=== PATIENT | female | born 1965 | race Two or more races ===

== ENCOUNTER 2024-06-14 10:32 | Outpatient (AMB) | payer OTHER, SELFPAY ==
--- NOTE | 2024-06-14 10:45 | GSCOFFNT_ITS ---
Vital Signs - [facility] 06/14/24 10:46 Height 1.63 m Height Method Stated Weight 70.449 kg Weight Measurement Method Standing Scale BMI 26.6 BP 123/76 Blood Pressure Source Automatic Cuff Blood Pressure Location Right Upper Arm Position Sitting Respiration 18 Pulse 90 Pulse Source Monitor Temp 97.8 F Temp Source Temporal Artery Scan Pulse Oximetry (%) 99 Oxygen Delivery Method Room Air Med/Allergies Allergies & Medications Allergies Sulfa (Sulfonamide Antibiotics) Allergy (Verified 06/14/24 10:48) HIVES Medication Reconciliation Unobtainable 06/14/24 [History Confirmed 06/14/24] [place] Intake Visit Data Collection New Patient or Established: Established Patient (seen at [facility] within 3 years) Reason for Visit:: ILEOSTOMY REVERSAL Pain Present Currently: Yes Pain Location: Abdomen Pain scale:: 5 Pain Scale Used: Branett-Pastor/Numerical Accessibility Lift Technician Required: No PCP or OBGYN visit in last 3 months: Yes Hx Now: No Do You Feel Safe at Home: Yes Authorities Contacted: N/A Smoking Status Smoking Status: Never smoker Immunization / Flu Flu Vaccine in the Last 12 Months: No Flu Vaccine Exclusion Criteria: No Exclusion Criteria Past Medical History Surgical History SURGICAL: Positive Abdominal Surgery OTHER SURGICAL HX: Other surgical history: SIGMOIDOSCOPY Social History SMOKING STATUS: Smoking status: Never smoker Travel Risk Travel Hx Recent Travel: No HPI HPI Narrative 59F referred for reversal of loop ileostomy. 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 Pt had followed with Dr Mcelroy and underwent sigmoidoscopy 04/13/2024 showing a normal anal canal and rectum, and an intact colorectal anastomosis. She was planned for ileostomy reversal May 2024 but because of a change in accepted insurances she is no longer able to follow up with Dr Mcelroy. Pt has developed TIAN requiring hospitalization more than once due to dehyration from her ileostomy; she states she has not taken imodium and had not been aware of methods for managing ileostomy output. 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, chronic anemia, hypotension PSHx: Remote hysterectomy for anemia, gastric bypass in 2005, robotic converted to open LAR with cystectomy/cystorrhaphy and diverting loop ileostomy at 10/2023 Meds: Midodrine, sodium citrate, protonix Allergies: Sulfa Social hx: pt quit smoking cigarettes and EtOH after surgery last year Family hx: brother undergoing workup for prostate CA, mother had ?uterine CA ROS Review of Systems Systems Reviewed: All systems reviewed, normal except as documented Objective/Exam General General Appearance: alert, cooperative and well groomed Resp Respiratory exam: Absent respiratory distress Abdominal Abdominal exam: Present soft, incision (midline incision healed) and other (ileostomy pink with liquid stool in appliance); Absent distention or tenderness Results Pathology of LAR noted, no evidence of malignancy Pt underwent full colonoscopy in 2023 before surgical intervention as well as sigmoidectomy 04/2024 showing an intact anastomosis Assessment & Plan Diagnosis / Problem List (1) Ileostomy present: Status: Acute Assessment & Plan: 59F with history of a 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 Pt underwent preoperative workup for ileostomy reversal showing her anastomosis is patent and intact, and has suffered dehydration related to ileostomy output so she is understandably eager to schedule reversal surgery. I explained benefits/risks including need for laparotomy, bleeding, infection, hernia and difficulty managing BMs postoperatively including incontinence which should improve with time. Pt expressed understanding and would like to proceed Plan: Ileostomy reversal Wed 06/27 Office Procedures GNS Level of Care Nursing/Assessment Patient Status: Established Patient Nursing Assessment/Reassesment: Medication Reconciliation, Update PMH in EMR and Vital Signs Coordination of Care: Complex Care and Chronic Disease 1-5, Education Complex Pt/Fam, Consent,records obtained, informed consent, Results/Orders obtained and Staff clarify orders Established Patient Charge Established Patient Point Assignment: 95 Established Patient Point Charge: EP Level 3 (80-115) Patient Portal Questionaires Social History Tobacco History Smoking Status: Never smoker Domestic Abuse History Do You Feel Safe at Home: Yes Review of Systems Report any current symptoms Only answer those that you have currently: Past Medical History Past Medical History Have you ever been diagnosed with any of the following:
[2024-06-14 10:46] VITALS: BP 123/76; PULSE 90; RESP 18; TEMP 36.6; O2SAT 99; BMI 26.6
== END 2024-06-14 11:20 | disposition home or self-care (01) ==
LOC: HODSRG 10:32
PROVIDERS: PCP Family Medicine; Referring Provider Family Medicine; Supervising Provider Surgery; Visit Provider Surgery
DX: Z01.818 Encounter for other preprocedural examination (principal); Z43.2 Encounter for attention to ileostomy
CPT/HCPCS: 99213; G0463

== ENCOUNTER 2024-06-27 05:40 | Inpatient (IN) | payer OTHER, SELFPAY ==
[2024-06-26 10:05] VITALS: BMI 27.1
[2024-06-26 11:12] LABS: Basophils # (Auto) 0.1 Thou/mm3 (0.0-0.2); Basophils % (Auto) 1 % (0-2.5); Eosinophils # (Auto) 0.3 Thou/mm3 (0.0-0.5); Eosinophils % (Auto) 3 % (0-10); Hematocrit 29.7 % (36.0-46.0); Hemoglobin 9.3 g/dL (12.0-16.0); Immature Granulocytes % (Auto) 1 % (0-0); Immature Granulocytes Auto 0.07 Thou/mm3 (0.00-0.00); Lymphocytes # (Auto) 1.6 Thou/mm3 (1.0-4.8); Lymphocytes % (Auto) 17 % (10-50); Mean Corpuscular HGB Conc 31.3 g/dl (31.0-37.0); Mean Corpuscular Volume 90 fL (80-100); Monocytes # (Auto) 0.9 Thou/mm3 (0.0-0.8); Monocytes % (Auto) 10 % (0-12); Neutrophils # (Auto) 6.6 Thou/mm3 (1.8-7.7); Neutrophils % (Auto) 70 % (37-80); Nucleated Red Blood Cell % 0 /100 WBC (0); Platelet Count 347 Thou/mm3 (140-440); RDW Standard Deviation 54.6 fL (36.4-46.3); Red Blood Count 3.32 Miln/mm3 (4.00-5.20); White Blood Count 9.5 Thou/mm3 (3.6-11.0)
[2024-06-26 11:23] LABS: Alanine Aminotransferase 30 U/L (10-49); Albumin, Serum 4.1 gm/dL (3.5-5.0); Albumin/Globulin Ratio 1.5 (1.2-2.2); Anion Gap 12 (7-16); Aspartate Amino Transferase 33 U/L (0-34); BUN/Creatinine Ratio 18 Ratio (12-20); Bilirubin,Total 0.2 mg/dL (0.3-1.2); Blood Urea Nitrogen 30 mg/dL (9-23); Calcium 9.5 mg/dL (8.3-10.6); Calcium (Corrected) 9.5 mg/dL (8.5-10.1); Chloride 113 mMol/L (98-107); Creatinine (Component) 1.7 mg/dL (0.6-1.3); Estimated Creatinine Clearance 34.2 mL/min (>60); Globulin 2.7 gm/dL (2.3-3.5); Glucose 95 mg/dL (74-106); Osmolality,Calculated 280 (275-295); Potassium 3.9 mMol/L (3.4-5.1); Sodium 137 mMol/L (136-145); Total Protein 6.8 gm/dL (5.7-8.2); eGFR 35 See Note
[2024-06-26 11:32] LABS: Partial Thromboplastin Time 32.7 Seconds (22.0-36.0); Prothrombin Time 10.7 Seconds (9.0-12.2)
[2024-06-26 11:34] LABS: Alkaline Phosphatase 222 U/L (46-116)
[2024-06-26 11:35] LABS: Carbon Dioxide 11.7 mMol/L (20.0-31.0)
--- NOTE | 2024-06-26 12:26 | SUR.PREOP ---
Co2 11.7, Hgb 9.3, labs reviewed with Dr Crouch. ok to proceed.
--- NOTE | 2024-06-26 13:17 | SUR.PREOP ---
BMP to be drawn on arrival, Dr Jarquin orders.
[2024-06-27] VITALS (13 sets, daily range): BP systolic 90–131; BP diastolic 57–80; PULSE 53–106; RESP 12–20; TEMP 36.3–36.6; O2SAT 92–100; BMI 27.1
[2024-06-27] MEDS: SODIUM CHLORIDE 0.9% 500 ML 500 ML 20 ML IV (06:33)
[2024-06-27 06:45] LABS: Anion Gap 12 (7-16); BUN/Creatinine Ratio 15 Ratio (12-20); Blood Urea Nitrogen 29 mg/dL (9-23); Calcium 9.8 mg/dL (8.3-10.6); Chloride 114 mMol/L (98-107); Creatinine (Component) 1.9 mg/dL (0.6-1.3); Estimated Creatinine Clearance 30.5 mL/min (>60); Glucose 90 mg/dL (74-106); Osmolality,Calculated 281 (275-295); Potassium 5.1 mMol/L (3.4-5.1); Sodium 138 mMol/L (136-145); eGFR 30 See Note
[2024-06-27 06:46] LABS: Carbon Dioxide 12.5 mMol/L (20.0-31.0)
--- NOTE | 2024-06-27 07:15 | CHAP ---
Patient was very nervous and emotional. She had a previous bad experience from a procedure. I listened and gave reassurance and comfort. Both her and I held her hands and I prayed with her. She calmed down some and the doctor came in and was giving more reassurance as I left.
--- NOTE | 2024-06-27 09:02 | PD.SUROPNT ---
Date of Procedure 06/27/24 Pre Op Diagnosis Ileostomy status Post Op Diagnosis Same Procedure Reversal of ileostomy Findings Cbnf-sy-tter ileoileal anastomosis created Procedure Description After discussion of risks and benefits, patient was brought to the operating room, SCDs were placed and general anesthesia was induced. Her existing loop ileostomy was closed using a running 2-0 silk suture and she was prepped and draped in usual sterile fashion. A Healy catheter was placed and she received preoperative antibiotics. After timeout an elliptical peristomal incision was made with a #15 blade. The tissues were dissected using a combination of electrocautery and blunt dissection until both the afferent and efferent limbs of the ileostomy were freed from the fascia and were sufficiently mobile. The ileostomy was transected on the afferent and efferent limbs using a 60 mm [place] stapler with a gold load and the associated mesentery of the ileostomy was transected with an Enseal device. An ilio ileal anastomosis was made between the afferent and efferent limbs using 2 sequential fires of the 60 mm stapler again with gold loads. The new lumen was examined and was noted to be patent with no signs of bleeding. The common enterotomy was closed with 2 fires of the 60 mm stapler using a green load and the staple line was oversewn with a 3-0 Vicryl suture in a running and locking fashion. 2 Lembert sutures were performed with a 3-0 Vicryl suture at the crotch of the anastomosis. The ileum was then returned to the abdomen. The fascia was closed with figure of 8 sutures using 0 Ethibond and the wound was irrigated. Hemostasis was achieved with electrocautery. The wound was closed with a 2-0 Vicryl pursestring suture and covered with Adaptic, gauze and Tegaderm. Patient was extubated without complication and brought to PACU in stable condition Pathology / specimen Other (Ileostomy) Estimated Blood Loss 50 Surgeon Emeli Crouch MD Surgical Staff Operation Date: 06/27/24 07:30 Case Staff Anesthesiologist: Haile Jarquin RNmine promotor: Trisha Valencia
--- NOTE | 2024-06-27 09:11 | SUR.PHASEI ---
Addendum entered by Ana Maria Roth RN 06/27/24 09:46: Dr. Jarquin requested blood glucose, will obtain and input into EMR Original Note: 0911 Patient arrived to recovery resting in bed, drowsy and talking with staff, on oxygen 4L via nasal cannula, breathing unlabored, patients heart rate elevated, anesthesia provider aware-no new order, will monitor patient, patient endorses pain-anesthesia provider medicated patient, will monitor patients pain, the remainder of patients vital signs are stable, dressing intact to abdomen; sutures, gauze, tegaderm, no bleeding noted, lung sounds clear upon auscultation, bilateral radial pulses present when palpated, report received from Fermin ZAPATA/Ivan ZAPATA and Dr. Jarquin.
--- NOTE | 2024-06-27 10:05 | SUR.PHASEI ---
1005 Patient eating ice chips; tolerating well denies nausea
--- NOTE | 2024-06-27 10:11 | SUR.PHASEI ---
1011 Patient at bedside talking with patient
--- NOTE | 2024-06-27 10:55 | SUR.PHASEI ---
1039 Report given to Claudia Parks RN, patient meets discharge criteria from recovery, awake and talking with staff, on oxygen 2L via nasal cannula, breathing unlabored, vital signs stable, per patient her pain is improved and denies pain, states, I'm just sore , dressing intact; no bleeding noted, eating ice chips; tolerating well, denies nausea. 1048 Patient transported to room 377 without incident. 1055 Patient called to notify of patient room number as well as all questioned answer, stated he would be going to her room now.
--- NOTE | 2024-06-27 11:28 | ESCONSULT_ITS ---
<Statement entered by Valentina Mccormick MD - 06/30/24 07:50> I reviewed above note and agree with findings and plans. I have also personally examined the patient with medicine team and went over assessment and plan with medical team including photography intern and resident physician. <Statement entered by Bozena Piña MD - 06/27/24 15:40> I discussed with and supervised my co-resident involved in the care of this patient. I agree with the assessment and plan as documented above. Consulted by general surgery on a 59 year old female with PMH of infiltrative polypoid cysitits s/p resected with partial cystectomy an diverting loop ileostomy who underwent ileostomy reversal and anastamsosis today. Labs prior to the surgery showed NAGMA which suspect related to GI losses related to the ileostomy. She was also noted to have an TIAN. Upon evaluation, patient is post- op and complaining of pain. Surgical site is bandaged with clean gauze. We will follow up with her chemistry panel post-surgery and again tonight, and will give IV fluids to hydrate the patient and to treat the TIAN. Will monitor I&O. Pain management per general surgery. 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 Patient was admitted to the hospital by general surgery for reversal ileostomy. Patient underwent reversal ileostomy today with no complications. In assessment patient stated that she had been told in the past that her kidneys were at 100% likely due to her ileostomy bag which was having a lot of output. As per patient she was placed on medication to try and help with her acidosis and she was also placed on a medication to increase her blood pressure as well. Upon chart review patient was found to be on midodrine in the past as well as sodium citrate. Patient reports that she has not had any problems with urination or any changes in coloring in her urine, but that she does mention that she frequently emptied her ileostomy bag multiple times throughout the day even though it was not full. She also mentioned that she could have possibly had better oral intake. She stated she follow-up with nephrology in [place], but would like to see another nephrology specialist. Otherwise patient's labs and vitals have been stable. PMH: As above FMH: Mother cancer, but patient unable to specify which 1, father of an [facility] Surgical Hx: Gastric bypass, cystectomy with diverting loop ileostomy, C- sections, hysterectomy Allergies: Sulfa Social Hx: Patient used to smoke 4 cigarettes every other day but quit around 1 year ago, denies any alcohol or illicit drugs Medications: Midodrine 5 mg, sodium citrate, and pantoprazole cc:: cc: Emeli Crouch MD Review of Systems Review of Systems Narrative Review of Systems: Constitutional: Denies sweats, Denies weight loss/gain, Denies fever, Denies chills. HEENT: Denies hearing loss, Denies ear pain, Denies postnasal drip, Denies double vision, Denies blurry vision. Respiratory: Denies shortness of breath, Denies cough, Denies wheezing. Cardiovascular: Denies chest pain, Denies palpitations, Denies sudden loss of consciousness. GI: Denies blood in stool, Denies constipation, Admits abdominal pain, Denies difficulty swallowing, Denies nausea or vomit. : Denies urinary incontinence, Denies pain while urinating, Denies increased urinary frequency. MSK: Denies joint pain, Denies joint swelling, Denies numbness. Skin: Denies rash, Denies itching, Denies easy bruising. Neuro: Denies headaches, Denies dizziness, Denies seizures. 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 status post resection with partial cystectomy and diverting loop ileostomy, chronic anemia, gout, and hypotension FMH: Mother cancer, but patient unable to specify which 1, father of an [facility] Surgical Hx: Gastric bypass, cystectomy with diverting loop ileostomy, C- sections, hysterectomy Allergies: Sulfa Social Hx: Patient used to smoke 4 cigarettes every other day but quit around 1 year ago, denies any alcohol or illicit drugs Medications: Midodrine 5 mg, sodium citrate, and pantoprazole Exam Vital Signs Temp Pulse Resp BP Pulse Ox O2 Flow Rate 97.6 F 89 13 114/68 99 2 06/27/24 10:41 06/27/24 10:41 06/27/24 10:41 06/27/24 10:41 06/27/24 10:41 06/27/24 10:41 Narrative Exam General: A/O x3, mild distress due to pain, well-nourished, well-developed Eyes: PERRL, EOMI. Anicteric, vision grossly intact. Ears: No ear pain, no ear discharge, Hearing grossly intact. Nose: No nasal discharge. Mouth/Throat: Moist mucous membranes, no redness, no lesions. Neck: Neck supple, non-tender, no cervical lymphadenopathy. Lungs: Clear ALEXIA to auscultation and percussion, No accessory muscle use. Cardio: Normal S1/S2, regular rhythm, no murmurs, no JVD Abdomen: Soft, tender near incision site, no palpable masses, peristalsis present, no guarding or rebound. Extremities: Symmetrical, no significant deformities, no peripheral edema , non-tender, peripheral pulses presents. Skin: No rashes, no lesions, warm to touch. Neuro: No focal neurological deficits. motor and sensory intact Psych: Cooperative, appropriate mood and effect. Results Labs 06/26/24 10:35 06/27/24 06:09 Labs: BMP 06/26/24 06/27/24 10:35 06:09 Sodium 137 138 Potassium 3.9 5.1 D Chloride 113 H 114 H Carbon Dioxide 11.7 L* 12.5 L* BUN 30 H 29 H Creatinine 1.7 H 1.9 H Glucose 95 90 Calcium 9.5 9.8 Liver Function 06/26/24 Range/Units 10:35 Total Bilirubin 0.2 L (0.3-1.2) mg/dL AST 33 (0-34) U/L ALT 30 (10-49) U/L Alkaline Phosphatase 222 H (46-116) U/L Albumin 4.1 (3.5-5.0) gm/dL Quality Measures Quality Measures VTE prophylaxis Medications Home Medications and Allergies Home Medications ?Medication ?Instructions ?Recorded ?Confirmed ?Type allopurinol 300 mg tablet 300 mg PO DAILY Gout 5 06/26/24 History pantoprazole 40 mg tablet,delayed 40 mg PO DAILY Stoma ch issues 06/26/24 06/26/24 History release Allergies Allergy/AdvReac Type Severity Reaction Status Date / Time Sulfa (Sulfonamide Allergy HIVES Verified 06/27/24 09:09 Antibiotics) Visit Medications Sodium Chloride (Ns) 500 mls @ 20 mls/hr IV .Q24H ONE Stop: 06/28/24 05:59 Last Admin: 06/27/24 06:33 Dose: 20 mls/hr Meperidine HCl (Meperidine Inj 50 Mg/Ml Vial) 12.5 mg IV Q5M PRN PRN Reason: SHIVERING Stop: 07/02/24 08:45 Metoprolol Tartrate (Metoprolol Tartrate Inj 1 Mg/Ml Amp 5 Ml) 1 mg IVP Q5MIN PRN PRN Reason: TACHYCARDIA Midazolam HCl (Midazolam Inj 1 Mg/Ml Vial 2 Ml) 1 mg IV Q5MIN PRN PRN Reason: ANXIETY Stop: 06/28/24 08:45 Discontinued Medications Fentanyl Citrate (Fentanyl Cit Inj 50 Mcg/Ml Amp 2ml) 50 mcg IV Q5MIN PRN PRN Reason: PAIN SCALE 4-10(Mod-Sev Stop: 06/27/24 10:47 Hydralazine HCl (Hydralazine Inj 20 Mg/Ml Vial) 5 mg IV Q20MIN PRN PRN Reason: SEE COMMENTS Stop: 06/27/24 10:47 Hydromorphone HCl (Hydromorphone Inj 2 Mg/Ml Vial) 0.5 mg IV Q10MIN PRN PRN Reason: PAIN SCALE 4-10(Mod-Sev Stop: 06/27/24 10:47 Lactated Ringer's (Lactated Ringers) 1,000 mls @ 20 mls/hr IV .Q24H ONE Stop: 06/28/24 05:59 Metoclopramide HCl (Metoclopramide Inj 5 Mg/Ml Vial 2 Ml) 10 mg IVP X1 PRN; Protocol PRN Reason: NAUSEA OR VOMITING Stop: 06/27/24 10:47 Ondansetron HCl (Ondansetron Inj 2 Mg/Ml Inj 2 Ml) 4 mg IV X1 PRN PRN Reason: NAUSEA OR VOMITING Stop: 06/27/24 10:47 Assessment & Plan Plan 59-year-old female with past medical history of 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 #TIAN #Hyperchloremic non-anion gap metabolic acidosis ? Patient is creatinine 1.7 on admission and on repeat today was 1.9 ? Bicarb was 11.7 and today was 12.5 ? Chloride 114 today ? This could have been due to dehydration in the setting of ileostomy along with poor oral intake Plan: ? Recommend IV fluids at 80 cc/h for now ? Recommend repeat BMP or renal panel in the afternoon ? Recommend renally dosing medication ? Recommend avoiding nephrotoxic agents ?Will consider nephrology consult if patient's kidney function does not improve ? Recommend daily CMP's #Normocytic normochromic anemia ? Hemoglobin 9.3 on admission Plan: ? Recommend iron studies to rule out iron deficiency anemia ? Recommend to transfuse if hemoglobin less than 7 ? Recommend daily CBCs #Hx of hypotension ? Patient's blood pressure seems to be well-controlled for now Plan: ? Recommend IV fluids for now ? Recommend starting midodrine 5 mg as patient is MAP below 65 #Hx of gout ? Recommend to continue patient's allopurinol #Colovesicular fistula s/p cystectomy and diverting loop ileostomy s/p reversal ileostomy ? Continue management as per general surgeon Thank you for allowing us to be part of the patient's care. Internal medicine team. Disposition: Consulted for TIAN and NAGMA Diet: clear liquid diet GI prophylaxis: protonix DVT prophylaxis: Code: Full code Case disclosed with Attending Dr. Mccormick and My senior Dr. Piña PGY3. Bridger Hussein PGY1
[2024-06-27] MEDS: MORPHINE SULF INJ 10 MG/ML VIAL 4 MG IVP ×3 (12:00→21:24)
[2024-06-27] MEDS: SODIUM CHLORIDE 0.9% 1000 ML 1,000 ML 50 ML IV (12:04)
[2024-06-27] MEDS: ACETAMINOPHEN IVPB 1,000 MG/100 ML VIAL 250 MG IV ×3 (12:04→17:18)
--- NOTE | 2024-06-27 12:38 | PC.NURSE ---
Patient arrived to med surg unit from surgery via bed.
[2024-06-27] MEDS: oxyCODONE HCL 5 MG IR TAB PO ×2 (13:12→19:19)
--- NOTE | 2024-06-27 15:01 | PD.ANESPROG ---
Documentation for date of: 06/27/24 ANESTHESIA NOTE: Patient had GETA for ileostomy reversal this morning. Pre-op, I saw her with her family visitor. Her pre-op chemistry is abnormal showing elevated BUN/Cr, low bicarb, high Cl. Per chart, she had initial surgery at outside facility and had post op TIAN. I discussed this with them and possible risk of worsening renal injury. She did well intra-op. She received 1 L NS and about 200 cc LR intra-op, UOP 100 cc. I gave her half amp of NaBicarb also slowly IV. She did well in PACU, VSS, post op pain controlled, and she was later transferred to floor. Given her pre-op metabolic abnormality, it was discussed with the surgeon and recommended post op medicine consult and chemistry follow up at 7 pm today. Will defer further management to the floor team. Haile Jarquin MD Anesthesia Progress Note Progress Note Most recent Vital Signs: Last Vital Signs Temp 97.8 F 06/27/24 12:00 Pulse 84 06/27/24 12:00 Resp 19 06/27/24 12:00 BP 98/62 06/27/24 12:00 Pulse Ox 99 06/27/24 12:00 O2 Del Method Nasal Cannula 06/27/24 12:00 O2 Flow Rate 2 06/27/24 12:00
[2024-06-27] MEDS: SODIUM CHLORIDE 0.9% 1000 ML 1,000 ML 80 ML IV (16:03)
--- NOTE | 2024-06-27 19:26 | PC.NURSE ---
Contacted MD regarding lexi's blood pressure. Blood pressure was first taken by [employer] and was low. Nurse rechecked and assessed patient. Nurse obtained a 98/65 blood pressure. Patient requested pain medication oxycodone and educated patient on the effect on narcotics on blood pressure. Per MD, it is okay to give the patient the oxycodone.
[2024-06-27 19:53] LABS: Anion Gap 12 (7-16); Calcium 8.6 mg/dL (8.3-10.6); Chloride 111 mMol/L (98-107); Potassium 4.4 mMol/L (3.4-5.1); Sodium 136 mMol/L (136-145)
[2024-06-27 19:55] LABS: BUN/Creatinine Ratio 15 Ratio (12-20); Blood Urea Nitrogen 26 mg/dL (9-23); Creatinine (Component) 1.7 mg/dL (0.6-1.3); Estimated Creatinine Clearance 35.9 mL/min (>60); Glucose 237 mg/dL (74-106); Osmolality,Calculated 284 (275-295); eGFR 35 See Note
[2024-06-27 19:59] LABS: Carbon Dioxide 12.6 mMol/L (20.0-31.0)
[2024-06-28] VITALS (8 sets, daily range): BP systolic 91–102; BP diastolic 55–64; PULSE 65–78; RESP 16–97; TEMP 36.1–36.3; O2SAT 96–99
[2024-06-28] MEDS: ACETAMINOPHEN IVPB 1,000 MG/100 ML VIAL 250 MG IV ×3 (00:14→18:18)
[2024-06-28] MEDS: oxyCODONE HCL 5 MG IR TAB PO ×4 (01:35→20:42)
[2024-06-28] MEDS: MORPHINE SULF INJ 10 MG/ML VIAL 4 MG IVP ×5 (03:00→23:10)
[2024-06-28 05:56] LABS: Basophils % (Auto) 0 % (0-2.5); Eosinophils % (Auto) 0 % (0-10); Hematocrit 25.9 % (36.0-46.0); Immature Granulocytes % (Auto) 1 % (0-0); Immature Granulocytes Auto 0.09 Thou/mm3 (0.00-0.00); Lymphocytes % (Auto) 9 % (10-50); Mean Corpuscular HGB Conc 30.9 g/dl (31.0-37.0); Mean Corpuscular Volume 91 fL (80-100); Monocytes # (Auto) 0.8 Thou/mm3 (0.0-0.8); Monocytes % (Auto) 7 % (0-12); Neutrophils # (Auto) 9.6 Thou/mm3 (1.8-7.7); Neutrophils % (Auto) 84 % (37-80); Nucleated Red Blood Cell % 0 /100 WBC (0); Platelet Count 316 Thou/mm3 (140-440); RDW Standard Deviation 55.1 fL (36.4-46.3); Red Blood Count 2.86 Miln/mm3 (4.00-5.20); White Blood Count 11.5 Thou/mm3 (3.6-11.0)
[2024-06-28 06:32] LABS: Anion Gap 14 (7-16); BUN/Creatinine Ratio 15 Ratio (12-20); Blood Urea Nitrogen 24 mg/dL (9-23); Calcium 9.1 mg/dL (8.3-10.6); Chloride 112 mMol/L (98-107); Creatinine (Component) 1.6 mg/dL (0.6-1.3); Estimated Creatinine Clearance 38.2 mL/min (>60); Glucose 123 mg/dL (74-106); Magnesium 1.7 mg/dL (1.6-2.6); Osmolality,Calculated 280 (275-295); Phosphorous 4.9 mg/dL (2.4-5.1); Potassium 4.2 mMol/L (3.4-5.1); Sodium 138 mMol/L (136-145); eGFR 37 See Note
[2024-06-28 06:50] LABS: Carbon Dioxide 12.3 mMol/L (20.0-31.0)
[2024-06-28] MEDS: PANTOPRAZOLE 40 MG TABLET PO (08:02)
[2024-06-28] MEDS: allopurinoL 100 MG TABLET 300 MG PO (08:02)
[2024-06-28] MEDS: SODIUM CHLORIDE 0.9% 1000 ML 1,000 ML 80 ML IV (08:05)
--- NOTE | 2024-06-28 08:25 | PD.SURPROG ---
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 Patient states she is doing well, but still in a lot of pain. She rates the pain as a 7 out of 10 and the pain is localized near the incision site where she had the ileostomy reversal. She states that she used all of the acetaminophen that was allocated to her for the day. She is also receiving oxycodone and morphine. Her last morphine infusion was one hour ago and she states that it is helping with the pain, but the pain is always present especially if she touches the incision area. She is also complaining of a rash underneath her breasts and vaginal pruritus. A morales catheter is still in place and contains about 1000 ml of light yellow urine. She is having no discomfort with the morales. She has not yet had a bowel movement and is not passing any flatus. She is on a clear liquid diet and denies any nausea or vomiting, but states that the diet isn't very appetizing. She states that she would like to try getting up and walking today. Patient states that she has not gotten much sleep, but that this is usual for her. Exam Vital Signs Temp Pulse Resp BP Pulse Ox O2 Del Method O2 Flow Rate 97.2 F 65 18 91/60 98 Room Air 2 06/28/24 04:00 06/28/24 04:00 06/28/24 04:00 06/28/24 04:00 06/28/24 04:00 06/28/24 04:00 06/27/24 20:00 Constitutional Constitutional: no acute distress Routine Respiratory Exam Respiratory: Absent respiratory distress or accessory muscle use Routine Abdominal Exam Abdominal: Present tenderness (at incision site ); Absent distended Assessment & Plan Diagnosis (1) Status post reversal of ileostomy: Status: Acute Assessment Additional comments: 59 year old female postop one day of ileostomy reversal. Patient still experiencing pain despite taking morphine, oxycodone, and acetaminophen to manage the pain. BUN and Cr are slightly elevated, but stable. Patient is showing progress. Procedures Procedures Reversal of ileostomy Documented by User: Emeli Crouch MD 06/28/24 11:29 Exam Vital Signs Temp Pulse Resp BP Pulse Ox O2 Del Method O2 Flow Rate 97.2 F 65 18 91/60 98 Room Air 2 06/28/24 04:00 06/28/24 04:00 06/28/24 04:00 06/28/24 04:00 06/28/24 04:00 06/28/24 04:00 06/27/24 20:00 Results Results: Laboratory Laboratory results: results reviewed Assessment & Plan Diagnosis (1) Status post reversal of ileostomy: Status: Acute Plan FLD ELAINE morales Encouraged pt to ambulate in hallways Appreciate [employer] sales
--- NOTE | 2024-06-28 10:37 | PC.SS ---
Joslyn Miller 59-year old female admitted to Med-Surg for Ileostomy Reversal. SS conducted bedside contact with the patient to complete initial assessment and to discuss discharge planning.? Patient confirmed demographic information. Patient identifies her Gary Miller [phone] as her surrogate decision maker. Patient resides at home with her . Pt states she is able to complete all ADL?s independently, no need for any source of DME. Pts PCP is Dr. Chan and her pharmacy of choice is [facility] on [address]. DC options discussed, pt wishes to return home. Pts will provide transportation upon DC. No further intervention required at this time, social sciences chair would be available to address any further concerns. DC Plan: Home Contact: Gary Gregoriola [phone] PCP: Dustin
--- NOTE | 2024-06-28 11:32 | ESPR_ITS ---
<Statement entered by Valentina Mccormick MD - 06/30/24 07:51> I reviewed above note and agree with findings and plans. I have also personally examined the patient with medicine team and went over assessment and plan with medical team including agriculture intern and resident physician. <Statement entered by Bozena Piña MD - 06/28/24 14:45> I discussed with and supervised my co-resident involved in the care of this patient. I agree with the assessment and plan as documented above. No acute problems overnight. Pain better controlled. This morning, patient endorsed rash under her breasts and in her vulvar area treated in the past with anti-fungal powder. Upon examination, minimal erythema however she does endorse dysuria. Will get UA. NAGMA persistent but potassium improved. Will add bicarb. Bozena Piña MD PGY-3 Documentation for date of: 06/28/24 Subjective Subjective Interval history: Patient was seen at bedside this morning. No overnight events. Patient's kidney function has improved over creatinine of 1.6 and her metabolic acidosis is still present, but will start patient on sodium bicarb tablets at this time. Patient also mentioned that she had dysuria therefore we will get a urinalysis. Had Dr. Piña PGY3 discharge coordinator with me for physical exam as patient mentioned that she had noticed a rash in her genital area as well as underneath her breast. During the physical exam she was not noticed to have excoriations or any discharge from her genital area and there were no rash underneath the breast. Patient was advanced to full liquid diet today. No other complaints at this time. Will continue patient on IV fluids for now. Exam Vital Signs Temp Pulse Resp BP Pulse Ox O2 Del Method O2 Flow Rate 97.0 F 70 18 96/62 96 Room Air 2 06/28/24 08:00 06/28/24 08:00 06/28/24 08:00 06/28/24 08:00 06/28/24 08:00 06/28/24 04:00 06/27/24 20:00 Narrative Exam General: A/O x3, mild distress due to pain, well-nourished, well-developed Eyes: PERRL, EOMI. Anicteric, vision grossly intact. Ears: No ear pain, no ear discharge, Hearing grossly intact. Nose: No nasal discharge. Mouth/Throat: Moist mucous membranes, no redness, no lesions. Neck: Neck supple, non-tender, no cervical lymphadenopathy. Lungs: Clear AELXIA to auscultation and percussion, No accessory muscle use. Cardio: Normal S1/S2, regular rhythm, no murmurs, no JVD Abdomen: Soft, tender near incision site, no palpable masses, peristalsis present, no guarding or rebound. Extremities: Symmetrical, no significant deformities, no peripheral edema , non-tender, peripheral pulses presents. Skin: No rashes, no lesions, warm to touch. Neuro: No focal neurological deficits. motor and sensory intact Psych: Cooperative, appropriate mood and effect. Objective Labs 06/28/24 05:00 06/28/24 05:00 Labs: Laboratory Results - last 24 hr 06/27/24 06/28/24 19:13 05:00 WBC 11.5 H RBC 2.86 L Hgb 8.0 L Hct 25.9 L MCV 91 MCH 28.0 MCHC 30.9 L RDW Std Deviation 55.1 H Plt Count 316 D Neut % (Auto) 84 H Lymph % (Auto) 9 L [place] % (Auto) 7 Eos % (Auto) 0 Baso % (Auto) 0 Neut # (Auto) 9.6 H Lymph # (Auto) 1.0 [place] # (Auto) 0.8 Eos # (Auto) 0.0 Baso # (Auto) 0.0 Immature Gran # (Auto) 0.09 H Absolute Nucleated RBC 0.00 Immature Gran % 1 H Nucleated RBC % 0 Sodium 136 138 Potassium 4.4 D 4.2 Chloride 111 H 112 H Carbon Dioxide 12.6 L* 12.3 L* Anion Gap 12 14 BUN 26 H 24 H Creatinine 1.7 H 1.6 H Estim Creat Clear Calc 35.9 L 38.2 L eGFR 35 L 37 L BUN/Creatinine Ratio 15 15 Glucose 237 H D 123 H D Calculated Osmolality 284 280 Calcium 8.6 9.1 Phosphorus 4.9 Magnesium 1.7 Quality Measures Quality Measures VTE prophylaxis Assessment & Plan Assessment Current Active Medications: Generic Name Dose Route Start Last Admin Trade Name Freq PRN Reason Stop Dose Admin Allopurinol 300 mg 06/28/24 09:00 06/28/24 08:02 Allopurinol 100 Mg Tablet PO 07/28/24 08:59 300 mg DAILY CORONA Administration Acetaminophen 1,000 mg in 100 mls @ 250 mls/hr 06/27/24 11:43 06/28/24 07:48 Ofirmev Inj IV 06/30/24 00:23 Not Given Q6HR CORONA Sodium Chloride 1,000 mls @ 80 mls/hr 06/27/24 15:19 06/28/24 08:05 Ns IV 06/28/24 16:18 80 mls/hr .[id number] CORONA Administration Lidocaine 1 patch 06/28/24 09:01 Lidocaine 5% 1 Patch TOP 07/28/24 09:00 DAILY PRN LOCALIZED PAIN Morphine Sulfate 4 mg 06/27/24 11:47 06/28/24 08:03 Morphine Sulf Inj 10 Mg/Ml Vial IVP 07/02/24 11:42 4 mg Q4HR PRN Administration PAIN SCALE 7-10 Ondansetron HCl 4 mg 06/27/24 11:43 Ondansetron Inj 2 Mg/Ml Inj 2 Ml IV 07/27/24 11:42 Q6HR PRN NAUSEA OR VOMITING Protocol Oxycodone HCl 5 mg 06/27/24 11:47 06/28/24 09:39 Oxycodone Hcl 5 Mg Ir Tab PO 07/02/24 11:42 5 mg Q6HR PRN Administration PAIN SCALE 4-6 Pantoprazole Sodium 40 mg 06/28/24 09:00 06/28/24 08:02 Pantoprazole 40 Mg Tablet PO 07/28/24 08:59 40 mg DAILY CORONA Administration Sodium Bicarbonate 325 mg 06/28/24 11:45 Sodium Bicarbonate 650 Mg Tablet PO 07/28/24 11:44 BID CORONA Plan 59-year-old female with past medical history of 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 #TIAN, improving #Hyperchloremic non-anion gap metabolic acidosis ? Patient is creatinine 1.7 on admission and on repeat today was 1.9 ? Bicarb was 12.3 and today was 12.3 ? Chloride 112 today ? This could have been due to dehydration in the setting of ileostomy along with poor oral intake Plan: ? Recommend IV fluids at 80 cc/h for 1 more bag. ?Recommend starting sodium bicarb tablets 325 mg twice daily ? Recommend renally dosing medication ? Recommend avoiding nephrotoxic agents ?Will consider nephrology consult if patient's kidney function does not improve ? Recommend daily CMP's #Leukocytosis ? Most likely reactive in the setting of surgery #Dysuria ? Patient stated that she had some dysuria therefore we will order a urine analysis Plan: ? Recommend following up on urinalysis for possible antibiotic coverage as comes back showing an infection. #Normocytic normochromic anemia ? Hemoglobin 9.3 on admission and 8 today likley in the setting of surgery and hemodilution Plan: ? Recommend to transfuse if hemoglobin less than 7 ? Recommend daily CBCs #Hx of hypotension ? Patient's blood pressure seems to be well-controlled for now Plan: ? Recommend IV fluids for 1 more bag ? Recommend starting midodrine 5 mg as patient is MAP below 65 #Hx of gout ? Recommend to continue patient's allopurinol #Colovesicular fistula s/p cystectomy and diverting loop ileostomy s/p reversal ileostomy ? Continue management as per general surgeon Thank you for allowing us to be part of the patient's care. Internal medicine team. Disposition: Consulted for TIAN and NAGMA, started sodium bicarb tablets and continue IV fluids for 1 more bag Diet: clear liquid diet GI prophylaxis: protonix DVT prophylaxis: Code: Full code Case disclosed with Attending Dr. Mccormick and My senior Dr. Piña PGY3. Bridger Hussein PGY1
[2024-06-28] MEDS: LIDOCAINE 5% 1 PATCH TOP (12:51)
[2024-06-28] MEDS: HEPARIN SOD INJ 5000 UNIT/ML VIAL SC ×2 (13:02→21:14)
[2024-06-28 16:56] LABS: Collection Type, Urine Catheter
[2024-06-28 17:04] LABS: Bacteria,Urine 1+; Bilirubin,Urine Negative (Negative); Blood,Urine Trace (Negative); Clarity,Urine Clear (Clear/Hazy); Color,Urine Colorless (Lt Yel-Yel); Glucose, Urine Negative (Negative); Ketones,Urine Negative (Negative); Leukocyte Esterase,Urine Positive (Negative); Nitrite,Urine Negative (Negative); PH,Urine 5.5 (5.0-7.0); Protein,Urine Trace (Neg - Trace); RBC,Urine 5 /hpf (0-3); Specific Gravity,Urine 1.009 (1.001-1.035); Squamous Epithelial Cell,Urine 5 /hpf (0-5); Urobilinogen,Urine Negative mg/dL (0.0-1.0); WBC,Urine 2 /hpf (0-5)
[2024-06-28] MEDS: SODIUM BICARBONATE 650 MG TABLET 325 MG PO (20:43)
--- NOTE | 2024-06-28 22:00 | PC.NURSE ---
Patient ambulating in hallways.
[2024-06-29] VITALS (7 sets, daily range): BP systolic 91–114; BP diastolic 56–66; PULSE 65–119; RESP 16–98; TEMP 36.1–37.6; O2SAT 93–99
[2024-06-29] MEDS: ACETAMINOPHEN IVPB 1,000 MG/100 ML VIAL 250 MG IV ×2 (00:03→05:41)
[2024-06-29] MEDS: oxyCODONE HCL 5 MG IR TAB PO ×3 (02:36→12:28)
[2024-06-29] MEDS: MORPHINE SULF INJ 10 MG/ML VIAL 4 MG IVP ×2 (05:00→19:35)
[2024-06-29] MEDS: HEPARIN SOD INJ 5000 UNIT/ML VIAL SC ×3 (05:46→21:26)
[2024-06-29 07:03] LABS: Basophils % (Auto) 0 % (0-2.5); Eosinophils # (Auto) 0.2 Thou/mm3 (0.0-0.5); Eosinophils % (Auto) 2 % (0-10); Hematocrit 23.7 % (36.0-46.0); Immature Granulocytes % (Auto) 1 % (0-0); Immature Granulocytes Auto 0.04 Thou/mm3 (0.00-0.00); Lymphocytes # (Auto) 2.1 Thou/mm3 (1.0-4.8); Lymphocytes % (Auto) 29 % (10-50); Mean Corpuscular HGB Conc 30.4 g/dl (31.0-37.0); Mean Corpuscular Hemoglobin 27.8 pg (25.0-35.0); Mean Corpuscular Volume 92 fL (80-100); Monocytes # (Auto) 0.5 Thou/mm3 (0.0-0.8); Monocytes % (Auto) 8 % (0-12); Neutrophils # (Auto) 4.3 Thou/mm3 (1.8-7.7); Neutrophils % (Auto) 60 % (37-80); Nucleated Red Blood Cell % 0 /100 WBC (0); Platelet Count 163 Thou/mm3 (140-440); RDW Standard Deviation 57.7 fL (36.4-46.3); Red Blood Count 2.59 Miln/mm3 (4.00-5.20); White Blood Count 7.2 Thou/mm3 (3.6-11.0)
[2024-06-29 07:21] LABS: Anion Gap 12 (7-16); BUN/Creatinine Ratio 15 Ratio (12-20); Blood Urea Nitrogen 21 mg/dL (9-23); Calcium 8.9 mg/dL (8.3-10.6); Carbon Dioxide 15.1 mMol/L (20.0-31.0); Chloride 114 mMol/L (98-107); Creatinine (Component) 1.4 mg/dL (0.6-1.3); Estimated Creatinine Clearance 43.6 mL/min (>60); Glucose 77 mg/dL (74-106); Magnesium 1.7 mg/dL (1.6-2.6); Osmolality,Calculated 283 (275-295); Phosphorous 3.9 mg/dL (2.4-5.1); Potassium 3.5 mMol/L (3.4-5.1); Sodium 141 mMol/L (136-145); eGFR 44 See Note
[2024-06-29 08:12] LABS: Hemoglobin 7.2 g/dL (12.0-16.0)
[2024-06-29] MEDS: SODIUM BICARBONATE 650 MG TABLET 325 MG PO ×2 (08:38→21:25)
[2024-06-29] MEDS: allopurinoL 100 MG TABLET 300 MG PO (08:39)
[2024-06-29] MEDS: PANTOPRAZOLE 40 MG TABLET PO (08:40)
--- NOTE | 2024-06-29 09:00 | PD.SURPROG ---
Documentation for date of: 06/29/24 Subjective Subjective Narrative: Pain controlled, no nausea, tolerating FLD and passing gas, ambulating in hallways. Vitals remaining normal, Hgb 7.2 noted, pt denies shortness of breath and states she feels weak at baseline Exam Vital Signs Temp Pulse Resp BP Pulse Ox O2 Del Method O2 Flow Rate 97.2 F 74 19 93/63 99 Room Air 2 06/29/24 08:00 06/29/24 08:00 06/29/24 08:00 06/29/24 08:00 06/29/24 08:00 06/29/24 08:00 06/27/24 20:00 Constitutional Constitutional: no acute distress Routine Respiratory Exam Respiratory: Present no resp distress Routine Abdominal Exam Abdominal: Present soft and wound (RLQ wound with no surrounding erythema, no fluctuance or bleeding); Absent tenderness or distended Results Results: Laboratory Laboratory results: results reviewed Assessment & Plan Plan 59F who presented for scheduled loop ileostomy reversal 06/27 after colectomy for colovesicular fistula, gradually recovering Advance to bland diet Ceftriaxone for UTI PO pain meds Continue ambulation/IS Procedures Procedures Reversal of ileostomy
--- NOTE | 2024-06-29 09:15 | CHAP ---
Patient expressed gratitude for visit and prayer.
--- NOTE | 2024-06-29 09:37 | ESPR_ITS ---
<Statement entered by Valentina Mccormick MD - 07/01/24 13:23> I reviewed above note and agree with findings and plans. I have also personally examined the patient with medicine team and went over assessment and plan with medical team including internet cafe manager and resident physician. Documentation for date of: 06/29/24 Subjective Subjective Interval history: Patient was seen at bedside this morning. No overnight events. Patient's hemoglobin did drop from 8-7.2 today, but there are no active signs of bleeding. Patient's kidney function is improving and bicarb is improving as well. Will continue with oral hydration for now. Patient's UA was positive for bacteria therefore we will start Rocephin 1 g daily and get urine culture prior to starting antibiotics. Patient is still complaining of vaginal itchiness therefore we will start patient on clotrimazole vaginal ointment. Exam Vital Signs Temp Pulse Resp BP Pulse Ox O2 Del Method O2 Flow Rate 97.2 F 74 19 93/63 99 Room Air 2 06/29/24 08:00 06/29/24 08:00 06/29/24 08:00 06/29/24 08:00 06/29/24 08:00 06/29/24 08:00 06/27/24 20:00 Narrative Exam General: A/O x3, no acute distress, well-nourished, well-developed Eyes: PERRL, EOMI. Anicteric, vision grossly intact. Ears: No ear pain, no ear discharge, Hearing grossly intact. Nose: No nasal discharge. Mouth/Throat: Moist mucous membranes, no redness, no lesions. Neck: Neck supple, non-tender, no cervical lymphadenopathy. Lungs: Clear ALEXIA to auscultation and percussion, No accessory muscle use. Cardio: Normal S1/S2, regular rhythm, no murmurs, no JVD Abdomen: Soft, mildly tender near incision site, no palpable masses, peristalsis present, no guarding or rebound. Extremities: Symmetrical, no significant deformities, no peripheral edema , non-tender, peripheral pulses presents. Skin: No rashes, no lesions, warm to touch. Neuro: No focal neurological deficits. motor and sensory intact Psych: Cooperative, appropriate mood and effect. Objective Labs 06/29/24 06:09 06/29/24 06:09 Labs: Laboratory Results - last 24 hr 06/28/24 06/29/24 16:25 06:09 WBC 7.2 RBC 2.59 L Hgb 7.2 L Hct 23.7 L MCV 92 MCH 27.8 MCHC 30.4 L RDW Std Deviation 57.7 H Plt Count 163 D Neut % (Auto) 60 Lymph % (Auto) 29 [place] % (Auto) 8 Eos % (Auto) 2 Baso % (Auto) 0 Neut # (Auto) 4.3 Lymph # (Auto) 2.1 [place] # (Auto) 0.5 Eos # (Auto) 0.2 Baso # (Auto) 0.0 Immature Gran # (Auto) 0.04 H Absolute Nucleated RBC 0.00 Immature Gran % 1 H Nucleated RBC % 0 Sodium 141 Potassium 3.5 D Chloride 114 H Carbon Dioxide 15.1 L Anion Gap 12 BUN 21 Creatinine 1.4 H Estim Creat Clear Calc 43.6 L eGFR 44 L BUN/Creatinine Ratio 15 Glucose 77 Calculated Osmolality 283 Calcium 8.9 Phosphorus 3.9 Magnesium 1.7 Ur Collection Type Catheter Urine Color Colorless A Urine Clarity Clear Urine pH 5.5 Ur Specific [place] 1.009 Urine Protein Trace Urine Glucose (UA) Negative Urine Ketones Negative Urine Blood Trace Urine Nitrite Negative Urine Bilirubin Negative Urine Urobilinogen (Auto) Negative Ur Leukocyte Esterase Positive Urine RBC 5 H Urine WBC 2 Ur Squamous Epith Cells 5 Urine Bacteria 1+ A Quality Measures Quality Measures VTE prophylaxis Assessment & Plan Assessment Current Active Medications: Generic Name Dose Route Start Last Admin Trade Name Bee PRN Reason Stop Dose Admin Acetaminophen 650 mg 06/29/24 08:59 Acetaminophen 325 Mg Tablet PO 07/29/24 08:58 Q6H PRN PAIN SCALE 1-3 (mild Allopurinol 300 mg 06/28/24 09:00 06/29/24 08:39 Allopurinol 100 Mg Tablet PO 07/28/24 08:59 300 mg DAILY CORONA Administration Heparin Sodium (Porcine) 5,000 unit 06/28/24 14:00 06/29/24 05:46 Heparin Sod Inj 5000 Unit/Ml Vial SC 07/12/24 13:59 5,000 unit Q8HR CORONA Administration Ceftriaxone Sodium 1,000 mg/ 50 mls @ 100 mls/hr 06/29/24 07:55 Sodium Chloride IV 07/06/24 07:54 QDAY CORONA Lidocaine 1 patch 06/28/24 09:01 06/28/24 12:51 Lidocaine 5% 1 Patch TOP 07/28/24 09:00 1 patch DAILY PRN Administration LOCALIZED PAIN Ondansetron HCl 4 mg 06/27/24 11:43 Ondansetron Inj 2 Mg/Ml Inj 2 Ml IV 07/27/24 11:42 Q6HR PRN NAUSEA OR VOMITING Protocol Oxycodone/Acetaminophen 1 tab 06/29/24 08:59 Oxycodone/Apap 5/325 Tablet PO 07/04/24 08:58 Q4H PRN PAIN SCALE 4-10(Mod-Sev Pantoprazole Sodium 40 mg 06/28/24 09:00 06/29/24 08:40 Pantoprazole 40 Mg Tablet PO 07/28/24 08:59 40 mg DAILY CORONA Administration Sodium Bicarbonate 325 mg 06/28/24 11:45 06/29/24 08:38 Sodium Bicarbonate 650 Mg Tablet PO 07/28/24 11:44 325 mg BID CORONA Administration Plan 59-year-old female with past medical history of 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 #TIAN, improving #Hyperchloremic non-anion gap metabolic acidosis ? Patient is creatinine 1.7 on admission and on repeat today was 1.4 ? Bicarb was 12.3 and today was 15.1 ? Chloride 114 today ? This could have been due to dehydration in the setting of ileostomy along with poor oral intake Plan: ?Recommend continue sodium bicarb tablets 325 mg twice daily ? Recommend renally dosing medication ? Recommend avoiding nephrotoxic agents ? Recommend daily CMP's #Leukocytosis, resolved ? Most likely reactive in the setting of surgery #UTI #Dysuria ? Patient stated that she had some dysuria therefore we will order a urine analysis -UA positive for bacteria Plan: ? Recommend starting IV Rocephin 1gm qday [06/29/2024-] - Recommend Urine culture #Normocytic normochromic anemia ? Hemoglobin 9.3 on admission and 7.2 today likley in the setting of surgery and hemodilution Plan: ? Recommend to transfuse if hemoglobin less than 7 ? Recommend daily CBCs #Hx of hypotension ? Patient's blood pressure seems to be well-controlled for now Plan: ? Recommend starting midodrine 5 mg as patient is MAP below 65 #Hx of gout ? Recommend to continue patient's allopurinol #Colovesicular fistula s/p cystectomy and diverting loop ileostomy s/p reversal ileostomy ? Continue management as per general surgeon Thank you for allowing us to be part of the patient's care. Internal medicine team. Disposition: Consulted for TIAN and NAGMA, continue sodium bicarb tablets and started IV rocephin for UTI, pending U Cx. Diet: Regular GI prophylaxis: protonix DVT prophylaxis: Code: Full code Case disclosed with Attending Dr. Jace Hussein PGY1
[2024-06-29] MEDS: cefTRIAXone 1,000 MG in SODIUM CHLORIDE 0.9% (Popper) 50 ML 100 MG IV ×2 (09:38→09:49)
--- NOTE | 2024-06-29 13:26 | PC.SS ---
Rounding: Pending UA cultures, pt on IV ABX
--- NOTE | 2024-06-29 15:53 | PC.NURSE ---
Just got back from lunch patient came out to ambulate in hallway with . I kindly asked her to go back into room and wait for me to call the doctor for a stronger pain medication. Patient is in extreme pain. She wobbled and for her safety I educated her to stay in bed till I get new pain orders. Patient turned around and called me inappropriate words quietly and mumbling. Im calling Dr. Crouch for new orders. I will continue to monitor patient.
--- NOTE | 2024-06-29 16:13 | PC.NURSE ---
New pain orders in place for patient and colace for bowel movement. Will continue to monitor patient.
[2024-06-29] MEDS: oxyCODONE HCL 5 MG IR TAB 10 MG PO ×2 (16:18→21:37)
[2024-06-29] MEDS: DOCUSATE SOD 100 MG CAPSULE PO (16:19)
--- NOTE | 2024-06-29 16:22 | PC.NURSE ---
Educated patient on new pain orders and gave her colace for bowel movement. Will continue to monitor patient.
[2024-06-29] MEDS: CLOTRIMAZOLE CR 1% 30 GM TUBE TOP (21:25)
[2024-06-30] VITALS: BP 98/62; PULSE 104; RESP 19; TEMP 36.4; O2SAT 94
[2024-06-30] MEDS: oxyCODONE HCL 5 MG IR TAB 10 MG PO ×4 (02:27→15:53)
[2024-06-30 03:39] VITALS: PULSE 89; RESP 18; RESP 99
[2024-06-30 04:00] VITALS: BP 102/73; PULSE 97; RESP 17; TEMP 36.3; O2SAT 95
[2024-06-30 05:21] LABS: Basophils % (Auto) 0 % (0-2.5); Eosinophils # (Auto) 0.1 Thou/mm3 (0.0-0.5); Eosinophils % (Auto) 1 % (0-10); Immature Granulocytes % (Auto) 1 % (0-0); Immature Granulocytes Auto 0.08 Thou/mm3 (0.00-0.00); Lymphocytes # (Auto) 1.4 Thou/mm3 (1.0-4.8); Lymphocytes % (Auto) 10 % (10-50); Mean Corpuscular HGB Conc 30.4 g/dl (31.0-37.0); Mean Corpuscular Hemoglobin 27.9 pg (25.0-35.0); Mean Corpuscular Volume 92 fL (80-100); Monocytes # (Auto) 0.9 Thou/mm3 (0.0-0.8); Monocytes % (Auto) 7 % (0-12); Neutrophils # (Auto) 10.5 Thou/mm3 (1.8-7.7); Neutrophils % (Auto) 81 % (37-80); Nucleated Red Blood Cell % 0 /100 WBC (0); Platelet Count 237 Thou/mm3 (140-440); RDW Standard Deviation 56.6 fL (36.4-46.3); Red Blood Count 2.72 Miln/mm3 (4.00-5.20)
[2024-06-30 05:36] LABS: Hemoglobin 7.6 g/dL (12.0-16.0)
[2024-06-30 05:52] LABS: Anion Gap 11 (7-16); BUN/Creatinine Ratio 15 Ratio (12-20); Blood Urea Nitrogen 22 mg/dL (9-23); Calcium 9.3 mg/dL (8.3-10.6); Chloride 115 mMol/L (98-107); Creatinine (Component) 1.5 mg/dL (0.6-1.3); Estimated Creatinine Clearance 40.7 mL/min (>60); Glucose 95 mg/dL (74-106); Magnesium 1.6 mg/dL (1.6-2.6); Osmolality,Calculated 286 (275-295); Phosphorous 4.1 mg/dL (2.4-5.1); Potassium 3.7 mMol/L (3.4-5.1); Sodium 142 mMol/L (136-145); eGFR 40 See Note
[2024-06-30] MEDS: HEPARIN SOD INJ 5000 UNIT/ML VIAL SC (06:38)
[2024-06-30 07:24] VITALS: PULSE 82; RESP 20; RESP 97
[2024-06-30 08:00] VITALS: BP 92/60; PULSE 93; RESP 16; TEMP 37.2; O2SAT 93
[2024-06-30] MEDS: allopurinoL 100 MG TABLET 300 MG PO (09:41)
[2024-06-30] MEDS: PANTOPRAZOLE 40 MG TABLET PO (09:41)
[2024-06-30] MEDS: DOCUSATE SOD 100 MG CAPSULE PO (09:42)
[2024-06-30] MEDS: SODIUM BICARBONATE 650 MG TABLET 325 MG PO (09:42)
[2024-06-30] MEDS: cefTRIAXone 1,000 MG in SODIUM CHLORIDE 0.9% (Popper) 50 ML 100 MG IV (09:43)
--- NOTE | 2024-06-30 11:54 | PD.SURPROG ---
Documentation for date of: 06/30/24 Subjective Subjective Narrative: Pain well-controlled, no nausea, tolerating regular diet and had a bowel movement yesterday, vitals remaining normal, overall feeling very well and feeling ready to go home Exam Vital Signs Temp Pulse Resp BP Pulse Ox O2 Del Method O2 Flow Rate 98.9 F 93 16 92/60 93 L Room Air 2 06/30/24 08:00 06/30/24 08:00 06/30/24 08:00 06/30/24 08:00 06/30/24 08:00 06/30/24 08:00 06/27/24 20:00 Constitutional Constitutional: no acute distress Routine Respiratory Exam Respiratory: Present no resp distress Routine Abdominal Exam Abdominal: Present soft and wound (Right lower quadrant wound with no surrounding erythema, no fluctuance or tenderness); Absent tenderness or distended Results Results: Laboratory Laboratory results: results reviewed Assessment & Plan Plan 59F who presented for scheduled loop ileostomy reversal 06/27 after colectomy for colovesicular fistula, recovering well overall now with return of bowel function. Slight leukocytosis is noted, however patient reports feeling very well and has no signs or symptoms of infection, so no further workup is warranted at this time DC today Appreciate IM recs Procedures Procedures Reversal of ileostomy
--- NOTE | 2024-06-30 11:57 | ESDS_ITS ---
Planned Discharge Date 06/30/24 DS: Providers Provider Date of admission: 06/27/24 05:40 Primary care physician: Herrera Chan MD Admitting Provider: Emeli Crouch MD Attending Provider on Admission: Valentina Mccormick MD Consults: 06/27/24 10:51 Consult to Adult Hospitalist Routine Comment: TIAN/low bicarb Consulting Provider: Valentina Mccormick 06/27/24 11:43 Consult to Adult Hospitalist Routine Comment: TIAN/low bicarb Consulting Provider: Valentina Mccormick Attending Provider on DC: Emeli Crouch MD Discharging Provider: Emeli Crouch MD Diagnosis Discharge Diagnosis (1) Status post reversal of ileostomy: Status: Acute Problem List Completed Was Problem List Reviewed/Reconciled?: Yes Hospital Course Patient has a history of colovesicular fistula for which she underwent resection with a diverting loop ileostomy last year. Pt presented 06/27 for planned ileostomy reversal which proceeded without complication and she has recovered well with return of bowel function, pain controlled and no signs of infetion now appropriate for discharge home Exam Vital Signs Temp Pulse Resp BP Pulse Ox O2 Del Method O2 Flow Rate 98.9 F 93 16 92/60 93 L Room Air 2 06/30/24 08:00 06/30/24 08:00 06/30/24 08:00 06/30/24 08:00 06/30/24 08:00 06/30/24 08:00 06/27/24 20:00 Constitutional Constitutional: no acute distress Routine Respiratory Exam Respiratory: Present no resp distress Routine Abdominal Exam Abdominal: Present soft and wound (Right lower quadrant wound clean dry intact with no erythema or fluctuance); Absent tenderness or distended Discharge Plan Plan Patient Disposition: HOME (Self Care) Prescriptions/Referrals Prescriptions/Med Rec: New sodium bicarbonate 325 mg tablet 325 mg PO BID Qty: 10 0RF Rx Instructions: take twice a day for 5 more days oxycodone 5 mg tablet 5 mg PO Q6H MDD 8 tabs PRN (Reason: pain) Qty: 60 0RF Rx Instructions: Take 1-2 tablets as needed every 6 hours for moderate to severe pain No Action pantoprazole 40 mg tablet,delayed release (DR/EC) 40 mg PO DAILY allopurinol 300 mg tablet 300 mg PO DAILY Referrals: Herrera Chan MD [Primary Care Provider] - Emeli Crouch MD [Physician] - (You will receive a phone call to confirm a follow-up appointment with me on July 09) Patient/Caregiver Discharge Instructions Other Discharge Activity Instructions:: Avoid lifting objects greater than 10 pounds for 6 weeks It is okay to shower and cleanse the wound with water and plain soap. Pat dry after showering Avoid bathing or swimming until the skin is fully closed If you develop worsening pain, nausea/vomiting, fever or any concerns about the wound please feel free to call the office if during business hours or seek care in ER You may take oxycodone 1-2 tabs as needed every 6 hours for moderate to severe pain You may also take Tylenol in between doses of oxycodone as needed for moderate pain Please note that you should take a maximum of 4 g of Tylenol in any given 24- hour period, so that if you take 1g (500mg x2) for each dose you should take no more than every 6 hours Education Materials: [facility], Discharge Instructions- Eating ... Print Language: Egyptian Stand Alone Forms: Alecia Award Info., Patient Portal Info Letter Discharge Order Discharge Orders: Discharge (Routine); Ordered 06/30/24 Ordered By: Emeli Crouch Results Results: Laboratory Laboratory results: results reviewed Procedures Procedure Date 07/25/24 Procedures Reversal of ileostomy
[2024-06-30 12:00] VITALS: BP 92/65; PULSE 84; RESP 16; TEMP 36.5; O2SAT 93
--- NOTE | 2024-06-30 13:14 | ESPR_ITS ---
<Statement entered by Valentina Mccormick MD - 07/05/24 04:06> I reviewed above note and agree with findings and plans. I have also personally examined the patient with medicine team and went over assessment and plan with medical team including video editing intern and resident physician. <Statement entered by George Ribeiro MD - 06/30/24 15:12> Patient was seen and examined at the bedside. Patient was doing well and was eating her breakfast. Kidney functions mildly improved. Patient runs chronically low blood pressure. White count mildly elevated most likely reactive. Recommended to continue Keflex for 5 more days to complete course of antibiotic for UTI and sodium bicarb tablets for non-anion gap metabolic acidosis/GI losses. Will sign off from the case and discharge as per surgery team. I saw and examined the patient, and I agree with current management stated by Dr Jarred MD,PGY1. Plan of care was discussed with the attending physician and resident physician. Disclaimer: Despite multiple revisions, due to the dictation software being used, the document bellow may not be free of grammatical errors including phonetic/typographic errors. However, this does not deter from our commitment to providing health care in the patient's best interest in mind. Dr. 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 Admitted on 06/27 for reversal of ileostomy. 06/30: Seen and examined at bedside on medical floor. No acute overnight events reported. Other than mild abdominal pain at site of procedure, does not have any complaints. Hemoglobin stable and renal function fluctuating, although non- anion gap metabolic acidosis improving with bicarb tabs which is likely due to bicarb GI loss. From medical standpoint, patient cleared to be discharged. Recommend to continue bicarb tablets for 5 days and to follow-up with PCP to obtain labs and see if nephrology consultation is warranted. Exam Vital Signs Temp Pulse Resp BP Pulse Ox O2 Del Method O2 Flow Rate 97.7 F 84 16 92/65 93 L Room Air 2 06/30/24 12:00 06/30/24 12:00 06/30/24 12:00 06/30/24 12:00 06/30/24 12:00 06/30/24 12:00 06/27/24 20:00 Narrative Exam General: AOx3, no acute distress, able to speak full sentences HEENT: NC/AT, mucous membranes moist, bilateral sclera anicteric Cardiovascular: regular rate and rhythm, S1/S2 present, no murmurs appreciated Pulmonary: clear to auscultation bilaterally, no rales/rhonchi/wheezes Abdominal: Soft, tender near incision site, no palpable masses, peristalsis present, no guarding or rebound Musculoskeletal: normal ROM, no peripheral edema Skin: warm and dry, intact, no rashes Neuro: CN II-XII intact, no focal deficits Objective Labs 06/30/24 04:37 06/30/24 04:37 Labs: Laboratory Results - last 24 hr 06/30/24 04:37 WBC 13.0 H D RBC 2.72 L Hgb 7.6 L Hct 25.0 L MCV 92 MCH 27.9 MCHC 30.4 L RDW Std Deviation 56.6 H Plt Count 237 D Neut % (Auto) 81 H Lymph % (Auto) 10 [place] % (Auto) 7 Eos % (Auto) 1 Baso % (Auto) 0 Neut # (Auto) 10.5 H Lymph # (Auto) 1.4 [place] # (Auto) 0.9 H Eos # (Auto) 0.1 Baso # (Auto) 0.0 Immature Gran # (Auto) 0.08 H Absolute Nucleated RBC 0.00 Immature Gran % 1 H Nucleated RBC % 0 Sodium 142 Potassium 3.7 Chloride 115 H Carbon Dioxide 16.0 L Anion Gap 11 BUN 22 Creatinine 1.5 H Estim Creat Clear Calc 40.7 L eGFR 40 L BUN/Creatinine Ratio 15 Glucose 95 Calculated Osmolality 286 Calcium 9.3 Phosphorus 4.1 Magnesium 1.6 Quality Measures Quality Measures VTE prophylaxis Assessment & Plan Assessment Current Active Medications: Generic Name Dose Route Start Last Admin Trade Name Freq PRN Reason Stop Dose Admin Acetaminophen 650 mg 06/29/24 08:59 Acetaminophen 325 Mg Tablet PO 07/29/24 08:58 Q6H PRN PAIN SCALE 1-3 (mild Allopurinol 300 mg 06/28/24 09:00 06/30/24 09:41 Allopurinol 100 Mg Tablet PO 07/28/24 08:59 300 mg DAILY CORONA Administration Clotrimazole 0 gm 06/29/24 21:00 06/29/24 21:25 Clotrimazole Cr 1% 30 Gm Tube TOP 07/29/24 20:59 1 applicatio HS CORONA Administration Docusate Sodium 100 mg 06/29/24 16:15 06/30/24 09:42 Docusate Sod 100 Mg Capsule PO 07/29/24 16:14 100 mg QDAY CORONA Administration Protocol Heparin Sodium (Porcine) 5,000 unit 06/28/24 14:00 06/30/24 06:38 Heparin Sod Inj 5000 Unit/Ml Vial SC 07/12/24 13:59 5,000 unit Q8HR CORONA Administration Ceftriaxone Sodium 1,000 mg/ 50 mls @ 100 mls/hr 06/29/24 07:55 06/30/24 09:43 Sodium Chloride IV 07/06/24 07:54 100 mls/hr QDAY CORONA Administration Lidocaine 1 patch 06/28/24 09:01 06/28/24 12:51 Lidocaine 5% 1 Patch TOP 07/28/24 09:00 1 patch DAILY PRN Administration LOCALIZED PAIN Morphine Sulfate 4 mg 06/29/24 16:09 06/29/24 19:35 Morphine Sulf Inj 10 Mg/Ml Vial IVP 07/04/24 16:08 4 mg Q6HR PRN Administration BREAKTHROUGH PAIN Ondansetron HCl 4 mg 06/27/24 11:43 Ondansetron Inj 2 Mg/Ml Inj 2 Ml IV 07/27/24 11:42 Q6HR PRN NAUSEA OR VOMITING Protocol Oxycodone HCl 10 mg 06/29/24 16:11 06/30/24 11:05 Oxycodone Hcl 5 Mg Ir Tab PO 07/04/24 16:03 10 mg Q4HR PRN Administration PAIN SCALE 4-10(Mod-Sev Pantoprazole Sodium 40 mg 06/28/24 09:00 06/30/24 09:41 Pantoprazole 40 Mg Tablet PO 07/28/24 08:59 40 mg DAILY CORONA Administration Sodium Bicarbonate 325 mg 06/28/24 11:45 06/30/24 09:42 Sodium Bicarbonate 650 Mg Tablet PO 07/28/24 11:44 325 mg BID CORONA Administration Plan Joslyn Miller 59-y/o F PMHx 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 Admitted on 06/27 for reversal of ileostomy. #Acute kidney injury #Hyperchloremic/non-anion gap metabolic acidosis Creatinine 1.7 on admission, improving to 1.5. HCO3 12.3 and improving to 16. Cleared for discharge from medical standpoint. ? Recommend sending bicarb tablets for 5 days upon discharge ? Recommend following with PCP and obtaining labs to see if nephrology consult patient is warranted #Non-anion gap metabolic acidosis Likely secondary to GI losses from GI procedure #UTI #Dysuria UA positive for bacteriuria ? Recommend DC with cephalexin 250 mg PO QID #Normocytic, normochromic anemia ? Recommend iron studies to rule out iron deficiency anemia ? Transfuse if hemoglobin less than 7 #History of gout ? Recommend continuing home allopurinol #Colovesicular fistula status post cystectomy and diverting loop ileostomy status post reversal ? Continue management per general surgery ----- Plan discussed with attending physician Irineo Stern MD PGY-1 Internal Medicine
[2024-06-30] MEDS: ACETAMINOPHEN 325 MG TABLET 650 MG PO (13:15)
== END 2024-06-30 16:19 | disposition home or self-care (01) | DRG 330 ==
LOC: S2W1 10:07 → S3SX 10:52
PROVIDERS: Anesthesiology; Admitting Provider Surgery; PCP Family Medicine; Visit Provider Internal Medicine
PROC: 0DBB0ZZ Excision of Ileum, Open Approach (ICD-10-PCS; CPT 49000; principal; 2024-06-27 07:30)
DX: Z43.2 Encounter for attention to ileostomy (principal); E87.20 Acidosis, unspecified; N17.9 Acute kidney failure, unspecified; N39.0 Urinary tract infection, site not specified; M10.9 Gout, unspecified; L29.9 Pruritus, unspecified; I10 Essential (primary) hypertension; E86.0 Dehydration; E87.8 Other disorders of electrolyte and fluid balance, not elsewhere classified; D64.9 Anemia, unspecified; R21 Rash and other nonspecific skin eruption; I95.9 Hypotension, unspecified; Z87.891 Personal history of nicotine dependence; Z98.84 Bariatric surgery status; Z90.710 Acquired absence of both cervix and uterus
CPT/HCPCS: 36415; 80048; 80053; 80069; 81001; 82043; 82436; 82570; 83735; 84100; 84133; 84156; 84300; 85025; 85610; 85730; 87081; 87086; A4217; A4649; J0131; J0694; J0696; J1100; J1643; J2270; J2371; J2405; J2704; J3010; J3490; J7030; J7040; J7050; J7120; A9270

== ENCOUNTER 2024-07-09 10:48 | Outpatient (AMB) | payer OTHER, SELFPAY ==
--- NOTE | 2024-07-09 11:15 | PD.GSCLVISIT ---
Vital Signs - [facility] 07/09/24 11:31 Height 1.6 m Height Method Stated Weight 75.296 kg Weight Measurement Method Standing Scale BMI 29.4 BP 106/71 Blood Pressure Source Automatic Cuff Blood Pressure Location Left Upper Arm Position Sitting Respiration 18 Pulse 88 Pulse Source Monitor Temp 97.8 F Temp Source Temporal Artery Scan Pulse Oximetry (%) 98 Oxygen Delivery Method Room Air Med/Allergies Allergies & Medications Allergies Sulfa (Sulfonamide Antibiotics) Allergy (Verified 07/09/24 11:32) HIVES Medication Reconciliation allopurinol 300 mg tablet 300 mg PO DAILY Gout 06/26/24 [History Confirmed 07/09/24] pantoprazole 40 mg tablet,delayed release 40 mg PO DAILY Stomach issues 06/26/24 [History Confirmed 07/09/24] oxycodone 5 mg tablet 5 mg PO Q6H PRN pain #60 tabs 06/30/24 [Rx Confirmed 07/09/24] sodium bicarbonate 325 mg tablet 325 mg PO BID low bicarb #10 tabs 06/30/24 [Rx Confirmed 07/09/24] tramadol 50 mg tablet 50 mg PO Q6H PRN pain #60 tabs 07/09/24 [Rx] MA Intake Visit Data Collection New Patient or Established: Established Patient (seen at [facility] within 3 years) Seen by Clinical Staff ONLY (RN/MA): No Reason for Visit:: FOLLOW UP Pain Present Currently: No Blood Splatter Analyst Required: No PCP or OBGYN visit in last 3 months: Yes Hx Now: No Do You Feel Safe at Home: Yes Authorities Contacted: N/A Smoking Status Smoking Status: Former smoker Immunization / Flu Flu Vaccine in the Last 12 Months: No Flu Vaccine Exclusion Criteria: No Exclusion Criteria Past Medical History Past Medical History NEUROLOGIC: Negative Neurological Disorders or Seizures CARDIAC: Negative Cardiac Disorders, Congestive Heart Failure or Hypotension RESPIRATORY: Negative Chronic Obstructive Pulmonary Disease (COPD) GASTROINTESTINAL: Positive Gastrointestinal Disorders and Diverticulitis; Negative Hepatitis GENITOURINARY: Positive Genitourinary Disorders, Renal Disease and Kidney Stones REPRODUCTIVE: Positive Previous Pregnancies (2) MUSCULOSKELETAL: Positive Arthritis and Gout ENDOCRINE: Negative Endocrine Disorders, Diabetes Mellitus Type 1 or Diabetes Mellitus Type 2 HEMATOLOGIC: Positive Blood Disorders and Anemia PSYCHO/SOCIAL: Positive Anxiety OTHER HISTORY: Positive Hospitalization (surgery, ICU admission x2 recently) and Chicken Pox; Negative Autoimmune Disease, Shingles, Blood Transfusions, Blood Transfusion Reaction, Anesthesia Reactions or Cancer Family History FAMILY HISTORY: Positive Family Cancer and Family Surgery; Negative Family Psychiatric Problems, Family Respiratory Disorders, Family Cardiac Disorders, Family Gastrointestinal Problems or Family Anesthesia Reaction Surgical History SURGICAL: Positive Tonsillectomy, Abdominal Surgery, Gastric Bypass Surgery, Bowel Surgery (colon resection, with complications to bladder, has ileostomy), Hysterectomy and Section (2) Social History SMOKING STATUS: Smoking status: Former smoker ALCOHOL: Alcohol Intake: Former HOUSING: Housing: House LIVES WITH: Lives With: Spouse HPI HPI Narrative 59F who presented for scheduled loop ileostomy reversal 06/27 after colectomy for colovesicular fistula, discharged on POD 3 here for planned follow up. Pt reports she has ongoing pain at her ileostomy site, but she also is having severe perianal pain which is excruciating and makes her fearful of having BMs. She states her BMs are loose, she drinks about 64oz of water daily but does not take fiber and has not tried sitz baths as I had advised her to avoid bathing after surgery. She is taking oxycodone a few times a day, mostly at night. Pt reports she does have occasional nausea but relates it to choledocholithiasis which she had been diagnosed with in [place] at [facility] Review of Systems Systems Reviewed: All systems reviewed, normal except as documented Objective/Exam General General Appearance: alert, cooperative and well groomed Resp Respiratory exam: Absent respiratory distress Abdominal Abdominal exam: Present soft and scar (RLQ wound healing with no erythema, no fluctuance or tenderness; there is some induration around the incision but no sign of hernia); Absent distention or tenderness Assessment & Plan Diagnosis / Problem List (1) Status post reversal of ileostomy: Status: Acute Assessment & Plan: 59F who presented for scheduled loop ileostomy reversal 06/27 after colectomy for colovesicular fistula, gradually recovering (2) Anal fissure: Status: Acute Assessment & Plan: 59F who presented for scheduled loop ileostomy reversal 06/27 after colectomy for colovesicular fistula, with a recurrence of anal fissure for which pt had been treated by Dr Mcelroy last year. Pt states she still has compound cream, has not been using it as she was not aware it can be placed inside the anal canal. I provided her with written instructions for application of the compound cream and also recommended she initiate sitz baths up to TID. All questions were answered and pt expressed understanding Plan: Follow up in 4 weeks Office Procedures GNS Level of Care Nursing/Assessment Patient Status: Established Patient Nursing Assessment/Reassesment: Medication Reconciliation, Update PMH in EMR and Vital Signs Coordination of Care: Complex Care and Chronic Disease 1-5, Consent,records obtained, informed consent, Education Simp Pt/Fam, Results/Orders obtained and Staff clarify orders Established Patient Charge Established Patient Point Assignment: 90 Established Patient Point Charge: EP Level 3 (80-115) Patient Portal Questionaires Social History Living Situation History Housing: House Tobacco History Smoking Status: Former smoker Alcohol History Alcohol Intake: Former Domestic Abuse History Do You Feel Safe at Home: Yes Review of Systems Report any current symptoms Only answer those that you have currently: Past Medical History Past Medical History Have you ever been diagnosed with any of the following: Neurological Problems Seizures: No Cardiology Problems Congestive Heart Failure: No Hypotension: No Respiratory Problems Chronic Obstructive Pulmonary Disease (COPD): No Stomache/Intestinal Problems Hepatitis: No Diverticulitis: Yes Genital/Urinary Problems Renal Disease: Yes Kidney Stones: Yes Reproductive Problems Previous Pregnancies: Yes (2) Musculoskeletal Problems Arthritis: Yes Gout: Yes Endocrine Problems Diabetes Mellitus Type 1: No Diabetes Mellitus Type 2: No Blood Problems Anemia: Yes Psychologic Problems Anxiety: Yes Other Problems Hospitalization: Yes (surgery, ICU admission x2 recently) Autoimmune Disease: No Shingles: No Blood Transfusions: No Blood Transfusion Reaction: No Anesthesia Reactions: No Chicken Pox: Yes Cancer: No Surgical History Hysterectomy: Yes
[2024-07-09 11:31] VITALS: BP 106/71; PULSE 88; RESP 18; TEMP 36.6; O2SAT 98; BMI 29.4
== END 2024-07-09 11:37 | disposition home or self-care (01) ==
LOC: HODSRG 10:48
PROVIDERS: PCP Family Medicine; Referring Provider Family Medicine; Supervising Provider Surgery; Visit Provider Surgery
DX: K60.2 Anal fissure, unspecified (principal); Z98.890 Other specified postprocedural states
CPT/HCPCS: 99213; G0463

== ENCOUNTER 2024-07-19 09:25 | Outpatient (AMB) | payer OTHER, SELFPAY ==
[2024-07-19 09:35] VITALS: BP 112/74; PULSE 76; RESP 18; TEMP 36.6; O2SAT 98; BMI 29.0
--- NOTE | 2024-07-19 09:35 | PD.GSCLVISIT ---
Vital Signs - [facility] 07/19/24 09:35 Height 1.6 m Height Method Stated Weight 74.474 kg Weight Measurement Method Standing Scale BMI 29.0 BP 112/74 Blood Pressure Source Automatic Cuff Blood Pressure Location Left Upper Arm Position Sitting Respiration 18 Pulse 76 Pulse Source Monitor Temp 97.8 F Temp Source Temporal Artery Scan Pulse Oximetry (%) 98 Oxygen Delivery Method Room Air Med/Allergies Allergies & Medications Allergies Sulfa (Sulfonamide Antibiotics) Allergy (Verified 07/19/24 09:36) HIVES Medication Reconciliation allopurinol 300 mg tablet 300 mg PO DAILY Gout 06/26/24 [History Confirmed 07/19/24] pantoprazole 40 mg tablet,delayed release 40 mg PO DAILY Stomach issues 06/26/24 [History Confirmed 07/19/24] oxycodone 5 mg tablet 5 mg PO Q6H PRN pain #60 tabs 06/30/24 [Rx Confirmed 07/19/24] sodium bicarbonate 325 mg tablet 325 mg PO BID low bicarb #10 tabs 06/30/24 [Rx Confirmed 07/19/24] tramadol 50 mg tablet 50 mg PO Q6H PRN pain #60 tabs 07/09/24 [Rx Confirmed 07/19/24] oxycodone 5 mg tablet 5 mg PO Q6H PRN pain #30 tabs 07/19/24 [Rx] MA Intake Visit Data Collection New Patient or Established: Established Patient (seen at [facility] within 3 years) Seen by Clinical Staff ONLY (RN/MA): No Reason for Visit:: PAIN FOLLOW UP Pain Present Currently: Yes (ON AND OFF) Pain Location: Unable to identify Pain scale:: 3 Food And Nutrition Professor Required: No PCP or OBGYN visit in last 3 months: Yes Hx Now: No Do You Feel Safe at Home: Yes Authorities Contacted: N/A Smoking Status Smoking Status: Former smoker Immunization / Flu Flu Vaccine in the Last 12 Months: No Flu Vaccine Exclusion Criteria: No Exclusion Criteria Past Medical History Past Medical History NEUROLOGIC: Negative Neurological Disorders or Seizures CARDIAC: Negative Cardiac Disorders, Congestive Heart Failure or Hypotension RESPIRATORY: Negative Chronic Obstructive Pulmonary Disease (COPD) GASTROINTESTINAL: Positive Gastrointestinal Disorders and Diverticulitis; Negative Hepatitis GENITOURINARY: Positive Genitourinary Disorders, Renal Disease and Kidney Stones REPRODUCTIVE: Positive Previous Pregnancies (2) MUSCULOSKELETAL: Positive Arthritis and Gout ENDOCRINE: Negative Endocrine Disorders, Diabetes Mellitus Type 1 or Diabetes Mellitus Type 2 HEMATOLOGIC: Positive Blood Disorders and Anemia PSYCHO/SOCIAL: Positive Anxiety OTHER HISTORY: Positive Hospitalization (surgery, ICU admission x2 recently) and Chicken Pox; Negative Autoimmune Disease, Shingles, Blood Transfusions, Blood Transfusion Reaction, Anesthesia Reactions or Cancer Family History FAMILY HISTORY: Positive Family Cancer and Family Surgery; Negative Family Psychiatric Problems, Family Respiratory Disorders, Family Cardiac Disorders, Family Gastrointestinal Problems or Family Anesthesia Reaction Surgical History SURGICAL: Positive Tonsillectomy, Abdominal Surgery, Gastric Bypass Surgery, Bowel Surgery (colon resection, with complications to bladder, has ileostomy), Hysterectomy and Section (2) Social History SMOKING STATUS: Smoking status: Former smoker ALCOHOL: Alcohol Intake: Former HOUSING: Housing: House LIVES WITH: Lives With: Spouse HPI HPI Narrative 59F who presented for scheduled loop ileostomy reversal 06/27 after colectomy for colovesicular fistula, discharged on POD 3 here for another follow up. At last visit I prescribed tramadol and pt feels it is minimally helpful, stating she still has bothersome pain near the incision site as well as severe perianal pain. She feels the area around the incision becomes firm and hurts more with certain movements, but she denies any episodes of nausea/vomiting. Her BMs remain somewhat loose, and she is using the compound cream as well as sitz baths but has not added epsom salt ROS Review of Systems Systems Reviewed: All systems reviewed, normal except as documented Objective/Exam General General Appearance: alert, cooperative and well groomed Resp Respiratory exam: Absent respiratory distress Abdominal Abdominal exam: Present soft and hernia (hernia at superior aspect of midline incision; RLQ incision is healing with area of induration superiorly but no obvious hernia, no erythema or fluctuance) Rectal Rectal exam: Present other (posterior midline perianal fissure with associated sentinel pile which is tender; external hemorrhoid at right anterior anus) Assessment & Plan Diagnosis / Problem List (1) Anal fissure: Status: Acute Assessment & Plan: 59F who presented for scheduled loop ileostomy reversal 06/27 after colectomy for colovesicular fistula, discharged on POD 3 here for planned follow up, with ongoing abdominal and perianal pain. We discussed the risks/benefits of narcotics which can be constipating, however pt feels strongly she needs this kind of pain relief for now. As she is unable to take NSAIDs there are unfortunately no other options. I encouraged pt to continue healthy water intake for a goal of 2L per day and to add epsom salt to her sitz baths. I also offered botox injection to assist in wound healing and explained benefits/risks including fissure persistence/recurrence. Pt expressed understanding and would like to proceed Plan: EUA, injection of botox into anal sphincters pending insurance authorization Oxycodone PRN Office Procedures GNS Level of Care Nursing/Assessment Patient Status: Established Patient Nursing Assessment/Reassesment: Medication Reconciliation, Update PMH in EMR and Vital Signs Coordination of Care: Complex Care and Chronic Disease 1-5, Consent,records obtained, informed consent, Education Simp Pt/Fam, Results/Orders obtained and Staff clarify orders Established Patient Charge Established Patient Point Assignment: 90 Established Patient Point Charge: EP Level 3 (80-115) Patient Portal Questionaires Social History Living Situation History Housing: House Tobacco History Smoking Status: Former smoker Alcohol History Alcohol Intake: Former Domestic Abuse History Do You Feel Safe at Home: Yes Review of Systems Report any current symptoms Only answer those that you have currently: Past Medical History Past Medical History Have you ever been diagnosed with any of the following: Neurological Problems Seizures: No Cardiology Problems Congestive Heart Failure: No Hypotension: No Respiratory Problems Chronic Obstructive Pulmonary Disease (COPD): No Stomache/Intestinal Problems Hepatitis: No Diverticulitis: Yes Genital/Urinary Problems Renal Disease: Yes Kidney Stones: Yes Reproductive Problems Previous Pregnancies: Yes (2) Musculoskeletal Problems Arthritis: Yes Gout: Yes Endocrine Problems Diabetes Mellitus Type 1: No Diabetes Mellitus Type 2: No Blood Problems Anemia: Yes Psychologic Problems Anxiety: Yes Other Problems Hospitalization: Yes (surgery, ICU admission x2 recently) Autoimmune Disease: No Shingles: No Blood Transfusions: No Blood Transfusion Reaction: No Anesthesia Reactions: No Chicken Pox: Yes Cancer: No Surgical History Hysterectomy: Yes
== END 2024-07-19 09:57 | disposition home or self-care (01) ==
LOC: HODSRG 09:25
PROVIDERS: PCP Family Medicine; Referring Provider Family Medicine; Supervising Provider Surgery; Visit Provider Surgery
DX: K60.2 Anal fissure, unspecified (principal)
CPT/HCPCS: 99213; G0463

== ENCOUNTER 2024-07-25 07:25 | Day surgery (SDC) | payer OTHER, SELFPAY ==
[2024-07-24 13:33] VITALS: BMI 28.8
[2024-07-24 14:26] LABS: Basophils % (Auto) 1 % (0-2.5); Eosinophils # (Auto) 0.3 Thou/mm3 (0.0-0.5); Eosinophils % (Auto) 4 % (0-10); Hematocrit 26.6 % (36.0-46.0); Immature Granulocytes % (Auto) 0 % (0-0); Immature Granulocytes Auto 0.03 Thou/mm3 (0.00-0.00); Lymphocytes # (Auto) 2.2 Thou/mm3 (1.0-4.8); Lymphocytes % (Auto) 30 % (10-50); Mean Corpuscular HGB Conc 30.5 g/dl (31.0-37.0); Mean Corpuscular Hemoglobin 27.5 pg (25.0-35.0); Mean Corpuscular Volume 90 fL (80-100); Monocytes # (Auto) 0.7 Thou/mm3 (0.0-0.8); Monocytes % (Auto) 9 % (0-12); Neutrophils # (Auto) 4.1 Thou/mm3 (1.8-7.7); Neutrophils % (Auto) 56 % (37-80); Nucleated Red Blood Cell % 0 /100 WBC (0); Platelet Count 292 Thou/mm3 (140-440); RDW Standard Deviation 51.4 fL (36.4-46.3); Red Blood Count 2.95 Miln/mm3 (4.00-5.20); White Blood Count 7.4 Thou/mm3 (3.6-11.0)
[2024-07-24 14:36] LABS: Hemoglobin 8.1 g/dL (12.0-16.0)
[2024-07-24 14:38] LABS: Anion Gap 11 (7-16); BUN/Creatinine Ratio 18 Ratio (12-20); Blood Urea Nitrogen 18 mg/dL (9-23); Calcium 9.2 mg/dL (8.3-10.6); Carbon Dioxide 19.9 mMol/L (20.0-31.0); Chloride 111 mMol/L (98-107); Estimated Creatinine Clearance 59.7 mL/min (>60); Glucose 83 mg/dL (74-106); Osmolality,Calculated 284 (275-295); Potassium 4.1 mMol/L (3.4-5.1); Sodium 142 mMol/L (136-145); eGFR > 60 See Note
[2024-07-25] VITALS (9 sets, daily range): BP systolic 96–109; BP diastolic 57–74; PULSE 58–87; RESP 12–20; TEMP 36.4–36.7; O2SAT 96–100; BMI 29.4
[2024-07-25 08:22] LABS: Partial Thromboplastin Time 27.6 Seconds (22.0-36.0); Prothrombin Time 10.6 Seconds (9.0-12.2)
[2024-07-25] MEDS: RINGERS LACTATED 1000 ML 1,000 ML 20 ML IV (08:27)
--- NOTE | 2024-07-25 10:04 | PD.SUROPNT ---
Date of Procedure 07/25/24 Pre Op Diagnosis Posterior and anterior midline anal fissures Post Op Diagnosis Same Procedure Examination under anesthesia, injection of Botox into anal sphincters Findings Posterior and anterior midline anal fissures Procedure Description After discussion of risks and benefits, patient was brought to the operating room and general anesthesia with LMA was induced. Pt was placed in lithotomy position with proper padding. She was prepped and draped in usual sterile fashion. After timeout I performed a BETZAIDA which was normal. I then inspected the anus using a lubricated Yoo retractor and noted posterior and anterior midline anal fissures. The botulinum toxin 100units had been premixed with 2cc of NS and 1cc of that mixture was drawn up. 1/2cc of the botox mixture was injected between the external and internal anal sphincters on both the left and right sides of the anus. 20cc of 0.5% marcaine was then used to perform left and right pudendal nerve blocks. There was no bleeding at the end of the case. Pt was returned to supine position and extubated without complication. She was brought to PACU in stable condition Pathology / specimen None Estimated Blood Loss 10 Surgeon Emeli Crouch MD Surgical Staff Operation Date: 07/25/24 09:30 Case Staff JUKEBOX ROUTE DRIVER: Lorna Bernal
--- NOTE | 2024-07-25 10:05 | SUR.PHASEI ---
pt received from OR in recovery bay 4. pt obtunded, breathing unlabored on oxymask 8l, oral airway in place. v/s stable. pt dressing abd to rectal area cdi. report received from Polina ZAPATA and Lorna MAGUIRE.
--- NOTE | 2024-07-25 10:10 | ESDS_ITS ---
Planned Discharge Date 07/25/24 DS: Providers Provider Primary care physician: Herrera Chan MD Attending Provider on Admission: Emeli Crouch MD Attending Provider on DC: Emeli Crouch MD Discharging Provider: Emeli Crouch MD Diagnosis Discharge Diagnosis (1) Anal fissure: Status: Acute Problem List Completed Was Problem List Reviewed/Reconciled?: Yes Exam Vital Signs Temp Pulse Resp BP Pulse Ox 98.1 F 87 20 109/74 100 07/25/24 08:16 07/25/24 08:16 07/25/24 08:16 07/25/24 08:16 07/25/24 08:16 Discharge Plan Plan Patient Disposition: HOME (Self Care) Prescriptions/Referrals Prescriptions/Med Rec: No Action oxycodone 5 mg tablet 5 mg PO Q6H MDD 6 tabs PRN (Reason: pain) Qty: 30 0RF Rx Instructions: take 1-2 tabs as needed q6h for severe pain allopurinol 300 mg tablet 300 mg PO DAILY Referrals: Herrera Chan MD [Primary Care Provider] - Emeli Crouch MD [Physician] - (You will receive a phone call to confirm a follow-up appt with me in 6 weeks) Patient/Caregiver Discharge Instructions Other Discharge Activity Instructions:: Avoid constipation and diarrhea You may resume sitz baths as needed for pain, bleeding and swelling If you develop worsening pain, fever, or difficulty urinating please seek care in ER Education Materials: Understanding Anal Fissures, Taking a Sitz Bath Print Language: Sinhala Stand Alone Forms: Alecia Award Info., Patient Portal Info Letter Discharge Order Discharge Orders: Discharge (Routine); Ordered 07/25/24 Ordered By: Emeli Crouch Results Results: Laboratory Laboratory results: results reviewed Procedures Procedure Date 07/25/24 Procedures Examination under anesthesia, injection of Botox into anal sphincters
[2024-07-25] MEDS: fentaNYL CIT INJ 50 mCg/ML AMP 2ML 25 MCG IV (11:20)
--- NOTE | 2024-07-25 11:25 | SUR.PHASEII ---
pt able to tolerate oral fluids without difficulty swallowing or nausea/vomiting.
--- NOTE | 2024-07-25 11:30 | SUR.PHASEII ---
pt awake and alert, breathing unlabored on room air. v/s stable. pt dressing to rectal area cdi. pt able to ambulate to wheelchair with steady gait. d/c instructions given with Gary in room, all questions answered. pt d/c via wheelchair with all belongings.
== END 2024-07-25 11:35 | disposition home or self-care (01) ==
PROVIDERS: PCP Family Medicine; Referring Provider Surgery; Visit Provider Surgery
PROC: (CPT 46505; principal; 2024-07-25 09:15)
DX: K60.2 Anal fissure, unspecified (principal)
CPT/HCPCS: 46505; 36415; 80048; 85025; 85610; 85730; A4217; A4649; J0131; J0585; J1100; J2250; J2704; J2765; J3010; J3490; J7120

== ENCOUNTER 2024-08-06 10:12 | Outpatient (AMB) | payer SELFPAY ==
[2024-08-06 10:27] VITALS: BP 116/75; PULSE 76; RESP 19; TEMP 36.3; O2SAT 97; BMI 27.1
--- NOTE | 2024-08-06 10:27 | PD.GSCLVISIT ---
[facility] 08/06/24 10:27 Height 1.6 m Height Method Stated Weight 69.485 kg Weight Measurement Method Standing Scale BMI 27.1 BP 116/75 Blood Pressure Source Automatic Cuff Blood Pressure Location Right Upper Arm Position Sitting Respiration 19 Pulse 76 Pulse Source Monitor Temp 97.4 F Temp Source Temporal Artery Scan Pulse Oximetry (%) 97 Oxygen Delivery Method Room Air Med/Allergies Allergies & Medications Allergies Sulfa (Sulfonamide Antibiotics) Allergy (Verified 08/06/24 10:29) HIVES Medication Reconciliation allopurinol 300 mg tablet 300 mg PO DAILY Gout 06/26/24 [History Confirmed 08/06/24] tramadol 50 mg tablet 50 mg PO Q8H PRN pain #60 tabs 08/06/24 [Rx] MA Intake Visit Data Collection New Patient or Established: Established Patient (seen at [facility] within 3 years) Reason for Visit:: FOLLOW UP -RELEASE BACK TO WORK Pain Present Currently: No Pain scale:: 0 Pain Scale Used: Danielle/Numerical Pest Control Chemical Technician Required: No PCP or OBGYN visit in last 3 months: Yes Do You Feel Safe at Home: Yes Smoking Status Smoking Status: Former smoker Would you like additional Smoking Cessation Counseling?: Yes Immunization / Flu Flu Vaccine in the Last 12 Months: Yes Flu Vaccine Exclusion Criteria: Already Received Past Medical History Past Medical History NEUROLOGIC: Negative Neurological Disorders or Seizures CARDIAC: Negative Cardiac Disorders, Congestive Heart Failure or Hypotension RESPIRATORY: Negative Chronic Obstructive Pulmonary Disease (COPD) GASTROINTESTINAL: Positive Gastrointestinal Disorders and Diverticulitis; Negative Hepatitis GENITOURINARY: Positive Genitourinary Disorders, Renal Disease and Kidney Stones REPRODUCTIVE: Positive Previous Pregnancies (2) MUSCULOSKELETAL: Positive Arthritis and Gout ENDOCRINE: Negative Endocrine Disorders, Diabetes Mellitus Type 1 or Diabetes Mellitus Type 2 HEMATOLOGIC: Positive Blood Disorders and Anemia PSYCHO/SOCIAL: Positive Anxiety OTHER HISTORY: Positive Hospitalization (surgery, ICU admission x2 recently, kidney disease), Blood Transfusions and Chicken Pox; Negative Autoimmune Disease, Shingles, Blood Transfusion Reaction, Anesthesia Reactions or Cancer Family History FAMILY HISTORY: Positive Family Cardiac Disorders, Family Cancer and Family Surgery; Negative Family Psychiatric Problems, Family Respiratory Disorders, Family Gastrointestinal Problems or Family Anesthesia Reaction Surgical History SURGICAL: Positive Tonsillectomy, Abdominal Surgery, Gastric Bypass Surgery, Bowel Surgery (colon resection with ileostomy), Hysterectomy and Section Social History SMOKING STATUS: Smoking status: Former smoker ALCOHOL: Alcohol Intake: Former HOUSING: Housing: House LIVES WITH: Lives With: Spouse HPI HPI Narrative 59F who presented for scheduled loop ileostomy reversal 06/27 after colectomy for colovesicular fistula, course complicated by symptomatic anal fissure now s/p botox injection 07/25 here for planned follow up. Pt reports feeling better overall, she still sometimes has pain at night requiring pain meds but she has not taken any for the past week. She is gradually reintroducing high fiber foods back into her diet, did notice one episode of fecal urgency but feels her BMs are generally manageable. She is feeling ready to return to work this week ROS Review of Systems Systems Reviewed: All systems reviewed, normal except as documented Objective/Exam General General Appearance: alert, cooperative and well groomed Resp Respiratory exam: Absent respiratory distress Assessment & Plan Diagnosis / Problem List (1) Anal fissure: Status: Acute Assessment & Plan: 59F who presented for scheduled loop ileostomy reversal 06/27 after colectomy for colovesicular fistula, course complicated by symptomatic anal fissure now s/p botox injection 07/25, recovering well overall Plan: F/u in 6 weeks Office Procedures GNS Level of Care Nursing/Assessment Patient Status: Established Patient Nursing Assessment/Reassesment: Medication Reconciliation, Update PMH in EMR and Vital Signs Coordination of Care: Complex Care/Chronic Disease 5 or more, Education Complex Pt/Fam, Consent,records obtained, informed consent and Staff clarify orders Established Patient Charge Established Patient Point Assignment: 100 Established Patient Point Charge: EP Level 3 (80-115) Patient Portal Questionaires Social History Living Situation History Housing: House Tobacco History Smoking Status: Former smoker Alcohol History Alcohol Intake: Former Domestic Abuse History Do You Feel Safe at Home: Yes Review of Systems Report any current symptoms Only answer those that you have currently: Past Medical History Past Medical History Have you ever been diagnosed with any of the following: Neurological Problems Seizures: No Cardiology Problems Congestive Heart Failure: No Hypotension: No Respiratory Problems Chronic Obstructive Pulmonary Disease (COPD): No Stomache/Intestinal Problems Hepatitis: No Diverticulitis: Yes Genital/Urinary Problems Renal Disease: Yes Kidney Stones: Yes Reproductive Problems Previous Pregnancies: Yes (2) Musculoskeletal Problems Arthritis: Yes Gout: Yes Endocrine Problems Diabetes Mellitus Type 1: No Diabetes Mellitus Type 2: No Blood Problems Anemia: Yes Psychologic Problems Anxiety: Yes Other Problems Hospitalization: Yes (surgery, ICU admission x2 recently, kidney disease) Autoimmune Disease: No Shingles: No Blood Transfusions: Yes Blood Transfusion Reaction: No Anesthesia Reactions: No Chicken Pox: Yes Cancer: No Surgical History Hysterectomy: Yes
== END 2024-08-06 11:00 | disposition home or self-care (01) ==
LOC: HODSRG 10:12
PROVIDERS: PCP Family Medicine; Referring Provider Family Medicine; Supervising Provider Surgery; Visit Provider Surgery
DX: Z09 Encounter for follow-up examination after completed treatment for conditions other than malignant neoplasm (principal); K60.2 Anal fissure, unspecified
CPT/HCPCS: 99213; G0463

== ENCOUNTER 2024-10-08 11:31 | Outpatient (AMB) | payer OTHER, SELFPAY ==
--- NOTE | 2024-10-08 11:43 | GSCOFFNT_ITS ---
[facility] 10/08/24 11:46 Height 1.6 m Height Method Stated Weight 78.075 kg Weight Measurement Method Standing Scale BMI 30.4 BP 138/85 H Blood Pressure Source Automatic Cuff Blood Pressure Location Left Upper Arm Position Sitting Respiration 18 Pulse 66 Pulse Source Monitor Temp 97.8 F Temp Source Temporal Artery Scan Pulse Oximetry (%) 98 Oxygen Delivery Method Room Air Med/Allergies Allergies & Medications Allergies Sulfa (Sulfonamide Antibiotics) Allergy (Verified 10/08/24 11:46) HIVES Medication Reconciliation allopurinol 300 mg tablet 300 mg PO DAILY Gout 06/26/24 [History Confirmed 10/08/24] tramadol 50 mg tablet 50 mg PO Q8H PRN pain #60 tabs 08/06/24 [Rx Confirmed 10/08/24] MA Intake Visit Data Collection New Patient or Established: Established Patient (seen at [facility] within 3 years) Seen by Clinical Staff ONLY (RN/MA): No Reason for Visit:: BOTOX INJECTION FOLLOW UP Pain Present Currently: No PCP or OBGYN visit in last 3 months: Yes Hx Now: No Do You Feel Safe at Home: Yes Authorities Contacted: N/A Smoking Status Smoking Status: Former smoker Immunization / Flu Flu Vaccine in the Last 12 Months: No Flu Vaccine Exclusion Criteria: No Exclusion Criteria Past Medical History Past Medical History NEUROLOGIC: Negative Neurological Disorders or Seizures CARDIAC: Negative Cardiac Disorders, Congestive Heart Failure or Hypotension RESPIRATORY: Negative Chronic Obstructive Pulmonary Disease (COPD) GASTROINTESTINAL: Positive Gastrointestinal Disorders and Diverticulitis; Negative Hepatitis GENITOURINARY: Positive Genitourinary Disorders, Renal Disease and Kidney Stones REPRODUCTIVE: Positive Previous Pregnancies (2) MUSCULOSKELETAL: Positive Arthritis and Gout ENDOCRINE: Negative Endocrine Disorders, Diabetes Mellitus Type 1 or Diabetes Mellitus Type 2 HEMATOLOGIC: Positive Blood Disorders and Anemia PSYCHO/SOCIAL: Positive Anxiety OTHER HISTORY: Positive Hospitalization (surgery, ICU admission x2 recently, kidney disease), Blood Transfusions and Chicken Pox; Negative Autoimmune Disease, Shingles, Blood Transfusion Reaction, Anesthesia Reactions or Cancer Family History FAMILY HISTORY: Positive Family Cardiac Disorders, Family Cancer and Family Surgery; Negative Family Psychiatric Problems, Family Respiratory Disorders, Family Gastrointestinal Problems or Family Anesthesia Reaction Surgical History SURGICAL: Positive Tonsillectomy, Abdominal Surgery, Gastric Bypass Surgery, Bowel Surgery (colon resection with ileostomy), Hysterectomy and Section Social History SMOKING STATUS: Smoking status: Former smoker ALCOHOL: Alcohol Intake: Former HOUSING: Housing: House LIVES WITH: Lives With: Spouse HPI HPI Narrative 59F who presented for scheduled loop ileostomy reversal 06/27 after colectomy for colovesicular fistula, course complicated by symptomatic anal fissure now s/p botox injection 07/25 here for planned follow up. Pt states she has been having more pain at the site of her midline incisional hernia, sometimes associated with nausea/heaving (she states she does not usually have emesis due to her history of hiatal hernia repair). Aside from that pt is concerned she is eating much more than before and would like to try a medication to curb her appetite. Her perianal pain is improved since the botox injection although she reports having occasional episodes of pain ROS Review of Systems Systems Reviewed: All systems reviewed, normal except as documented Objective/Exam General General Appearance: alert, cooperative and well groomed Resp Respiratory exam: Absent respiratory distress Abdominal Abdominal exam: Present soft and hernia (ventral hernia at site of previous midline scar, no overlying skin changes, mild tenderness) Assessment & Plan Diagnosis / Problem List (1) Incisional hernia: Status: Acute Assessment & Plan: 59F who presented for scheduled loop ileostomy reversal 06/27 after colectomy for colovesicular fistula, course complicated by symptomatic anal fissure now s/p botox injection 07/25 here for planned follow up, now with symptoms from her midline incisional hernia. I explained that the first step is to evaluate with imaging and then based on that will determine the best course for repair. Pt states she will need to wait for surgery as she is unable to miss work anytime soon but she agrees to proceed with CT for now and will follow up when done Orders: Orders CT abdomen pelvis w con Today Office Procedures GNS Level of Care Nursing/Assessment Patient Status: Established Patient Nursing Assessment/Reassesment: Medication Reconciliation, Update PMH in EMR and Vital Signs Coordination of Care: Complex Care and Chronic Disease 1-5, Consent,records obtained, informed consent, Education Simp Pt/Fam, Results/Orders obtained and Staff clarify orders Established Patient Charge Established Patient Point Assignment: 90 Established Patient Point Charge: EP Level 3 (80-115) Patient Portal Questionaires Social History Living Situation History Housing: House Tobacco History Smoking Status: Former smoker Alcohol History Alcohol Intake: Former Domestic Abuse History Do You Feel Safe at Home: Yes Review of Systems Report any current symptoms Only answer those that you have currently: Past Medical History Past Medical History Have you ever been diagnosed with any of the following: Neurological Problems Seizures: No Cardiology Problems Congestive Heart Failure: No Hypotension: No Respiratory Problems Chronic Obstructive Pulmonary Disease (COPD): No Stomache/Intestinal Problems Hepatitis: No Diverticulitis: Yes Genital/Urinary Problems Renal Disease: Yes Kidney Stones: Yes Reproductive Problems Previous Pregnancies: Yes (2) Musculoskeletal Problems Arthritis: Yes Gout: Yes Endocrine Problems Diabetes Mellitus Type 1: No Diabetes Mellitus Type 2: No Blood Problems Anemia: Yes Psychologic Problems Anxiety: Yes Other Problems Hospitalization: Yes (surgery, ICU admission x2 recently, kidney disease) Autoimmune Disease: No Shingles: No Blood Transfusions: Yes Blood Transfusion Reaction: No Anesthesia Reactions: No Chicken Pox: Yes Cancer: No Surgical History Hysterectomy: Yes
[2024-10-08 11:46] VITALS: BP 138/85; PULSE 66; RESP 18; TEMP 36.6; O2SAT 98; BMI 30.4
== END 2024-10-08 11:54 | disposition home or self-care (01) ==
PROVIDERS: PCP Family Medicine; Referring Provider Family Medicine; Supervising Provider Surgery; Visit Provider Surgery
DX: K43.2 Incisional hernia without obstruction or gangrene (principal); Z87.891 Personal history of nicotine dependence
CPT/HCPCS: 99213; G0463

== ENCOUNTER → 2024-11-09 | Outpatient (CLI) | payer OTHER, SELFPAY ==
--- NOTE | 2024-11-09 14:30 | XR_ITS ---
Examination: CT abdomen with intravenous contrast CT pelvis with intravenous contrast 2-D coronal reconstructions 2-D sagittal reconstructions Date and time of exam:November 09, 2024 1504 hours INDICATIONS: Pain and swelling at the incision site post reversal colostomy 8 weeks ago. CTDI: vol (mGy) 29.4 DLP: (mGycm) 1045 Technique: Multiple axial sections of the abdomen and pelvis have been obtained. 64 slice high-resolution scanner used. 3 mm axial sections have been obtained, post intravenous injection 60 cc [id number] 2-D sagittal, coronal reconstructions obtained. Low dose protocols were performed. One or more of the following dose reduction techniques were used; automated exposure control, adjustment of the mA and/or KV according to patient size, use of iterative reconstruction technique. Findings: Gastric sutures No focal liver or splenic lesion Common bile duct is enlarged 12 mm No pancreatic mass No renal or ureteral calculi Left pelvic cystic mass 6.6 cm Umbilical hernia defect 6.6 cm containing small bowel although no definite incarcerated bowel Bowel sutures in the lower right anterior abdomen and sigmoid colon Contracted urinary bladder. Absent uterus Prominent osteopenia IMPRESSION: Enlarged common bile duct, recommend hepatobiliary sonography follow-up Large umbilical hernia containing small bowel although no definite incarcerated bowel
== END | disposition home or self-care (01) ==
LOC: CCTX 14:16
PROVIDERS: PCP Family Medicine; Referring Provider Surgery; Visit Provider Surgery
DX: K83.8 Other specified diseases of biliary tract (principal); K42.9 Umbilical hernia without obstruction or gangrene
CPT/HCPCS: 74177; A4649; Q9967

== ENCOUNTER 2024-11-22 13:33 | Outpatient (AMB) | payer OTHER, SELFPAY ==
[2024-11-22 13:50] VITALS: BP 145/94; PULSE 92; RESP 18; O2SAT 98; BMI 31.8
--- NOTE | 2024-11-22 13:50 | PD.GSCLVISIT ---
[facility]ital Signs - [facility] 11/22/24 13:50 Height 1.6 m Height Method Stated Weight 81.391 kg Weight Measurement Method Standing Scale BMI 31.8 BP 145/94 H Blood Pressure Source Automatic Cuff Blood Pressure Location Right Upper Arm Position Sitting Respiration 18 Pulse 92 Pulse Source Monitor Pulse Oximetry (%) 98 Oxygen Delivery Method Room Air Med/Allergies Allergies & Medications Allergies Sulfa (Sulfonamide Antibiotics) Allergy (Verified 11/22/24 13:51) HIVES Medication Reconciliation allopurinol 300 mg tablet 300 mg PO DAILY Gout 06/26/24 [History Confirmed 11/22/24] tramadol 50 mg tablet 50 mg PO Q8H PRN pain #60 tabs 08/06/24 [Rx Confirmed 11/22/24] lactulose 10 gram/15 mL oral solution (Generlac) 20 g (30 mL) PO BID PRN constipation #3,000 mL 11/22/24 [Rx] MA Intake Visit Data Collection New Patient or Established: Established Patient (seen at [facility] within 3 years) Reason for Visit:: F/U IMAGING RESULTS Pain Present Currently: Yes Pain scale:: 5 Pain Scale Used: Barnett-Pastor/Numerical Bench Assembly Inspector Required: No PCP or OBGYN visit in last 3 months: Yes Hx Now: No Do You Feel Safe at Home: Yes Authorities Contacted: N/A Smoking Status Smoking Status: Former smoker Immunization / Flu Flu Vaccine in the Last 12 Months: Yes Flu Vaccine Exclusion Criteria: Already Received Past Medical History Past Medical History NEUROLOGIC: Negative Neurological Disorders or Seizures CARDIAC: Negative Cardiac Disorders, Congestive Heart Failure or Hypotension RESPIRATORY: Negative Chronic Obstructive Pulmonary Disease (COPD) GASTROINTESTINAL: Positive Gastrointestinal Disorders and Diverticulitis; Negative Hepatitis GENITOURINARY: Positive Genitourinary Disorders, Renal Disease and Kidney Stones REPRODUCTIVE: Positive Previous Pregnancies (2) MUSCULOSKELETAL: Positive Arthritis and Gout ENDOCRINE: Negative Endocrine Disorders, Diabetes Mellitus Type 1 or Diabetes Mellitus Type 2 HEMATOLOGIC: Positive Blood Disorders and Anemia PSYCHO/SOCIAL: Positive Anxiety OTHER HISTORY: Positive Hospitalization (surgery, ICU admission x2 recently, kidney disease), Blood Transfusions and Chicken Pox; Negative Autoimmune Disease, Shingles, Blood Transfusion Reaction, Anesthesia Reactions or Cancer Family History FAMILY HISTORY: Positive Family Cardiac Disorders, Family Cancer and Family Surgery; Negative Family Psychiatric Problems, Family Respiratory Disorders, Family Gastrointestinal Problems or Family Anesthesia Reaction Surgical History SURGICAL: Positive Tonsillectomy, Abdominal Surgery, Gastric Bypass Surgery, Bowel Surgery (colon resection with ileostomy), Hysterectomy and Section Social History SMOKING STATUS: Smoking status: Former smoker ALCOHOL: Alcohol Intake: Former HOUSING: Housing: House LIVES WITH: Lives With: Spouse Travel Risk Travel Hx Recent Travel: No HPI HPI Narrative 59F who presented for scheduled loop ileostomy reversal 06/27 after colectomy for colovesicular fistula, course complicated by symptomatic anal fissure now s/p botox injection 07/25 here for planned follow up. Pt underwent CT AP showing her umbilical hernia defect is 6.6cm. It causes her discomfort and she is bothered by the appearance but because of recent job changes she is unable to take time off anytime soon ROS Review of Systems Systems Reviewed: All systems reviewed, normal except as documented Objective/Exam General General Appearance: alert, cooperative and well groomed Resp Respiratory exam: Absent respiratory distress Abdominal Abdominal exam: Present soft and hernia (incisional hernia with no overlying skin changes, reducible); Absent distention or tenderness Results CT AP report and images reviewed Assessment & Plan Diagnosis / Problem List (1) Incisional hernia: Status: Acute Assessment & Plan: 59F who presented for scheduled loop ileostomy reversal 06/27 after colectomy for colovesicular fistula, course complicated by symptomatic anal fissure now s/p botox injection 07/25 as well as incisional hernia. Pt is interested in having surgery but because of work obligations will need to wait a few months. I informed her of the signs/symptoms of incarceration/strangulation and will follow up as soon as pt is ready for surgery (2) Constipation: Status: Acute Assessment & Plan: Pt states she was prescribed lactulose by Dr Mcelroy, takes only occasionally but finds it very helpful when needed, requested a refill which I will provide Office Procedures S Level of Care Nursing/Assessment Patient Status: Established Patient Nursing Assessment/Reassesment: Medication Reconciliation, Update PMH in EMR and Vital Signs Coordination of Care: Complex Care and Chronic Disease 1-5, Education Complex Pt/Fam, Consent,records obtained, informed consent, Results/Orders obtained and Staff clarify orders Established Patient Charge Established Patient Point Assignment: 95 Established Patient Point Charge: EP Level 3 (80-115) Patient Portal Questionaires Social History Living Situation History Housing: House Tobacco History Smoking Status: Former smoker Alcohol History Alcohol Intake: Former Domestic Abuse History Do You Feel Safe at Home: Yes Review of Systems Report any current symptoms Only answer those that you have currently: Past Medical History Past Medical History Have you ever been diagnosed with any of the following: Neurological Problems Seizures: No Cardiology Problems Congestive Heart Failure: No Hypotension: No Respiratory Problems Chronic Obstructive Pulmonary Disease (COPD): No Stomache/Intestinal Problems Hepatitis: No Diverticulitis: Yes Genital/Urinary Problems Renal Disease: Yes Kidney Stones: Yes Reproductive Problems Previous Pregnancies: Yes (2) Musculoskeletal Problems Arthritis: Yes Gout: Yes Endocrine Problems Diabetes Mellitus Type 1: No Diabetes Mellitus Type 2: No Blood Problems Anemia: Yes Psychologic Problems Anxiety: Yes Other Problems Hospitalization: Yes (surgery, ICU admission x2 recently, kidney disease) Autoimmune Disease: No Shingles: No Blood Transfusions: Yes Blood Transfusion Reaction: No Anesthesia Reactions: No Chicken Pox: Yes Cancer: No Surgical History Hysterectomy: Yes
== END 2024-11-22 14:15 | disposition home or self-care (01) ==
LOC: HODSRG 13:33
PROVIDERS: PCP Family Medicine; Referring Provider Family Medicine; Supervising Provider Surgery; Visit Provider Surgery
DX: K43.2 Incisional hernia without obstruction or gangrene (principal); K59.00 Constipation, unspecified
CPT/HCPCS: 99213; G0463

== ENCOUNTER 2025-01-25 10:08 | Outpatient (AMB) | payer OTHER, SELFPAY ==
--- NOTE | 2025-01-25 10:35 | GSCOFFNT_ITS ---
Med/Allergies Allergies & Medications Allergies Sulfa (Sulfonamide Antibiotics) Allergy (Verified 11/22/24 13:51) HIVES Medication Reconciliation allopurinol 300 mg tablet 300 mg PO DAILY Gout 06/26/24 [History Confirmed 01/25/25] tramadol 50 mg tablet 50 mg PO Q8H PRN pain #60 tabs 08/06/24 [Rx Confirmed 01/25/25] lactulose 10 gram/15 mL oral solution (Generlac) 20 g (30 mL) PO BID PRN constipation #3,000 mL 11/22/24 [Rx Confirmed 01/25/25] MA Intake Visit Data Collection New Patient or Established: Established Patient (seen at [facility] within 3 years) Seen by Clinical Staff ONLY (RN/MA): No Reason for Visit:: FOLLOW UP Pain Present Currently: No Performance Consultant Required: No PCP or OBGYN visit in last 3 months: Yes Hx Now: No Do You Feel Safe at Home: Yes Authorities Contacted: N/A Smoking Status Smoking Status: Former smoker Immunization / Flu Flu Vaccine in the Last 12 Months: No Flu Vaccine Exclusion Criteria: No Exclusion Criteria Past Medical History Past Medical History NEUROLOGIC: Negative Neurological Disorders or Seizures CARDIAC: Negative Cardiac Disorders, Congestive Heart Failure or Hypotension RESPIRATORY: Negative Chronic Obstructive Pulmonary Disease (COPD) GASTROINTESTINAL: Positive Gastrointestinal Disorders and Diverticulitis; Negative Hepatitis GENITOURINARY: Positive Genitourinary Disorders, Renal Disease and Kidney Stones REPRODUCTIVE: Positive Previous Pregnancies (2) MUSCULOSKELETAL: Positive Arthritis and Gout ENDOCRINE: Negative Endocrine Disorders, Diabetes Mellitus Type 1 or Diabetes Mellitus Type 2 HEMATOLOGIC: Positive Blood Disorders and Anemia PSYCHO/SOCIAL: Positive Anxiety OTHER HISTORY: Positive Hospitalization (surgery, ICU admission x2 recently, kidney disease), Blood Transfusions and Chicken Pox; Negative Autoimmune Disease, Shingles, Blood Transfusion Reaction, Anesthesia Reactions or Cancer Family History FAMILY HISTORY: Positive Family Cardiac Disorders, Family Cancer and Family Surgery; Negative Family Psychiatric Problems, Family Respiratory Disorders, Family Gastrointestinal Problems or Family Anesthesia Reaction Surgical History SURGICAL: Positive Tonsillectomy, Abdominal Surgery, Gastric Bypass Surgery, Bowel Surgery (colon resection with ileostomy), Hysterectomy and Section Social History SMOKING STATUS: Smoking status: Former smoker ALCOHOL: Alcohol Intake: Former HOUSING: Housing: House LIVES WITH: Lives With: Spouse Travel Risk Travel Hx Recent Travel: No HPI HPI Narrative HISTORY OF PRESENT ILLNESS Emeli James, have obtained verbal consent from the patient, to be recorded during this encounter which may include, but not limited to, medical history, examination, treatment plans, and relevant health information.? Patient was informed that recording will be read and reviewed by myself before inclusion in the medical chart. The patient is here for a follow-up of incisional hernia hernia. She reports that her hernia condition has worsened, with increased discomfort and a burning sensation, particularly after consuming large meals. The hernia has grown significantly in size, causing her to feel as though she is carrying an additional weight. She expresses readiness for surgical intervention, having previously postponed it due to training commitments. ROS Review of Systems Systems Reviewed: All systems reviewed, normal except as documented Objective/Exam General General Appearance: alert, cooperative and well groomed Resp Respiratory exam: Absent respiratory distress Abdominal Abdominal exam: Present soft and incision (Midline scar with reducible incisional hernia, no overlying skin changes); Absent distention or tenderness Results CTAP reviewed Assessment & Plan Diagnosis / Problem List (1) Incisional hernia: Status: Acute Assessment & Plan: I explained benefits/risks of surgery including infection, bleeding, and hernia recurrence. I reiterated that a mesh is recommended given the size of the hernia to reduce the risk of recurrence, and explained that although there is a risk of infection with any foreign body, ultimately research has shown that the the benefit outweighs this risk. Given the likely large incision that will be necessary, we will plan on an overnight stay for pain management. She was advised to quit smoking as it can impair wound healing and affect blood flow to the wound. She was also encouraged to maintain regular bowel movements to minimize the risk of hernia recurrence. Patient expressed all to proceeding Plan: Plan for incisional hernia repair with mesh February 27 Office Procedures GNS Level of Care Nursing/Assessment Patient Status: Established Patient Nursing Assessment/Reassesment: Medication Reconciliation, Update PMH in EMR and Vital Signs Coordination of Care: Complex Care and Chronic Disease 1-5, Education Complex Pt/Fam, Consent,records obtained, informed consent, Results/Orders obtained and Staff clarify orders Established Patient Charge Established Patient Point Assignment: 95 Established Patient Point Charge: EP Level 3 (80-115) Patient Portal Questionaires Social History Living Situation History Housing: House Tobacco History Smoking Status: Former smoker Alcohol History Alcohol Intake: Former Domestic Abuse History Do You Feel Safe at Home: Yes Review of Systems Report any current symptoms Only answer those that you have currently: Past Medical History Past Medical History Have you ever been diagnosed with any of the following: Neurological Problems Seizures: No Cardiology Problems Congestive Heart Failure: No Hypotension: No Respiratory Problems Chronic Obstructive Pulmonary Disease (COPD): No Stomache/Intestinal Problems Hepatitis: No Diverticulitis: Yes Genital/Urinary Problems Renal Disease: Yes Kidney Stones: Yes Reproductive Problems Previous Pregnancies: Yes (2) Musculoskeletal Problems Arthritis: Yes Gout: Yes Endocrine Problems Diabetes Mellitus Type 1: No Diabetes Mellitus Type 2: No Blood Problems Anemia: Yes Psychologic Problems Anxiety: Yes Other Problems Hospitalization: Yes (surgery, ICU admission x2 recently, kidney disease) Autoimmune Disease: No Shingles: No Blood Transfusions: Yes Blood Transfusion Reaction: No Anesthesia Reactions: No Chicken Pox: Yes Cancer: No Surgical History Hysterectomy: Yes
== END 2025-01-25 10:53 | disposition home or self-care (01) ==
LOC: HODSRG 10:08
PROVIDERS: PCP Family Medicine; Referring Provider Family Medicine; Supervising Provider Surgery; Visit Provider Surgery
DX: K43.2 Incisional hernia without obstruction or gangrene (principal); F17.200 Nicotine dependence, unspecified, uncomplicated; Z71.6 Tobacco abuse counseling
CPT/HCPCS: 99213; G0463

== ENCOUNTER 2025-02-21 09:48 | Outpatient (AMB) | payer OTHER, SELFPAY ==
[2025-02-21 09:58] VITALS: BP 127/81; PULSE 75; RESP 18; TEMP 36; O2SAT 98; BMI 35.5
--- NOTE | 2025-02-21 09:58 | PD.GSCLVISIT ---
Vital Signs - [facility] 02/21/25 09:58 Height 1.6 m Height Method Stated Weight 90.917 kg Weight Measurement Method Standing Scale BMI 35.5 BP 127/81 Blood Pressure Source Automatic Cuff Blood Pressure Location Right Upper Arm Position Sitting Respiration 18 Pulse 75 Pulse Source Monitor Temp 96.8 F Temp Source Temporal Artery Scan Pulse Oximetry (%) 98 Oxygen Delivery Method Room Air Med/Allergies Allergies & Medications Allergies Sulfa (Sulfonamide Antibiotics) Allergy (Verified 02/21/25 10:03) HIVES Medication Reconciliation allopurinol 300 mg tablet 300 mg PO DAILY Gout 06/26/24 [History Confirmed 02/21/25] tramadol 50 mg tablet 50 mg PO Q8H PRN pain #60 tabs 08/06/24 [Rx Confirmed 02/21/25] lactulose 10 gram/15 mL oral solution (Generlac) 20 g (30 mL) PO BID PRN constipation #3,000 mL 11/22/24 [Rx Confirmed 02/21/25] MA Intake Visit Data Collection New Patient or Established: Established Patient (seen at [facility] within 3 years) Reason for Visit:: PRE-OP Pain Present Currently: No Pain scale:: 1 Pain Scale Used: [facility]-Pastor/Numerical Medical Records Field Technician Required: No PCP or OBGYN visit in last 3 months: Yes Hx Now: No Do You Feel Safe at Home: Yes Authorities Contacted: N/A Smoking Status Smoking Status: Former smoker Immunization / Flu Flu Vaccine in the Last 12 Months: Yes Flu Vaccine Exclusion Criteria: No Exclusion Criteria Past Medical History Past Medical History NEUROLOGIC: Negative Neurological Disorders or Seizures CARDIAC: Negative Cardiac Disorders, Congestive Heart Failure or Hypotension RESPIRATORY: Negative Chronic Obstructive Pulmonary Disease (COPD) GASTROINTESTINAL: Positive Gastrointestinal Disorders and Diverticulitis; Negative Hepatitis GENITOURINARY: Positive Genitourinary Disorders, Renal Disease and Kidney Stones REPRODUCTIVE: Positive Previous Pregnancies (2) MUSCULOSKELETAL: Positive Arthritis and Gout ENDOCRINE: Negative Endocrine Disorders, Diabetes Mellitus Type 1 or Diabetes Mellitus Type 2 HEMATOLOGIC: Positive Blood Disorders and Anemia PSYCHO/SOCIAL: Positive Anxiety OTHER HISTORY: Positive Hospitalization (surgery, ICU admission x2 recently, kidney disease), Blood Transfusions and Chicken Pox; Negative Autoimmune Disease, Shingles, Blood Transfusion Reaction, Anesthesia Reactions or Cancer Family History FAMILY HISTORY: Positive Family Cardiac Disorders, Family Cancer and Family Surgery; Negative Family Psychiatric Problems, Family Respiratory Disorders, Family Gastrointestinal Problems or Family Anesthesia Reaction Surgical History SURGICAL: Positive Tonsillectomy, Abdominal Surgery, Gastric Bypass Surgery, Bowel Surgery (colon resection with ileostomy), Hysterectomy and Section Social History SMOKING STATUS: Smoking status: Former smoker ALCOHOL: Alcohol Intake: Former HOUSING: Housing: House LIVES WITH: Lives With: Spouse HPI HPI Narrative 60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 Pt is feeling well overall but experiencing more discomfort from the hernia, is feeling ready for surgery and has no new complaints ROS Review of Systems Systems Reviewed: All systems reviewed, normal except as documented Objective/Exam General General Appearance: alert, cooperative and well groomed Resp Respiratory exam: Absent respiratory distress Abdominal Abdominal exam: Present soft and hernia (reducible incisional hernia, no overlying skin changes); Absent distention or tenderness Results CT AP reviewed Assessment & Plan Diagnosis / Problem List (1) Incisional hernia: Status: Acute Assessment & Plan: 60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 We have discussed at length benefits/risks including hernia recurrence, infection, bleeding and pain. All questions were answered and pt is agreeable to proceeding Office Procedures GNS Level of Care Nursing/Assessment Patient Status: Established Patient Nursing Assessment/Reassesment: Medication Reconciliation, Update PMH in EMR and Vital Signs Coordination of Care: Complex Care and Chronic Disease 1-5, Education Complex Pt/Fam, Consent,records obtained, informed consent, 1 Ins Authorization, Results/Orders obtained and Staff clarify orders Established Patient Charge Established Patient Point Assignment: 110 Established Patient Point Charge: EP Level 3 (80-115) Patient Portal Questionaires Social History Living Situation History Housing: House Tobacco History Smoking Status: Former smoker Alcohol History Alcohol Intake: Former Domestic Abuse History Do You Feel Safe at Home: Yes Review of Systems Report any current symptoms Only answer those that you have currently: Past Medical History Past Medical History Have you ever been diagnosed with any of the following: Neurological Problems Seizures: No Cardiology Problems Congestive Heart Failure: No Hypotension: No Respiratory Problems Chronic Obstructive Pulmonary Disease (COPD): No Stomache/Intestinal Problems Hepatitis: No Diverticulitis: Yes Genital/Urinary Problems Renal Disease: Yes Kidney Stones: Yes Reproductive Problems Previous Pregnancies: Yes (2) Musculoskeletal Problems Arthritis: Yes Gout: Yes Endocrine Problems Diabetes Mellitus Type 1: No Diabetes Mellitus Type 2: No Blood Problems Anemia: Yes Psychologic Problems Anxiety: Yes Other Problems Hospitalization: Yes (surgery, ICU admission x2 recently, kidney disease) Autoimmune Disease: No Shingles: No Blood Transfusions: Yes Blood Transfusion Reaction: No Anesthesia Reactions: No Chicken Pox: Yes Cancer: No Surgical History Hysterectomy: Yes
== END 2025-02-21 10:20 | disposition home or self-care (01) ==
LOC: HODSRG 09:48
PROVIDERS: PCP Family Medicine; Referring Provider Family Medicine; Supervising Provider Surgery; Visit Provider Surgery
DX: K43.2 Incisional hernia without obstruction or gangrene (principal)
CPT/HCPCS: 99213; G0463

== ENCOUNTER 2025-02-27 06:45 | Day surgery (SDC) | payer OTHER, SELFPAY ==
[2025-02-25 11:14] VITALS: BMI 32.5
[2025-02-25 13:06] LABS: Basophils # (Auto) 0.1 Thou/mm3 (0.0-0.2); Basophils % (Auto) 1 % (0-2.5); Eosinophils # (Auto) 0.2 Thou/mm3 (0.0-0.5); Eosinophils % (Auto) 3 % (0-10); Hematocrit 33.9 % (36.0-46.0); Hemoglobin 10.1 g/dL (12.0-16.0); Immature Granulocytes Auto 0.04 Thou/mm3 (0.00-0.00); Lymphocytes # (Auto) 2.6 Thou/mm3 (1.0-4.8); Lymphocytes % (Auto) 34 % (10-50); Mean Corpuscular HGB Conc 29.8 g/dl (31.0-37.0); Mean Corpuscular Hemoglobin 26.4 pg (25.0-35.0); Mean Corpuscular Volume 89 fL (80-100); Monocytes # (Auto) 0.6 Thou/mm3 (0.0-0.8); Monocytes % (Auto) 7 % (0-12); Neutrophils # (Auto) 4.3 Thou/mm3 (1.8-7.7); Neutrophils % (Auto) 55 % (37-80); Nucleated Red Blood Cell # 0.00 Thou/mm3 (0.00-0.00); Nucleated Red Blood Cell % 0 /100 WBC (0); Platelet Count 173 Thou/mm3 (140-440); RDW Standard Deviation 49.1 fL (36.4-46.3); Red Blood Count 3.82 Miln/mm3 (4.00-5.20); White Blood Count 7.8 Thou/mm3 (3.6-11.0)
[2025-02-25 13:24] LABS: Anion Gap 11 (7-16); BUN/Creatinine Ratio 12 Ratio (12-20); Blood Urea Nitrogen 18 mg/dL (9-23); Calcium 9.6 mg/dL (8.3-10.6); Carbon Dioxide 18.1 mMol/L (20.0-31.0); Chloride 112 mMol/L (98-107); Creatinine (Component) 1.5 mg/dL (0.6-1.3); Estimated Creatinine Clearance 43.4 mL/min (>60); Glucose 88 mg/dL (74-106); Osmolality,Calculated 282 (275-295); Potassium 3.4 mMol/L (3.4-5.1); Sodium 141 mMol/L (136-145); eGFR 40 See Note
[2025-02-25 13:37] LABS: INR 0.9 (0.9-1.3); Partial Thromboplastin Time 21.5 Seconds (22.0-36.0); Prothrombin Time 9.8 Seconds (9.0-12.2)
[2025-02-27] VITALS (27 sets, daily range): BP systolic 100–150; BP diastolic 55–92; PULSE 69–94; RESP 13–98; TEMP 36.1–36.9; O2SAT 95–100; BMI 34.3
--- NOTE | 2025-02-27 07:27 | CHAP ---
Patient was with her family member. I visited with them giving words of assurance, comfort and prayer.
[2025-02-27] MEDS: RINGERS LACTATED 1000 ML 1,000 ML 20 ML IV (07:32)
[2025-02-27] MEDS: MIDAZOLAM INJ 1 MG/ML VIAL 2 ML 2 MG IVP (09:04)
--- NOTE | 2025-02-27 11:14 | PD.SUROPNT ---
Date of Procedure 02/27/25 Pre Op Diagnosis Symptomatic incisional hernia Post Op Diagnosis Same Procedure Incisional hernia repair with mesh Findings 6.6cm incisional hernia defect Procedure Description After discussion of risks and benefits patient was brought to the operating room, SCDs were placed and general anesthesia was induced. She received preoperative antibiotics and was prepped and draped in usual sterile fashion. After timeout a midline incision was created through the existing incision in the region overlying the hernia defect. The subcutaneous tissue was bluntly divided until the herniated contents were encountered. The hernia defect was easily visualized and the edges of the fascia were freed of all adhesions using blunt dissection. Once the fascia was circumferentially freed, the defect was measured to be a little over 6 cm in vertical dimension consistent with the previous CT scan. A Ventrio ST mesh measuring 8 x 12 cm was chosen to provide adequate defect coverage without allowing for bunching. The mesh was placed into the hernia defect and sutured to the fascia circumferentially using interrupted 2-0 Prolene sutures. Additional sutures were placed to ensure there were no gaps between the fascia and the mesh. The wound was irrigated and closed first with 2-0 Vicryl interrupted sutures and the subcutaneous tissue, followed by 3-0 Vicryl interrupted sutures to reapproximate the skin. The skin was then closed with elina and covered with Adaptic, gauze and Tegaderm. Patient was extubated and brought to PACU in stable condition Implants Implants comments: Ventrio ST mesh 8x12cm Pathology / specimen None Estimated Blood Loss 50 Surgeon Emeli Crouch MD Surgical Staff Operation Date: 02/27/25 09:00 Case Staff Anesthesiologist: Alok Davis Assisting Surgeon: Linda Stevenson
--- NOTE | 2025-02-27 11:43 | SUR.PHASEI ---
1114: Pt received in Pacu via gurney. Report from Candace ZAPATA and Dr. Welch. Pt obtunded. Resp even, unlabored. VS stable. Dressing to abdomen dry, clean, intact. No c/o pain. 1140: Pt is arousable. No complaints voiced. Resp even, unlabored. VS stable. Dressing remains dry, clean, intact. 1146: Pt more awake, alert. States she only has pain with movement and is tolerable.
[2025-02-27] MEDS: fentaNYL CIT INJ 50 mCg/ML AMP 2ML 25 MCG IVP ×2 (11:52→14:41)
--- NOTE | 2025-02-27 11:55 | SUR.PHASEI ---
1152: Pt has c/o pain to abdomen. Rates pain level 6/10. Resp even, unlabored. VS stable. Pain medication given per order.
--- NOTE | 2025-02-27 12:26 | SUR.PHASEI ---
1124: Pt has been sleeping with no further c/o pain. Resp even, unlabored. VS stable.
--- NOTE | 2025-02-27 12:42 | SUR.OPER ---
Bovie site was bruised when removed by Alex RUANO. Recovery nurse was informed.
--- NOTE | 2025-02-27 14:57 | SUR.PHASEI ---
1215: Pt continues to rest. Resp even, unlabored. VS stable. 1315: Pt has been sleeping. VS stable. 1350: Pt awake with needing to void. Stated she wished to ambulate to restroom. Assisted and ambulation steady. 1413: Pt assisted back to [facility]. Monitors reapplied. 1441: Pt has c/o pain to abdomen. Rates pain level 5/10. VS stable. Resp even, unlabored. Pain medication given per order.
--- NOTE | 2025-02-27 15:45 | SUR.PHASEI ---
1415 patient is awake, alert, breathing unlabored, s/p incisional hernia repair by Dr. Crouch, dressing to abomen dry with no active bleeding, abdominal binder in placed, report received from Kelley RN, patient waiting for inpatient bed assignment.
[2025-02-27] MEDS: HYDROmorphone INJ 2 MG/ML VIAL 0.5 MG IVP (16:02)
[2025-02-27] MEDS: ONDANSETRON INJ 2 MG/ML INJ 2 ML 4 MG IVP (16:05)
--- NOTE | 2025-02-27 18:35 | SUR.PHASEI ---
181 patient is awake, alert, breathing unlabored, dressing to abdomen dry with no active bleeding, abdominal binder in place. patient able to tolerate ice chips with no nausea or vomiting. Report given to Pearl ZAPATA, patient transferred to room 369 with all patient's belongings. Gary called at [phone] and made aware of new bed assignment, family member will come visit patient tomorrow.
[2025-02-27] MEDS: oxyCODONE HCL 5 MG IR TAB PO ×2 (18:43→23:54)
--- NOTE | 2025-02-27 19:43 | PC.NURSE ---
ambulated in hallway 1 round around nurses' station with gait steady holding unto siderails on wall, with 1 person standby assist.
[2025-02-27] MEDS: ACETAMINOPHEN 325 MG TABLET 650 MG PO (23:09)
[2025-02-28] VITALS: BP 119/73; PULSE 67; RESP 18; TEMP 36.3; O2SAT 97
[2025-02-28 04:00] VITALS: BP 120/77; PULSE 59; RESP 18; TEMP 36.2; O2SAT 98
[2025-02-28] MEDS: oxyCODONE HCL 5 MG IR TAB PO ×2 (04:06→07:43)
--- NOTE | 2025-02-28 06:02 | PD.SURPROG ---
Documentation for date of: 02/28/25 Subjective Subjective Narrative: Pain controlled with oxycodone q4h, no nausea, tolerating liquids and passing gas, ambulated after surgery, vitals remaining normal Exam Vital Signs Temp Pulse Resp BP Pulse Ox O2 Del Method O2 Flow Rate 97.1 F 59 L 18 120/77 98 Room Air 6 02/28/25 04:00 02/28/25 04:00 02/28/25 04:00 02/28/25 04:00 02/28/25 04:00 02/28/25 04:00 02/27/25 11:30 Constitutional Constitutional: no acute distress Routine Respiratory Exam Respiratory: Present no resp distress Routine Abdominal Exam Abdominal: Present soft and wound (midline dressing c/d/i); Absent tenderness or distended Results Results: Laboratory Laboratory results: results reviewed Assessment & Plan Plan 60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
--- NOTE | 2025-02-28 06:06 | ESDS_ITS ---
Planned Discharge Date 02/28/25 DS: Providers Provider Date of admission: 02/27/25 06:45 Primary care physician: Herrera Chan MD Admitting Provider: Emeli Crouch MD Attending Provider on Admission: Emeli Crouch MD Consults: 02/27/25 21:45 Referral Infection Control Routine Comment: Reason for Infection Control Referral: Recent Surgical Wound Attending Provider on DC: Emeli Crouch MD Discharging Provider: Emeli Crouch MD Diagnosis Discharge Diagnosis (1) Incisional hernia: Status: Acute Problem List Completed Was Problem List Reviewed/Reconciled?: Yes Exam Vital Signs Temp Pulse Resp BP Pulse Ox O2 Del Method O2 Flow Rate 97.1 F 59 L 18 120/77 98 Room Air 6 02/28/25 04:00 02/28/25 04:00 02/28/25 04:00 02/28/25 04:00 02/28/25 04:00 02/28/25 04:00 02/27/25 11:30 Discharge Plan Plan Patient Disposition: HOME (Self Care) Prescriptions/Referrals Prescriptions/Med Rec: New oxycodone 5 mg tablet 5 mg PO Q4H MDD 6 tabs PRN (Reason: pain) Qty: 60 0RF Rx Instructions: Take 1 tablet as needed every 4 hours for moderate to severe pain No Action allopurinol 300 mg tablet 300 mg PO DAILY Referrals: Herrera Chan MD [Primary Care Provider] Emeli Crouch MD [Physician, General Surgery] Referral Note: You will receive a message to confirm a follow-up message with me in 2 weeks Patient/Caregiver Discharge Instructions Other Discharge Activity Instructions:: Avoid strenuous activity including lifting objects >10lbs for 6 weeks You may remove your clear dressing tomorrow 03/01 As of 03/01 it is ok to shower, you may get your incision wet, pat dry after Your elina will be removed at your follow-up appointment Take tylenol as needed between doses of oxycodone Maximum dose of tylenol is 4000mg (4g) in 24 hours Oxycodone can cause constipation. Please drink plenty of water and take fiber If needed please take miralax for constipation If you develop pain not controlled by medications, nausea/vomiting, fever or concerns about the incision please seek care in ER. If non urgent please call the office at [phone] (M-F, 8am-12pm and 1-4pm) Education Materials: Hernia Repair Surgery Print Language: Slovenian Stand Alone Forms: Alecia Award Info., Patient Portal Info Letter Discharge Order Discharge Orders: Discharge (Routine); Ordered 02/28/25 Ordered By: Emeli Crouch Results Results: Laboratory Laboratory results: results reviewed Results: Imaging CT scan - abdomen: report reviewed and image reviewed PROCEDURES: Procedure Date 02/27/25 Procedures Incisional hernia repair with mesh (1) Incisional hernia Qualifiers: Obstruction and gangrene presence: without obstruction or gangrene Qualified Code(s): K43.2 - Incisional hernia without obstruction or gangrene
--- NOTE | 2025-02-28 06:45 | PC.NURSE ---
discharge instructions given to pt.
--- NOTE | 2025-02-28 07:28 | PC.NURSE ---
Patient complaining of pain level rated 7/10. Patient will be discharging after administration of pain medication. IV was removed.
== END 2025-02-28 08:04 | disposition home or self-care (01) ==
LOC: S3SX 02-28 06:06 → S2EX 02-28 07:40 → S3SX 02-28 07:41
PROVIDERS: PCP Family Medicine; Referring Provider Surgery; Visit Provider Surgery
PROC: (CPT 49593; principal; 2025-02-27 08:45)
DX: K43.2 Incisional hernia without obstruction or gangrene (principal)
CPT/HCPCS: 49593; 36415; 80048; 85025; 85610; 85730; A4217; A4649; C1781; J0131; J0690; J1171; J2250; J2405; J2704; J3010; J3490; J7120; A9270

== ENCOUNTER 2025-03-06 08:03 | Outpatient (AMB) | payer OTHER, SELFPAY ==
[2025-03-06 08:13] VITALS: BP 129/85; PULSE 86; RESP 18; TEMP 35.9; O2SAT 96; BMI 33.6
--- NOTE | 2025-03-06 08:13 | GSCOFFNT_ITS ---
Vital Signs - [facility] 03/06/25 08:13 Height 1.63 m Height Method Measured Weight 89.443 kg Weight Measurement Method Standing Scale BMI 33.6 BP 129/85 H Blood Pressure Source Automatic Cuff Blood Pressure Location Left Upper Arm Position Sitting Respiration 18 Pulse 86 Pulse Source Monitor Temp 96.6 F L Temp Source Temporal Artery Scan Pulse Oximetry (%) 96 Oxygen Delivery Method Room Air Med/Allergies Allergies & Medications Allergies Sulfa (Sulfonamide Antibiotics) Allergy (Verified 03/06/25 08:14) HIVES Medication Reconciliation allopurinol 300 mg tablet 300 mg PO DAILY Gout 06/26/24 [History Confirmed 03/06/25] ondansetron 4 mg disintegrating tablet 4 mg PO Q6H PRN nausea and vomiting #30 tabs 03/05/25 [Rx Confirmed 03/06/25] docusate sodium 100 mg capsule (Colace) 100 mg PO QDAY constipation #30 caps 03/06/25 [Rx] oxycodone 5 mg tablet 5 mg PO Q4H PRN pain #60 tabs 03/06/25 [Rx] MA Intake Visit Data Collection New Patient or Established: Established Patient (seen at [facility] within 3 years) Seen by Clinical Staff ONLY (RN/MA): No Reason for Visit:: F/U HERNIA Pain Present Currently: Yes Pain scale:: 6 Pain Scale Used: Barnett-Pastor/Numerical [employer] Services Officer Required: No PCP or OBGYN visit in last 3 months: Yes Hx Now: No Do You Feel Safe at Home: Yes Authorities Contacted: N/A Smoking Status Smoking Status: Former smoker Immunization / Flu Flu Vaccine in the Last 12 Months: Yes Flu Vaccine Exclusion Criteria: Already Received Past Medical History Past Medical History NEUROLOGIC: Negative Neurological Disorders or Seizures CARDIAC: Negative Cardiac Disorders, Congestive Heart Failure or Hypotension RESPIRATORY: Positive Bronchitis; Negative Chronic Obstructive Pulmonary Disease (COPD) GASTROINTESTINAL: Positive Gastrointestinal Disorders, Diverticulitis and Obesity; Negative Hepatitis GENITOURINARY: Positive Genitourinary Disorders, Renal Disease and Kidney Stones (none now) REPRODUCTIVE: Positive Previous Pregnancies (2) MUSCULOSKELETAL: Positive Arthritis and Gout ENDOCRINE: Negative Endocrine Disorders, Diabetes Mellitus Type 1 or Diabetes Mellitus Type 2 HEMATOLOGIC: Positive Blood Disorders and Anemia PSYCHO/SOCIAL: Positive Anxiety OTHER HISTORY: Positive Hospitalization (surgery, ICU admission x2 recently, kidney disease), Blood Transfusions and Chicken Pox; Negative Autoimmune Disease, Down Syndrome, Developmental Delay, Shingles, Falls, Blood Transfusion Reaction, Anesthesia Reactions, MRSA, Clostridium Diffi cile or Cancer Family History FAMILY HISTORY: Positive Family Cardiac Disorders, Family Cancer (aunt- lung) and Family Surgery; Negative Family Psychiatric Problems, Family Respiratory Disorders, Family Gastrointestinal Problems or Family Anesthesia Reaction Surgical History SURGICAL: Positive Tonsillectomy, Abdominal Surgery, Gastric Bypass Surgery, Bowel Surgery, Hysterectomy (ovaries still in place.) and Section Social History SMOKING STATUS: Smoking status: Former smoker SECOND HAND EXPOSURE: second hand exposure: No (smoking occassionally) ALCOHOL: Alcohol Intake: Former ALCOHOL FREQUENCY: Alcohol Intake Frequency: holidays/special occasions only HOUSING: Housing: House LIVES WITH: Lives With: Spouse HPI HPI Narrative Pt presenting today due to persistent abdominal pain and nausea. She states the symptoms have been steady since surgery, not worsening but also not improving. At first she was taking oxycodone q4h, she has since tried to spread it out but continues to feel pain, currently 5/10 (last med was at 3am). Pt has not tried taking tylenol. She is able to pass gas but has not had a BM since the day before surgery and had one episode of vomiting. Pt also noted there is a bulge to the left of the incision, she is unsure when she first noticed it but does feel it is softer today than previous days ROS Review of Systems Systems Reviewed: All systems reviewed, normal except as documented Objective/Exam General General Appearance: alert, cooperative and well groomed Resp Respiratory exam: Absent respiratory distress Abdominal Abdominal exam: Present soft, tenderness (mild tenderness to palpation) and scar (to pt's left of incision there is an area of swelling with no overlying skin changes, it is not indurated or fluctuant and not tender, does not change with coughing); Absent distention Assessment & Plan Diagnosis / Problem List (1) Incisional hernia: Status: Acute Qualifiers: Obstruction and gangrene presence: without obstruction or gangrene Qualified Code(s): K43.2 - Incisional hernia without obstruction or gangrene Assessment & Plan: 60F s/p incisional hernia repair with mesh 02/27/25, with postop pain, nausea/vomiting. Pt was initially reluctant to go to ER for urgent evaluation but has now decided to so I will inform the montessori lead teacher and follow her result Orders: Orders CT abdomen pelvis w con 2 Days K43.2 - Incisional hernia without obstruction or gangrene Office Procedures GNS Level of Care Nursing/Assessment Patient Status: Established Patient Nursing Assessment/Reassesment: Medication Reconciliation, Update PMH in EMR and Vital Signs Coordination of Care: Complex Care and Chronic Disease 1-5, Education Complex Pt/Fam, Consent,records obtained, informed consent, Results/Orders obtained and Staff clarify orders Established Patient Charge Established Patient Point Assignment: 95 Established Patient Point Charge: EP Level 3 (80-115) Patient Portal Questionaires Social History Living Situation History Housing: House Tobacco History Smoking Status: Former smoker Second Hand Smoke Exposure: No (smoking occassionally) Alcohol History Alcohol Intake: Former Alcohol Intake Frequency: holidays/special occasions only Domestic Abuse History Do You Feel Safe at Home: Yes Review of Systems Report any current symptoms Only answer those that you have currently: Past Medical History Past Medical History Have you ever been diagnosed with any of the following: Neurological Problems Seizures: No Cardiology Problems Congestive Heart Failure: No Hypotension: No Respiratory Problems Chronic Obstructive Pulmonary Disease (COPD): No Bronchitis: Yes Stomache/Intestinal Problems Hepatitis: No Diverticulitis: Yes Obesity: Yes Genital/Urinary Problems Renal Disease: Yes Kidney Stones: Yes (none now) Reproductive Problems Previous Pregnancies: Yes (2) Musculoskeletal Problems Arthritis: Yes Gout: Yes Endocrine Problems Diabetes Mellitus Type 1: No Diabetes Mellitus Type 2: No Blood Problems Anemia: Yes Psychologic Problems Anxiety: Yes Other Problems Hospitalization: Yes (surgery, ICU admission x2 recently, kidney disease) Autoimmune Disease: No Down Syndrome: No Developmental Delay: No Shingles: No Falls: No Blood Transfusions: Yes Blood Transfusion Reaction: No Anesthesia Reactions: No MRSA: No Chicken Pox: Yes Clostridium Difficile: No Cancer: No Surgical History Hysterectomy: Yes (ovaries still in place.)
== END 2025-03-06 08:35 | disposition home or self-care (01) ==
LOC: HODSRG 08:03
PROVIDERS: PCP Hospitalist; Referring Provider Hospitalist; Supervising Provider Surgery; Visit Provider Surgery
DX: K43.2 Incisional hernia without obstruction or gangrene (principal)
CPT/HCPCS: 99213; G0463

== ENCOUNTER 2025-03-06 08:48 | Inpatient (IN) | payer OTHER, SELFPAY ==
[2025-03-06] VITALS (14 sets, daily range): BP systolic 95–126; BP diastolic 60–86; PULSE 62–84; RESP 14–20; TEMP 36.1–37.2; O2SAT 96–100; BMI 33.7; BMI 34.9
--- NOTE | 2025-03-06 09:31 | EDNOTE_ITS ---
<Statement entered by Korin Huynh MD - 03/06/25 16:14> I, Korin Huynh MD, have reviewed the history, exam, and assessment of the patient. I have evaluated the patient independently and agree with the plan of care documented by [ ]. All diagnostic studies were reviewed and discussed. I confirm the diagnosis as documented by the Resident. I was present during the Medical Decision Making for this patient. The patient's plan of care was created between myself and the Resident and consistent with our discussion of the patient's case. ED Abdominal Pain RME/HPI General Chief Complaint: Abdominal Pain Stated complaint: ABD PAIN, N/V, CONSTIPATION; SENT BY DR. 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 Patient presented to the emergency room from general surgeons office with chief complaint of diffuse abdominal pain and constipation since 02/28/2025. Patient complained of vomting at home and nasuea. No bowel movement. Jose has been taking oxycodone since surgery. History of abdominal surgery at [facility] per patient history, unsure what procedure she had. CT [place] w/ con (1 bolus given prior to constrast) General Surgery Consulted images. Recommending patinet be started on NG tube, with caution if resistant encoughtered given history of hiatal hernia. NPO. Related Data Home Medications ?Medication ?Instructions ?Recorded ?Confirmed allopurinol 300 mg tablet 300 mg PO DAILY Gout 06/26/2 5 03/06/25 Previous Rx's ?Medication ?Instructions ?Recorded ondansetron 4 mg disintegrating 4 mg PO Q6H PRN nausea and 03/05/25 tablet vomiting #30 tabs docusate sodium 100 mg capsule 100 mg PO QDAY constipa tion #30 03/06/25 (Colace) caps oxycodone 5 mg tablet 5 mg PO Q4H PRN pain #60 tab s 03/06/25 Allergies Allergy/AdvReac Type Severity Reaction Status Date / Time Sulfa (Sulfonamide Allergy HIVES Verified 11/05/25 08:51 Antibiotics) Review of Systems Review of Systems Narrative Review of Systems: General appearance: NO weight change, NO fatigue, NO weakness, NO fever, NO chills, NO night sweats, No cough Skin: NO rash, NO itching, NO sores, NO moles HEENT: NO Trauma, NO nausea, NO vomiting, NO visual changes, NO blurry vision, NO double vision, NO tinnitus, NO vertigo, NO ear discharge, NO rhinorrhea, NO stuffiness, NO sneezing, NO allergy, NO epistaxis. NO Hoarseness, NO sore throat, NO swollen neck. Cardiac: NO Palpitations, NO dyspnea on exertion, NO orthopnea, NO paroxysmal nocturnal dyspnea, NO edema Respiratory: NO Shortness of Breath, NO Wheezing, NO Cough, NO Sputum, NO hemoptysis GI:NO appetite, Yes nausea, Yes vomiting, NO dysphagia, NO changes in bowel frequency, NO stool color, NO diarrhea, NO constipation, NO hemetemesis, NO hemorrhoids, NO melena, NO hematechezia, NO abdominal pain, NO jaundice Renal: NO frequency, NO hesitancy, NO urgency, NO hematuria, NO nocturia, NO incontinence MSK: NO muscle weakness, NO gout, NO arthritis, NO muscle stiffness Neuro: NO headaches, NO tremors, NO weakness, NO paralysis, NO seizures, NO loss of consciousness, NO numbness. Hem: NO anemia, NO easy bruising/bleeding, NO petechiae, NO purpura Endo: NO heat/cold intolerance, NO excessive sweating, NO polyuria, NO polydip priscila, NO polyphagia, NO thyroid problems, NO diabetes Pysch: NO mood, NO anxiety, NO depression ED Exam Narrative Physical exam: General Appearance: Alert & Oriented X3, well-nourished female who is lying in bed in mild distress. HEENT: Skull symmetrical and atraumatic. Conjunctivae pink and moist. Pupils equal, round, reactive to light and accommodation (PERRL). External ear without lesion or discharge. Straight, nares patient, mucosa pink, no discharge. Cardio: Normal Rate and Rhythm with S1 and S2 heart sounds. No murmurs or extra heart sounds auscultated. No bruits on carotid auscultation. No peripheral edema or cyanosis. Lungs: Symmetric with good expansion. Chest and back non-tender. Breath sounds vesicular without crackles, wheezing or rhonchi Abdomen: tenderness, mild distended, Normal Reactive Bowel Sounds, incision site clean no discharge or erythema noted, and well demarcated area near her incision site that is tender to palpation. Neuro: Alert, cooperative, oriented to person, place, and time. Speech clear. CN grossly intact. Upper motor strength 5/5 and Lower motor strength 5/5. Sensation intact. Course Course Course Narrative: CBC CMP lactic CT abdomen w/ con Quality Measures none Orders Category Date Time Status CT Screening NOW Care 03/06/25 09:05 Active Insert IV NOW Care 03/06/25 09:05 Active Insert NG / OG tube NOW Care 03/06/25 13:59 Active NPO NOW Care 03/06/25 13:59 Active Diet NPO (NOW) Diet 03/06/25 13:[address] abdomen pelvis wo con Stat Exams 03/06/25 13:14 Completed CBC Stat Lab 03/06/25 09:57 Completed Comprehensive Metabolic Panel Stat Lab 03/06/25 09:57 Completed Lactic Acid [Lactate (Lactic Acid)] Stat Lab 03/06/25 09:57 Completed Lipase Stat Lab 03/06/25 09:57 Completed UA, C/S IF [Urinalysis, C/S if Indicated] Stat Lab 03/06/25 09:23 Completed HYDROcodone*/APAP 5/325 [Andes 5/325] Med 03/06/25 11:45 Discontinued 1 tab PO X1 ONE Lidocaine Jelly 2% Urojet [Xylocaine Jelly 2% Urojet] Med 03/06/25 14:03 Discontinued See Dose Instructions TOP X1 ONE Morphine* Inj Med 03/06/25 09:48 Discontinued 2 mg IVP X1 ONE Ondansetron Inj [Zofran Inj] Med 03/06/25 09:52 Discontinued 4 mg IVP X1 ONE Promethazine HCl [Phenergan] Med 03/06/25 11:46 Discontinued 25 mg PO X1 ONE Ringers Lactated 1000 ml [Lactated Ringers] 1,000 ml Med 03/06/25 09:44 Discontinued IV 999 mls/hr EKG (RT) Routine RT 03/06/25 09:52 Draft Vital Signs Vital signs: Vital Signs Temperature 98.3 F 03/06/25 08:57 Pulse Rate 84 03/06/25 08:57 Respiratory Rate 18 03/06/25 08:57 Blood Pressure 126/86 H 03/06/25 08:57 Pulse Oximetry (%) 98 03/06/25 08:57 Oxygen Delivery Method Room Air 03/06/25 08:57 Abdominal Pain MDM Patient data External records reviewed:: [facility] previous records Clinical information provided by:: patient Social determinants that could affect healthcare access:: housing Patient has the following chronic illnesses:: history of hiatal hernia and recent mesh How is presenting disease/condition affected by chronic disease/condition?: exacerbated by Evaluation data The following diagnostics were reviewed and interpreted by me:: lab results, radiology exam(s) and EKG tracing(s) Lab and/or radiology exams considered but not ordered:: none Interpretation Summary: CT Abdomen w/ con: Interim postop changes, with development of high-grade small bowel obstruction which may be secondary to an incarcerated small bowel- containing ventral hernia as detailed above Medications / Prescriptions Medications or Prescriptions considered but not ordered:: none Medication administrations:: Medication Administration History Discontinued Medications Hydrocodone Bitart/Acetaminophen (Hydrocodone/Apap 5/325 Tablet) 1 tab PO X1 ONE Stop: 03/06/25 11:46 Last Admin: 03/06/25 11:51 Dose: 1 tab Documented By: FAHEEM Lactated Ringer's (Lactated Ringers) 1,000 mls @ 999 mls/hr IV .Q1H1M ONE Stop: 03/06/25 10:44 Last Infusion: 03/06/25 11:12 Dose: Infused Documented By: Admin: 03/06/25 10:00 Dose: 999 mls/hr Documented By: FAHEEM Lidocaine HCl (Lidocaine Jelly 2% (Urojet) 10 Ml Tube) 0 ml TOP X1 ONE Stop: 03/06/25 14:04 Morphine Sulfate (Morphine Sulf Inj 4 Mg/Ml Vial) 2 mg IVP X1 ONE Stop: 03/06/25 09:49 Last Admin: 03/06/25 09:58 Dose: 2 mg Documented By: FAHEEM Ondansetron HCl (Ondansetron Inj 2 Mg/Ml Inj 2 Ml) 4 mg IVP X1 ONE; Protocol Stop: 03/06/25 09:53 Last Admin: 03/06/25 09:59 Dose: 4 mg Documented By: FAHEEM Promethazine HCl (Promethazine Hcl 25 Mg Tablet) 25 mg PO X1 ONE Stop: 03/06/25 11:47 Last Admin: 03/06/25 11:52 Dose: 25 mg Documented By: FAHEEM same as above Consultations Consultation(s) initiated? (list below): Yes Consultation #1 (Physician, Specialty, Details): Dr. Crouch, general surgery Admitt pateint, NG tube, possible surgery on 03/06/2025 Time: 01:56 Diagnosis Differential diagnosis abdominal pain: abdominal pain, acute appendicitis, diverticulitis and small bowel obstruction Most likely diagnosis given after review of the tests above:: Given CT images and clinical presentation, concern for small bowel obstruction - The patient's plan was discussed with attending Dr. Amina Obando MD PGY2 Internal Medicine Admission Indicated Admission indicated?: indicated Admission Request Was there a request for admission?: Yes Admission Attestation Admission request attestation: Discussed case with Dr. Espinoza from Hospitalist service regarding admission. Discussed patients ED course, exam findings, labs, and radiology results. The Hospitalist agrees to accept the patient for admission. Disposition Plan Disposition Plan: Admit Discharge Plan Plan Patient Disposition: Admit Acute Care w/in Hospital Patient condition on transfer: Stable Prescriptions/Referrals Prescriptions/Med Rec: No Action oxycodone 5 mg tablet 5 mg PO Q4H MDD 6 tabs PRN (Reason: pain) Qty: 60 0RF Rx Instructions: Take 1 tablet as needed every 4 hours for moderate to severe pain docusate sodium [Colace] 100 mg capsule 100 mg PO QDAY Qty: 30 0RF Rx Instructions: Take 1 tablet as needed daily for constipation allopurinol 300 mg tablet 300 mg PO DAILY ondansetron 4 mg tablet,disintegrating 4 mg PO Q6H PRN (Reason: nausea and vomiting) Qty: 30 0RF Referrals: No Primary/Family,Physician [Primary Care Provider] - In 1 week Problem List Clinical Impression: Small bowel obstruction Patient/Caregiver Discharge Instructions Print Language: Thai Stand Alone Forms: Alecia Award Info., Patient Portal Info Letter
[2025-03-06 09:39] LABS: Collection Type, Urine Clean Catch
[2025-03-06 09:49] LABS: Bilirubin,Urine 1+ (Negative); Blood,Urine Negative (Negative); Clarity,Urine Clear (Clear/Hazy); Color,Urine Yellow (Lt Yel-Yel); Culture Indicated,Urine Not Indicated; Glucose, Urine Negative (Negative); Ketones,Urine 1+ (Negative); Leukocyte Esterase,Urine Negative (Negative); Nitrite,Urine Negative (Negative); PH,Urine 5.5 (5.0-7.0); Protein,Urine 1+ (Neg - Trace); RBC,Urine 3 /hpf (0-3); Specific Gravity,Urine 1.025 (1.001-1.035); Squamous Epithelial Cell,Urine 5 /hpf (0-5); Urobilinogen,Urine 3.0 mg/dL (0.0-1.0); WBC,Urine 2 /hpf (0-5)
--- NOTE | 2025-03-06 09:52 | EKG_ITS ---
[facility] Test Date: 2025-03-06 Pat Name: TACHO RAVI Department: Room: - Gender: Female Regional Administrative Assistant: : 1965 Requested By: Oriana Obando Order Number: [id number] Reading MD: Oriana Obando Measurements Intervals [place] Rate: 68 P: 28 OK: 139 QRS: -5 QRSD: 94 T: 41 QT: 251 QTc: 267 Interpretive Statements SINUS RHYTHM POSSIBLE ANTERIOR MYOCARDIAL INFARCTION , PROBABLY OLD [30 ms Q WAVE IN V3/V4, OR R < 0.2 mV IN V4] No previous ECG available for comparison /store/S0/[id number].pdf
[2025-03-06] MEDS: MORPHINE SULF INJ 4 MG/ML VIAL 2 MG IVP (09:58)
[2025-03-06] MEDS: ONDANSETRON INJ 2 MG/ML INJ 2 ML 4 MG IVP (09:59)
[2025-03-06] MEDS: RINGERS LACTATED 1000 ML 1,000 ML 999 ML IV (10:00)
[2025-03-06 10:02] LABS: Basophils # (Auto) 0.0 Thou/mm3 (0.0-0.2); Basophils % (Auto) 0 % (0-2.5); Eosinophils # (Auto) 0.2 Thou/mm3 (0.0-0.5); Eosinophils % (Auto) 3 % (0-10); Hematocrit 30.1 % (36.0-46.0); Hemoglobin 9.3 g/dL (12.0-16.0); Immature Granulocytes Auto 0.12 Thou/mm3 (0.00-0.00); Lactate (Lactic Acid) 0.9 mMol/L (0.4-2.0); Lymphocytes # (Auto) 1.3 Thou/mm3 (1.0-4.8); Lymphocytes % (Auto) 17 % (10-50); Mean Corpuscular HGB Conc 30.9 g/dl (31.0-37.0); Mean Corpuscular Hemoglobin 26.9 pg (25.0-35.0); Mean Corpuscular Volume 87 fL (80-100); Monocytes # (Auto) 1.2 Thou/mm3 (0.0-0.8); Monocytes % (Auto) 16 % (0-12); Neutrophils # (Auto) 4.8 Thou/mm3 (1.8-7.7); Neutrophils % (Auto) 62 % (37-80); Nucleated Red Blood Cell # 0.00 Thou/mm3 (0.00-0.00); Nucleated Red Blood Cell % 0 /100 WBC (0); Platelet Count 220 Thou/mm3 (140-440); RDW Standard Deviation 48.4 fL (36.4-46.3); Red Blood Count 3.46 Miln/mm3 (4.00-5.20); White Blood Count 7.7 Thou/mm3 (3.6-11.0)
[2025-03-06 10:36] LABS: Alanine Aminotransferase 48 U/L (10-49); Albumin, Serum 4.4 gm/dL (3.5-5.0); Albumin/Globulin Ratio 2.2 (1.2-2.2); Alkaline Phosphatase 380 U/L (46-116); Anion Gap 15 (7-16); Aspartate Amino Transferase 29 U/L (0-34); BUN/Creatinine Ratio 23 Ratio (12-20); Bilirubin,Total 0.4 mg/dL (0.3-1.2); Blood Urea Nitrogen 25 mg/dL (9-23); Calcium 8.7 mg/dL (8.3-10.6); Calcium (Corrected) 8.7 mg/dL (8.5-10.1); Carbon Dioxide 20.4 mMol/L (20.0-31.0); Chloride 104 mMol/L (98-107); Creatinine (Component) 1.1 mg/dL (0.6-1.3); Estimated Creatinine Clearance 60.3 mL/min (>60); Globulin 2.0 gm/dL (2.3-3.5); Glucose 84 mg/dL (74-106); Lipase 67 U/L (12-53); Osmolality,Calculated 280 (275-295); Potassium 3.9 mMol/L (3.4-5.1); Sodium 139 mMol/L (136-145); Total Protein 6.4 gm/dL (5.7-8.2); eGFR 58 See Note
[2025-03-06] MEDS: HYDROcodone/APAP 5/325 TABLET 1 TAB PO (11:51)
[2025-03-06] MEDS: PROMETHAZINE HCL 25 MG TABLET PO (11:52)
--- NOTE | 2025-03-06 13:14 | XR_ITS ---
Examination: CT abdomen and pelvis without contrast. Coronal 3-D reconstructions. Sagittal 2-D reconstructions. Date and time of exam: Abdominal pain. 1 week ago Study date and time: 03/06/2025, 1:[address] abdomen pelvis 11/09/2024. CTDI: vol (mGy): 13.8 DLP: (mGycm): 816 Technique: Axial images of the abdomen have been obtained, 3 mm slice thickness Intravenous contrast material has not been administered. Low dose protocols were performed. One or more of the following dose reduction techniques were used; automated exposure control, adjustment of the mA and/or KV according to patient size, use of iterative reconstruction technique. Findings: Assessment is limited without IV and oral contrast. Lower thorax: Very mild bilateral subsegmental atelectasis are present, including previously seen subsegmental atelectasis in the lingula which is more pronounced compared to prior study. No pleural effusions. Heart size is within normal limits. No pericardial effusion but there is aortic valve and multivessel coronary calcifications. Hypoattenuation of the cardiac blood pool relative to the myocardium suggests hemodilution. Mildly larger hiatal hernia now containing some ascites. Abdomen and pelvis: Redemonstration of sequela of gastric bypass surgery, as well as previously seen midline hernia containing small bowel up send mesentery.r the hernia measures approximate 9.5 cm TR by 4.9 cm CC with the mouth of the hernia to the left of midline measuring approximately 2.8 cm transverse (axial image 154), previously wider at 6.6 cm. Overlying skin elina and skin thickening are present. There has been interval development of distended fluid-filled small bowel as well as fluid within the ventral hernia. Additionally, there has been interval development of numerous significant distended small bowel loops containing fluid since the prior examination compatible with bowel obstruction. Majority of these loops appear to be the efferent limb, including distended excluded stomach. Additionally, there is resultant more pronounced, bile duct dilatation with otherwise no obstructing calculus or contour deforming mass. No calcified gallstones. Mid to distal small bowel are decompressed. No evidence for acute colitis, diverticulitis or appendicitis. No evidence for pneumatosis or pneumoperitoneum. Mild hepatosplenomegaly are present but with otherwise homogeneous attenuation of these organs. No evidence for acute pancreatitis or main pancreatic ductal dilatation. Slight benign-appearing thickening of the adrenal glands but with otherwise no evidence for mass or hemorrhage. No urinary tract calculi or acute obstructive uropathy. The bladder is unremarkable. The uterus is surgically absent. Aortobiiliac atherosclerotic calcifications without aneurysm. Flattened IVC and bilateral common iliac veins is likely due to hypovolemia. Redemonstration of chronic left-sided retroperitoneal fluid collection which shows interval decrease in size, currently measuring 6.5 x 3.7 cm transaxial (image 148), previously measuring approximately 7.1 x 5.0 cm when measured in similar manner. Mildly prominent likely reactive mesenteric lymph nodes are present. MUSCULOSKELETAL: Multifocal degenerative changes with otherwise no evidence for recent fracture or aggressive lesion. Impression: Interim postop changes, with development of high-grade small bowel obstruction which may be secondary to an incarcerated small bowel-containing ventral hernia as detailed above. Hepatosplenomegaly. Ancillary findings as above.
--- NOTE | 2025-03-06 15:01 | ESHP_ITS ---
<Statement entered by Radha Espinoza MD - 03/06/25 17:54> Ms. Miller is a 60 y/o female with PMH Gout, hiatal hernia s/p Mireya fundoplication (many years ago), diverticulitis complicated by colovesicular fistula s/p repair, and recent incisional ventral hernia (after colectomy) mesh repair (02/27) presented to the ED complaining of nausea, vomiting, abdominal pain and non-reducible ventral hernia at the incision site. Pt staes her symptoms started on tuesday and have gradually gotten worse. Pt also have not had a BM since surgery. ED contacted Dr. Crouch and plan is for surgery today. Patient was seen and examined by me personally. I have directly supervised and reviewed documentation by the team resident and agree with its findings. ------- Plan of care was discussed with the attending, Dr. Dana Espinoza, PGY-2 Documentation for date of: 03/06/25 HPI History of Present Illness History of present illness: Ms. Miller is a 60 y/o woman with PMH of gastric bypass, hiatal hernia s/p Mireya fundoplication, diverticulitis c/b colovesicular fistula s/p repair, and recent incisional ventral hernia (after colectomy) mesh repair (02/27) who presented to the ED on 03/06 with worsening abdominal pain and nonreducible ventral hernia to the left of incision site. Associated with nausea and one episode of vomiting, has not been able to eat since last Tuesday. Denies subjective fever, chills. Has not had a BM since surgery. Denies urinary sx. ED course: Afebrile, VSS. Labs significant for hgb 9.3, HCT 30.1, BUN 25, alk phos 380. Lactic acid WNL. Lipase 67. UA 1+ protein, 1+ ketones, 1+ bilirubin. EKG NSR HR 68, QTc 267, T wave inversion in aVR and V1. CT a/p showed high grade SBO, incarcerated midline ventral hernia containing small bowel. Consulted Miko in ED, plan for hernia repair revision. Given morphine 2 mg IV, zofran 4 mg IV, 1L LR, hydrocodone/Acetaminophen, promethazine 25 mg PO. PMHx: gout, anemia, diverticulosis/diverticulitis Allergies: Sulfa Home meds: Allopurinol 300 mg PO daily, oxycodone mg q6h since hernia repair SgHx: Gastric bypass, hiatal hernia s/p Mireya fundoplication, diverticulitis c/b colovesicular fistula s/p repair, and recent ventral hernia mesh repair (02/27), knee arthroscopy, hysteroscopy SHx: Occasional smoking, EtOH. Denies recreational drug use. Lives with . FHx: none reported Review of Systems Review of Systems Narrative Review of Systems: 14 point ROS negative other than HPI Exam Vital Signs Temp Pulse Resp BP Pulse Ox O2 Del Method 99.0 F 76 18 104/60 97 Room Air 03/06/25 12:49 03/06/25 12:49 03/06/25 12:49 03/06/25 12:49 03/06/25 12:49 03/06/25 12:49 Narrative Exam General: Tired appearing, no acute distress Eye: PERRL, EOMI, normal conjunctiva, no scleral icterus HENT: Normocephalic, atraumatic, normal hearing, moist oral mucosa Neck: Supple, non-tender, no JVD, no lymphadenopathy Lungs: Clear to auscultation bilaterally, non-labored respirations, symmetric chest rise, no use of accessory muscles Heart: Normal S1 and S2, no S3 or S4 appreciated. Normal rate and regular rhythm, no murmurs, rubs gallops, or edema. Peripheral pulses intact bilaterally, capillary refill brisk distally Abdomen: nonreducible hernia TTP left of the incision Musculoskeletal: Normal range of motion and strength, no tenderness or swelling Skin: Midline incision with stables, clean without erythema or edema Neurologic: Alert, awake and oriented x3. CN II-XII grossly intact. No focal neuro deficits. No signs of meningeal irritation noted. Psychiatric: Cooperative, appropriate mood and affect Results: Labs 03/07/25 05:31 03/07/25 05:31 Labs: Short CBC 03/06/25 Range/Units 09:57 WBC 7.7 (3.6-11.0) Thou/mm3 Hgb 9.3 L (12.0-16.0) g/dL Hct 30.1 L (36.0-46.0) % Plt Count 220 D (140-440) Thou/mm3 BMP 03/06/25 09:57 Sodium 139 Potassium 3.9 Chloride 104 Carbon Dioxide 20.4 BUN 25 H Creatinine 1.1 Glucose 84 Calcium 8.7 Liver Function 03/06/25 Range/Units 09:57 Total Bilirubin 0.4 (0.3-1.2) mg/dL AST 29 (0-34) U/L ALT 48 (10-49) U/L Alkaline Phosphatase 380 H (46-116) U/L Albumin 4.4 (3.5-5.0) gm/dL Urine 03/06/25 Range/Units 09:23 Urine Color Yellow (Lt Yel-Yel) Urine Clarity Clear (Clear/Hazy) Urine pH 5.5 (5.0-7.0) Ur Specific [place] 1.025 (1.001-1.035) Urine Protein 1+ A (Neg - Trace) Urine Glucose (UA) Negative (Negative) Quality Measures Quality Measures none Medications Home Medications and Allergies Home Medications ?Medication ?Instructions ?Recorded ?Confirmed ?Type allopurinol 300 mg tablet 300 mg PO DAILY Gout 5 03/06/25 History Allergies Allergy/AdvReac Type Severity Reaction Status Date / Time Sulfa (Sulfonamide Allergy HIVES Verified 03/06/25 08:51 Antibiotics) Visit Medications Acetaminophen (Acetaminophen 325 Mg Tablet) 650 mg PO Q6H PRN PRN Reason: Fever >100.3 Stop: 04/05/25 14:56 Acetaminophen (Acetaminophen 325 Mg Tablet) 650 mg PO Q6H PRN PRN Reason: PAIN SCALE 1-3 (mild Stop: 04/05/25 14:56 Heparin Sodium (Porcine) (Heparin Sod Inj 5000 Unit/Ml Vial) 5,000 unit SC Q8HR [place] Stop: 03/21/25 05:59 Morphine Sulfate (Morphine Sulf Inj 4 Mg/Ml Vial) 2 mg IVP Q4HR PRN PRN Reason: pain 4-8 Ondansetron HCl (Ondansetron Inj 2 Mg/Ml Inj 2 Ml) 4 mg IVP Q6H PRN; Protocol PRN Reason: NAUSEA OR VOMITING Stop: 04/05/25 14:56 Discontinued Medications Hydrocodone Bitart/Acetaminophen (Hydrocodone/Apap 5/325 Tablet) 1 tab PO X1 ONE Stop: 03/06/25 11:46 Last Admin: 03/06/25 11:51 Dose: 1 tab Lactated Ringer's (Lactated Ringers) 1,000 mls @ 999 mls/hr IV .Q1H1M ONE Stop: 03/06/25 10:44 Last Infusion: 03/06/25 11:12 Dose: Infused Lidocaine HCl (Lidocaine Jelly 2% (Urojet) 10 Ml Tube) 0 ml TOP X1 ONE Stop: 03/06/25 14:04 Morphine Sulfate (Morphine Sulf Inj 4 Mg/Ml Vial) 2 mg IVP X1 ONE Stop: 03/06/25 09:49 Last Admin: 03/06/25 09:58 Dose: 2 mg Ondansetron HCl (Ondansetron Inj 2 Mg/Ml Inj 2 Ml) 4 mg IVP X1 ONE; Protocol Stop: 03/06/25 09:53 Last Admin: 03/06/25 09:59 Dose: 4 mg Promethazine HCl (Promethazine Hcl 25 Mg Tablet) 25 mg PO X1 ONE Stop: 03/06/25 11:47 Last Admin: 03/06/25 11:52 Dose: 25 mg Assessment & Plan Plan Ms. Miller is a 60 y/o woman with PMH of gastric bypass, hiatal hernia s/p Mireya fundoplication, diverticulitis c/b colovesicular fistula s/p repair, and recent ventral hernia mesh repair (02/27) who presented to the ED on 03/06 with worsening abdominal pain and nonreducible ventral hernia to the left of incision site. Admitted for revision of midline ventral incisional hernia repair. #Incarcerated small bowel in a recurrent incisional hernia #SBO Incisional hernia repair 02/27/25, pt has worsening abdominal pain, N/V, and anorexia since surgery. No BM since surgery CT a/p: showed 9.5x4.9 cm incarcerated small bowel in midline ventral hernia Plan: - Consulted Dr. Crouch, plan for surgical repair - NPO - Pain management with Tylenol PRN, morphine 2 mg q4h PRN #Gout Plan: - Allopurinol 300 mg PO daily (home med) Checklist Dispo: Pending surgical repair with Dr. Crouch Diet: NPO pending surgery Bowel Reg: doc/senna PRN VTE ppx: heparin subQ GI ppx: pantoprazole 40 mg IV daily Pain mgmt: Tylenol PRN, morphine 2 mg q4h PRN Code status: full Plan discussed with Dr. Alex Espinoza and Dr. Dana Tejeda MD PGY1 Attending Provider Attestation/Addendum I, Nicki Cortez DO, attest that I was physically present for the dias portions of the service and evaluated the patient with the resident and I reviewed and discussed the case with the resident and agree with the resident's findings and plans of care as documented above Patient is a 60-year-old female with past medical history of gastric bypass, hiatal hernia status post Mireya fundoplication, diverticulitis and recent ventral hernia repair who was brought to ED due to worsening abdominal pain. Patient was found to have a nonreducible ventral hernia. A CT abdomen and pelvis was done showing development of a high-grade small bowel obstruction due to incarcerated small bowel containing ventral hernia. Surgery was called from ED. Plans to take patient to the OR as soon as possible. Patient reports nausea and vomiting for nearly a week. Will have patient n.p.o. at this time. She denies any fevers or chills. Will admit patient to med/surg for further management of incarcerated hernia. Continue with pain control as needed.
--- NOTE | 2025-03-06 15:09 | PD.EDADDENDU ---
Emergency Room Addendum Addendum Narrative: Procedure Details The patient was positioned appropriately in a comfortable manner, with the arm placed in a relaxed, extended position to allow optimal visualization of the venous anatomy. Equipment Used: Ultrasound machine and probe 22G IV ChloraPrep Procedure: The skin over the intended insertion site was cleaned and prepped with Chlorhexidine. The ultrasound probe was placed on the patient?s right AC, and real-time imaging was used to identify a suitable vein. The vein was visualized in both the short and long axes, confirming its patency and appropriate size for catheter placement. A 22G IV catheter was inserted under continuous ultrasound guidance, with confirmation of correct needle placement within the vein. Blood flashback was observed in the catheter, confirming successful venous access. The catheter was secured with sterile dressing. The IV line was flushed with saline. The patient tolerated the procedure well with no immediate complications. No signs of extravasation or hematoma were noted. -Dr. Huynh
--- NOTE | 2025-03-06 15:24 | PD.SURCONS ---
HPI Consult details History of present illness: 60F who had an incisional hernia from colectomy done at in 2023 s/p elective hernia repair with mesh 02/27/25 who presented to ER due to persistent pain and nausea. Pt reported symptoms had been steady since surgery and she has not had a BM since then. I examined her in clinic and advised her to seek care in ER as she had a palpable bulge to the left of the incision which CT confirmed represents small bowel Review of Systems Review of Systems ROS Unobtainable: All systems reviewed & no additional complaints except as documented Meds Home Medications and Allergies Home Medications ?Medication ?Instructions ?Recorded ?Confirmed ?Type allopurinol 300 mg tablet 300 mg PO DAILY Gout 06/26/24 03/06/25 History Allergies Allergy/AdvReac Type Severity Reaction Status Date / Time Sulfa (Sulfonamide Allergy HIVES Verified 03/06/25 08:51 Antibiotics) Exam Vital Signs Temp Pulse Resp BP Pulse Ox O2 Del Method 99.0 F 76 18 104/60 97 Room Air 03/06/25 12:49 03/06/25 12:49 03/06/25 12:49 03/06/25 12:49 03/06/25 12:49 03/06/25 12:49 Constitutional Constitutional: no acute distress Routine Respiratory Exam Respiratory: Present no resp distress Routine Abdominal Exam Abdominal: Present soft, tenderness (moderate tenderness ), distended (mild distention) and hernia (palpable bulge at left aspect of incision); Absent rebound Results Results: Laboratory Laboratory results: results reviewed Results: Imaging CT scan - abdomen: report reviewed and image reviewed Assessment & Plan Plan 60F s/p incisional hernia repair 02/27/25 presenting with signs and symptoms of incarcerated small bowel in a recurrent hernia. I explained benefits/risks of surgery which may require small bowel resection and/or replacement of mesh. All questions were answered and pt is agreeable to proceeding
--- NOTE | 2025-03-06 17:45 | PD.SUROPNT ---
Date of Procedure 03/06/25 Pre Op Diagnosis Small bowel obstruction due to incarcerated ventral hernia Post Op Diagnosis Same Procedure Reduction of incarcerated small bowel, placement of mesh Findings Loop of small bowel herniated through the left lateral aspect of the previously placed mesh where sutures had torn through. Small bowel was viable, additional mesh placed Procedure Description After discussion of risks and benefits, pt was brought to OR, SCDs were placed and general anesthesia was induced. She received preoperative antibiotics and was prepped and draped in the usual sterile fashion. After timeout the previous midline incision was reopened using Adson forceps and scissors. The subcutaneous tissue was bluntly divided with hemostats and a loop of small bowel was encountered above the mesh. The mesh was inspected circumferentially and noted to have a defect at the left lateral and inferior portion, where it seems that the previously placed prolene sutures had torn through. The small bowel was viable so it was reduced back into the abdomen. It appeared that simply replacing the sutures might lead to too much tension and a recurrence of this herniation so we instead opted to place an additional mesh through this defect. We used a ventralex 1.7 hernia patch and sutured it to the fascia laterally, inferiorly and superiorly with 2-0 prolene interrupted sutures and also sutured it to the previously placed mesh medially. The meshes were inspected circumferentially to ensure that there were no gaps through which abdominal contents could herniate and there were not. The wound was irrigated and no bleeding was observed. Counts were confirmed correct. The subcutaneous tissue was infiltrated with 0.5% marcaine for a total of 30cc. The skin was closed in two layers with 2-0 vicryl interrupted followed by 3-0 vicryl interrupted sutures. The skin was then reinforced with elina and covered with telfa, gauze and tegaderm. Pt was extubated and brought to PACU in stable condition Pathology / specimen None Estimated Blood Loss 25 Surgeon Emeli Crouch MD Surgical Staff Operation Date: 03/06/25 17:00 Case Staff Anesthesiologist: Haile Jarquin Assisting Surgeon: Linda Stevenson RN First Assistant: Candace Srinivasan
--- NOTE | 2025-03-06 17:46 | SUR.PHASEI ---
1746 Patient arrived to recovery resting comfortably in the [facility], sleeping and able to arouse with verbal prompting, then drifts back to sleep, on oxygen 4L via nasal cannula, breathing unlabored, vital signs stable, denies pain and nausea, dressing intact to abdomen; elina, telfa, gauze, tegaderm, no bleeding noted, report received from Ivan ZAPATA and Dr. Jarquin
[2025-03-06] MEDS: fentaNYL CIT INJ 50 mCg/ML AMP 2ML IVP ×2 (18:19→18:28)
--- NOTE | 2025-03-06 19:33 | SUR.PHASEI ---
193 Patient transported via gurney to room 374 without incident, patient able to ambulate from [facility] to bed with stand-by assist, patient family awaiting at bedside, Kari ZAPATA promptly in patients room
[2025-03-06] MEDS: oxyCODONE HCL 5 MG IR TAB PO (19:51)
[2025-03-07] VITALS: BP 110/67; PULSE 65; RESP 17; TEMP 36; O2SAT 98
[2025-03-07] MEDS: oxyCODONE HCL 5 MG IR TAB PO ×3 (02:20→11:50)
--- NOTE | 2025-03-07 02:43 | PC.NURSE ---
Pt got up to the toilet to void, tolerated well.
[2025-03-07 04:00] VITALS: BP 92/57; PULSE 60; RESP 17; TEMP 36; O2SAT 93
[2025-03-07] MEDS: HEPARIN SOD INJ 5000 UNIT/ML VIAL SC (05:15)
[2025-03-07 06:22] LABS: Basophils # (Auto) 0.1 Thou/mm3 (0.0-0.2); Basophils % (Auto) 1 % (0-2.5); Eosinophils # (Auto) 0.0 Thou/mm3 (0.0-0.5); Eosinophils % (Auto) 0 % (0-10); Hematocrit 30.0 % (36.0-46.0); Hemoglobin 9.2 g/dL (12.0-16.0); Immature Granulocytes Auto 0.33 Thou/mm3 (0.00-0.00); Lymphocytes # (Auto) 0.9 Thou/mm3 (1.0-4.8); Lymphocytes % (Auto) 10 % (10-50); Mean Corpuscular HGB Conc 30.7 g/dl (31.0-37.0); Mean Corpuscular Hemoglobin 26.7 pg (25.0-35.0); Mean Corpuscular Volume 87 fL (80-100); Monocytes # (Auto) 0.6 Thou/mm3 (0.0-0.8); Monocytes % (Auto) 6 % (0-12); Neutrophils # (Auto) 7.4 Thou/mm3 (1.8-7.7); Neutrophils % (Auto) 80 % (37-80); Nucleated Red Blood Cell # 0.00 Thou/mm3 (0.00-0.00); Nucleated Red Blood Cell % 0 /100 WBC (0); Platelet Count 237 Thou/mm3 (140-440); RDW Standard Deviation 48.0 fL (36.4-46.3); Red Blood Count 3.44 Miln/mm3 (4.00-5.20); White Blood Count 9.2 Thou/mm3 (3.6-11.0)
[2025-03-07 07:03] LABS: Alanine Aminotransferase 35 U/L (10-49); Albumin, Serum 3.9 gm/dL (3.5-5.0); Albumin/Globulin Ratio 2.1 (1.2-2.2); Alkaline Phosphatase 321 U/L (46-116); Anion Gap 12 (7-16); Aspartate Amino Transferase 21 U/L (0-34); BUN/Creatinine Ratio 18 Ratio (12-20); Bilirubin,Total 0.3 mg/dL (0.3-1.2); Blood Urea Nitrogen 20 mg/dL (9-23); Calcium 8.6 mg/dL (8.3-10.6); Calcium (Corrected) 8.7 mg/dL (8.5-10.1); Carbon Dioxide 19.8 mMol/L (20.0-31.0); Chloride 107 mMol/L (98-107); Creatinine (Component) 1.1 mg/dL (0.6-1.3); Estimated Creatinine Clearance 61.3 mL/min (>60); Globulin 1.9 gm/dL (2.3-3.5); Glucose 103 mg/dL (74-106); Magnesium 1.9 mg/dL (1.6-2.6); Osmolality,Calculated 280 (275-295); Phosphorous 5.2 mg/dL (2.4-5.1); Potassium 4.5 mMol/L (3.4-5.1); Sodium 139 mMol/L (136-145); Total Protein 5.8 gm/dL (5.7-8.2); eGFR 58 See Note
--- NOTE | 2025-03-07 09:09 | ESDS_ITS ---
<Statement entered by Nicki Cortez DO - 03/08/25 07:25> I, Nicki Cortez DO, attest that I was physically present for the dias portions of the service and evaluated the patient with the resident and I reviewed and discussed the case with the resident and agree with the resident's findings and plans of care as documented above Planned Discharge Date 03/07/25 DS: Providers Provider Date of admission: 03/06/25 14:58 Primary care physician: Physician No Primary/Family Admitting Provider: Nicki Cortez DO Attending Provider on Admission: Nicki Cortez DO Consults: 03/06/25 14:09 Consult to General Surgery Routine Comment: Consulting Provider: Emeli Crouch Attending Provider on DC: Lita Tejeda MD Discharging Provider: Lita Tejeda MD DS: Diagnosis Problem List Completed Was Problem List Reviewed/Reconciled?: Yes Hospital Course Hospital Course Hospital course: Hospital Course Ms. Miller is a 60 y/o woman with PMH of gastric bypass, hiatal hernia s/p Mireya fundoplication, diverticulitis c/b colovesicular fistula s/p repair, and recent incisional ventral hernia (after colectomy) mesh repair (02/27) who presented to the ED on 03/06 with worsening abdominal pain and nonreducible ventral hernia to the left of incision site. Associated with nausea and one episode of vomiting, has not been able to eat since last Tuesday. Had not had a BM since surgery. Patient underwent revision of ventral hernia with Dr. Crouch 03/06 - mesh had defect at left lateral and inferior portion with sutures torn through. Small maribel wel was viable and reduced. More mesh was added and surgery was completed without complications. Patient is tolerating PO intake and had two bowel movements since surgery, saturating on room air, pain is well controlled with oral meds and cleared for discharge from surgery. Patient is hemodynamically stable and medically cleared for discharge. Diagnoses #Incarcerated small bowel in a recurrent incisional hernia - resolved #SBO - resolved #Gout Discharge Instructions - Follow up with PCP within 1 week of discharge, if you do not have a primary care physician you can come see us at the [facility] by calling [phone] - Follow up with Dr. Crouch on Tuesday, 11/10 - Continue rest of medications as previously prescribed - Return to the ED or call EMS if symptoms return and/or worsen Lita Tejeda MD PGY1 Time Spent with Patient Time attestation: Total time spent providing and/or coordinating discharge services: Time spent: Greater than 30 minutes Exam Vital Signs Temp Pulse Resp BP Pulse Ox O2 Del Method O2 Flow Rate 96.8 F 60 17 92/57 L 93 L Room Air 2 03/07/25 04:00 03/07/25 04:00 03/07/25 04:00 03/07/25 04:00 03/07/25 04:00 03/07/25 04:00 03/06/25 19:16 Narrative Exam General: Lying in bed eating breakfast Eye: PERRL, EOMI, normal conjunctiva, no scleral icterus HENT: Normocephalic, atraumatic, normal hearing, moist oral mucosa Neck: Supple, non-tender, no JVD, no lymphadenopathy Lungs: Clear to auscultation bilaterally, non-labored respirations, symmetric chest rise, no use of accessory muscles Heart: Normal S1 and S2, no S3 or S4 appreciated. Normal rate and regular rhythm, no murmurs, rubs gallops, or edema. Peripheral pulses intact bilaterally, capillary refill brisk distally Abdomen: TTP around surgical incision, covered by bandage, no surrounding erythema or edema Musculoskeletal: Normal range of motion and strength, no tenderness or swelling Skin: Midline incision covered by bandage, no surrounding erythema or edema Neurologic: Alert, awake and oriented x3. CN II-XII grossly intact. No focal matthew ro deficits. No signs of meningeal irritation noted. Psychiatric: Cooperative, appropriate mood and affect Discharge Plan Plan Patient Disposition: HOME (Self Care) Patient condition on transfer: Stable Care Plan Goals: - Follow up with PCP within 1 week of discharge, if you do not have a primary care physician you can come see us at the [facility] by calling [phone] - Follow up with Dr. Crouch on Tuesday, 03/11 - Continue rest of medications as previously prescribed - Return to the ED or call EMS if symptoms return and/or worsen Prescriptions/Referrals Prescriptions/Med Rec: Continued oxycodone 5 mg tablet 5 mg PO Q4H MDD 6 tabs PRN (Reason: pain) Qty: 60 0RF Rx Instructions: Take 1 tablet as needed every 4 hours for moderate to severe pain allopurinol 300 mg tablet 300 mg PO DAILY Referrals: No Primary/Family,Physician [Primary Care Provider] Patient/Caregiver Discharge Instructions Print Language: Bengali Stand Alone Forms: Alecia Award Info., Patient Portal Info Letter Discharge Order Discharge Orders: Discharge (Routine); Ordered 03/07/25 Ordered By: Radha Espinoza Quality Discharge Quality Measures VTE prophylaxis
[2025-03-07 10:53] VITALS: BP 126/81; PULSE 66; RESP 12; TEMP 36.5; O2SAT 97
[2025-03-07] MEDS: ACETAMINOPHEN 325 MG TABLET 650 MG PO (10:53)
[2025-03-07] MEDS: FLUCONAZOLE 100 MG TABLET 200 MG PO (11:43)
--- NOTE | 2025-03-18 13:55 | PD.ANESPROG ---
Documentation for date of: 03/18/25 POST ANESTHESIA NOTE: Patient had GETA for hernia repair on 03/06/25. I just called her number for follow up but no answer. Haile Jarquin MD Anesthesia Progress Note Progress Note Most recent Vital Signs: Last Vital Signs Temp 97.7 F 03/07/25 10:53 Pulse 66 03/07/25 10:53 Resp 12 03/07/25 10:53 BP 126/81 03/07/25 10:53 Pulse Ox 97 03/07/25 10:53 O2 Del Method Room Air 03/07/25 04:00 O2 Flow Rate 2 03/06/25 19:16
== END 2025-03-07 12:29 | disposition home or self-care (01) | DRG 355 ==
LOC: SERX 14:32 → S3SX 21:42 → SERHOLD 03-07 06:09 → S3SX 03-07 06:10
PROVIDERS: Nurse Practitioner Primary Care; Surgery; Admitting Provider Internal Medicine; Emergency Provider Emergency Medicine; Visit Provider Internal Medicine
DX: K43.6 Other and unspecified ventral hernia with obstruction, without gangrene (principal); M10.9 Gout, unspecified; Z98.84 Bariatric surgery status; Z79.899 Other long term (current) drug therapy; Z88.2 Allergy status to sulfonamides
CPT/HCPCS: 36415; 74176; 80053; 81001; 83605; 83690; 83735; 84100; 85025; 87081; 93005; 96361; 96372; 96374; 96375; 99284; A4649; C1781; J0131; J0694; J1100; J1644; J2270; J2405; J2470; J2704; J3010; J3490; J7120; A9270; J1805

== ENCOUNTER 2025-03-11 09:50 | Outpatient (AMB) | payer OTHER, SELFPAY ==
--- NOTE | 2025-03-11 10:06 | GSCOFFNT_ITS ---
[facility] - [facility] 03/11/25 10:07 Height 1.63 m Height Method Stated Weight 88.677 kg Weight Measurement Method Standing Scale BMI 33.3 BP 116/78 Blood Pressure Source Automatic Cuff Blood Pressure Location Right Upper Arm Position Sitting Respiration 18 Pulse 72 Pulse Source Monitor Temp 97.2 F Temp Source Temporal Artery Scan Pulse Oximetry (%) 98 Oxygen Delivery Method Room Air Med/Allergies Allergies & Medications Allergies Sulfa (Sulfonamide Antibiotics) Allergy (Verified 03/11/25 10:07) HIVES Medication Reconciliation allopurinol 300 mg tablet 300 mg PO DAILY Gout 06/26/24 [History Confirmed 03/11/25] oxycodone 5 mg tablet 5 mg PO Q4H PRN pain #60 tabs 03/06/25 [Rx Confirmed 03/11/25] MA Intake Visit Data Collection New Patient or Established: Established Patient (seen at [facility] within 3 years) Seen by Clinical Staff ONLY (RN/MA): No Reason for Visit:: FOLLOW UP ER VISIT Pain Present Currently: Yes Pain Location: Abdomen Pain scale:: 5 Pain Scale Used: Barnett-Pastor/Numerical Algorithm Design Engineer Required: No PCP or OBGYN visit in last 3 months: Yes Hx Now: No Do You Feel Safe at Home: Yes Authorities Contacted: N/A Smoking Status Smoking Status: Light (< 1 pack/day) Cessation Counseling Provided: TACHO was advised that quitting smoking is the single most important factor to protect the health of themselves and their family. Discussed the benefits of quitting smoking with patient. Encouraged patient to quit smoking and provided Cessation assistance materials and resources. Tobacco Use: Nicotine Years smoked: 10 Are you interested in quitting?: No Would you like additional Smoking Cessation Counseling?: No Immunization / Flu Flu Vaccine in the Last 12 Months: No Flu Vaccine Exclusion Criteria: No Exclusion Criteria Past Medical History Past Medical History NEUROLOGIC: Negative Neurological Disorders or Seizures CARDIAC: Negative Cardiac Disorders, Congestive Heart Failure or Hypotension RESPIRATORY: Positive Asthma (allergy induced asthma as a child) and Bronchitis; Negative Chronic Obstructive Pulmonary Disease (COPD) GASTROINTESTINAL: Positive Gastrointestinal Disorders, Diverticulitis and Obesity; Negative Hepatitis GENITOURINARY: Positive Genitourinary Disorders, Renal Disease and Kidney Stones (none now) REPRODUCTIVE: Positive Previous Pregnancies (2) MUSCULOSKELETAL: Positive Arthritis and Gout ENDOCRINE: Negative Endocrine Disorders, Diabetes Mellitus Type 1 or Diabetes Mellitus Type 2 HEMATOLOGIC: Positive Blood Disorders and Anemia; Negative Sickle Cell Disease PSYCHO/SOCIAL: Positive Anxiety OTHER HISTORY: Positive Hospitalization (surgery, ICU admission x2 recently, kidney disease), Blood Transfusions and Chicken Pox; Negative Autoimmune Disease, Down Syndrome, Developmental Delay, Shingles, Falls, Blood Transfusion Reaction, Anesthesia Reactions, MRSA, Clostridium Difficile or Cancer Family History FAMILY HISTORY: Positive Family Cardiac Disorders, Family Cancer and Family Surgery; Negative Family Psychiatric Problems, Family Respiratory Disorders, Family Gastrointestinal Problems or Family Anesthesia Reaction Surgical History SURGICAL: Positive Tonsillectomy, Abdominal Surgery, Gastric Bypass Surgery, Bowel Surgery, Hysterectomy (ovaries still in place.) and Section Social History SMOKING STATUS: Smoking status: Light (< 1 pack/day) SECOND HAND EXPOSURE: second hand exposure: No (smoking occassionally) ALCOHOL: Alcohol Intake: Current ALCOHOL FREQUENCY: Alcohol Intake Frequency: holidays/special occasions only HOUSING: Housing: House LIVES WITH: Lives With: Spouse Travel Risk Travel Hx Recent Travel: No HPI HPI Narrative 60F who presented with symptomatic incisional hernia s/p elective repair with mesh on 02/27, course complicated by recurrence with incarcerated small bowel s/p urgent reduction and repair with additional mesh on 03/06/25 here for planned follow up. Pt reports feeling much better overall, she is taking Percocet just once a day and even went a full day without it. She did have some nausea at first but this has improved, and she is not able to pass gas (although she finds it painful) and has been having bowel movements. Patient also notes that since last week she has an impaired sense of taste or smell, she denies ever having the symptoms before but noticed that she has had to use more spices in her food and feels like she really only tastes the texture ROS Review of Systems Systems Reviewed: All systems reviewed, normal except as documented Objective/Exam General General Appearance: alert, cooperative and well groomed Resp Respiratory exam: Absent respiratory distress Abdominal Abdominal exam: Present soft and incision (midline incision with elina intact, minimal bruising. mild swelling to the left of the incision, significantly improved compared to prior exam, no sign of recurrent hernia); Absent distention or tenderness Assessment & Plan Diagnosis / Problem List (1) Incisional hernia: Status: Acute Qualifiers: Obstruction and gangrene presence: without obstruction or gangrene Qualified Code(s): K43.2 - Incisional hernia without obstruction or gangrene Assessment & Plan: 60F who presented with symptomatic incisional hernia s/p elective repair with mesh on 02/27, course complicated by recurrence with incarcerated small bowel s/p urgent reduction and repair with additional mesh on 03/06/25 here for planned follow up. Pt is gradually recovering with improved pain; I suggested maalox for her gas pains as well as zinc supplementation for her impaired sense of taste and smell. All questions were answered and pt will follow up in 1 week Office Procedures GNS Level of Care Nursing/Assessment Patient Status: Established Patient Nursing Assessment/Reassesment: Medication Reconciliation, Update PMH in EMR and Vital Signs Coordination of Care: Complex Care and Chronic Disease 1-5, Education Complex Pt/Fam, Consent,records obtained, informed consent, Results/Orders obtained and Staff clarify orders Established Patient Charge Established Patient Point Assignment: 95 Established Patient Point Charge: EP Level 3 (80-115) Patient Portal Questionaires Social History Living Situation History Housing: House Tobacco History Smoking Status: Light (< 1 pack/day) Second Hand Smoke Exposure: No (smoking occassionally) Alcohol History Alcohol Intake: Current Alcohol Intake Frequency: holidays/special occasions only Domestic Abuse History Do You Feel Safe at Home: Yes Review of Systems Report any current symptoms Only answer those that you have currently: Past Medical History Past Medical History Have you ever been diagnosed with any of the following: Neurological Problems Seizures: No Cardiology Problems Congestive Heart Failure: No Hypotension: No Respiratory Problems Chronic Obstructive Pulmonary Disease (COPD): No Asthma: Yes (allergy induced asthma as a child) Bronchitis: Yes Stomache/Intestinal Problems Hepatitis: No Diverticulitis: Yes Obesity: Yes Genital/Urinary Problems Renal Disease: Yes Kidney Stones: Yes (none now) Reproductive Problems Previous Pregnancies: Yes (2) Musculoskeletal Problems Arthritis: Yes Gout: Yes Endocrine Problems Diabetes Mellitus Type 1: No Diabetes Mellitus Type 2: No Blood Problems Anemia: Yes Sickle Cell Disease: No Psychologic Problems Anxiety: Yes Other Problems Hospitalization: Yes (surgery, ICU admission x2 recently, kidney disease) Autoimmune Disease: No Down Syndrome: No Developmental Delay: No Shingles: No Falls: No Blood Transfusions: Yes Blood Transfusion Reaction: No Anesthesia Reactions: No MRSA: No Chicken Pox: Yes Clostridium Difficile: No Cancer: No Surgical History Hysterectomy: Yes (ovaries still in place.)
[2025-03-11 10:07] VITALS: BP 116/78; PULSE 72; RESP 18; TEMP 36.2; O2SAT 98; BMI 33.3
== END 2025-03-11 10:23 | disposition home or self-care (01) ==
LOC: HODSRG 09:50
PROVIDERS: PCP Family Medicine; Referring Provider Family Medicine; Supervising Provider Surgery; Visit Provider Surgery
DX: K43.2 Incisional hernia without obstruction or gangrene (principal); Z48.89 Encounter for other specified surgical aftercare
CPT/HCPCS: 99213; G0463

== ENCOUNTER 2025-03-18 13:52 | Outpatient (AMB) | payer OTHER, SELFPAY ==
[2025-03-18 14:23] VITALS: BP 118/81; PULSE 75; RESP 18; TEMP 36.4; O2SAT 96; BMI 34.2
--- NOTE | 2025-03-18 14:23 | PD.GSCLVISIT ---
[facility] - [facility] 03/18/25 14:23 Height 1.63 m Height Method Stated Weight 90.889 kg Weight Measurement Method Standing Scale BMI 34.2 BP 118/81 Blood Pressure Source Automatic Cuff Blood Pressure Location Right Upper Arm Position Sitting Respiration 18 Pulse 75 Pulse Source Monitor Temp 97.5 F Temp Source Temporal Artery Scan Pulse Oximetry (%) 96 Oxygen Delivery Method Room Air Med/Allergies Allergies & Medications Allergies Sulfa (Sulfonamide Antibiotics) Allergy (Verified 03/18/25 14:25) HIVES Medication Reconciliation allopurinol 300 mg tablet 300 mg PO DAILY Gout 06/26/24 [History Confirmed 03/18/25] oxycodone 5 mg tablet 5 mg PO Q4H PRN pain #60 tabs 03/06/25 [Rx Confirmed 03/18/25] lactulose 10 gram oral packet 20 g PO BID PRN constipation #30 ea 03/18/25 [Rx] oxycodone 5 mg tablet 5 mg PO Q4H PRN pain #60 tabs 03/18/25 [Rx] MA Intake Visit Data Collection New Patient or Established: Established Patient (seen at [facility] within 3 years) Seen by Clinical Staff ONLY (RN/MA): No Reason for Visit:: 1 WEEK FOLLOW UP Pain Present Currently: Yes Pain Location: Abdomen Pain scale:: 6 Pain Scale Used: Barnett-Pastor/Numerical Clinical Molecular Geneticist Required: No PCP or OBGYN visit in last 3 months: Yes Hx Now: No Do You Feel Safe at Home: Yes Authorities Contacted: N/A Smoking Status Smoking Status: Light (< 1 pack/day) Cessation Counseling Provided: TACHO was advised that quitting smoking is the single most important factor to protect the health of themselves and their family. Discussed the benefits of quitting smoking with patient. Encouraged patient to quit smoking and provided Cessation assistance materials and resources. Tobacco Use: Nicotine Years smoked: 20 Are you interested in quitting?: No Immunization / Flu Flu Vaccine in the Last 12 Months: No Flu Vaccine Exclusion Criteria: No Exclusion Criteria Past Medical History Past Medical History NEUROLOGIC: Negative Neurological Disorders or Seizures CARDIAC: Negative Cardiac Disorders, Congestive Heart Failure or Hypotension RESPIRATORY: Positive Asthma (allergy induced asthma as a child) and Bronchitis; Negative Chronic Obstructive Pulmonary Disease (COPD) GASTROINTESTINAL: Positive Gastrointestinal Disorders, Diverticulitis and Obesity; Negative Hepatitis GENITOURINARY: Positive Genitourinary Disorders, Renal Disease and Kidney Stones (none now) REPRODUCTIVE: Positive Previous Pregnancies (2) MUSCULOSKELETAL: Positive Arthritis and Gout ENDOCRINE: Negative Endocrine Disorders, Diabetes Mellitus Type 1 or Diabetes Mellitus Type 2 HEMATOLOGIC: Positive Blood Disorders and Anemia; Negative Sickle Cell Disease PSYCHO/SOCIAL: Positive Anxiety OTHER HISTORY: Positive Hospitalization (surgery, ICU admission x2 recently, kidney disease), Blood Transfusions and Chicken Pox; Negative Autoimmune Disease, Down Syndrome, Developmental Delay, Shingles, Falls, Blood Transfusion Reaction, Anesthesia Reactions, MRSA, Clostridium Difficile or Cancer Family History FAMILY HISTORY: Positive Family Cardiac Disorders, Family Cancer and Family Surgery; Negative Family Psychiatric Problems, Family Respiratory Disorders, Family Gastrointestinal Problems or Family Anesthesia Reaction Surgical History SURGICAL: Positive Tonsillectomy, Abdominal Surgery, Gastric Bypass Surgery, Bowel Surgery, Hysterectomy (ovaries still in place.) and Section Social History SMOKING STATUS: Smoking status: Light (< 1 pack/day) SECOND HAND EXPOSURE: second hand exposure: No (smoking occassionally) ALCOHOL: Alcohol Intake: Current ALCOHOL FREQUENCY: Alcohol Intake Frequency: holidays/special occasions only HOUSING: Housing: House LIVES WITH: Lives With: Spouse Travel Risk Travel Hx Recent Travel: No HPI HPI Narrative 60F who presented with symptomatic incisional hernia s/p elective repair with mesh on 02/27, course complicated by recurrence with incarcerated small bowel s/p urgent reduction and repair with additional mesh on 03/06/25 here for planned follow up. Pt reports feeling ok overall but she still does have discomfort especially to the left side of the incision. Her nausea has improved and she is eating and passing gas, though still having constipation. She did have a BM today but feels she has to strain, would like to try lactulose which has helped her in the past ROS Review of Systems Systems Reviewed: All systems reviewed, normal except as documented Objective/Exam General General Appearance: alert, cooperative and well groomed Resp Respiratory exam: Absent respiratory distress Abdominal Abdominal exam: Present soft, distention (swelling towards the left lower aspect of the incision, no overlying skin changes) and tenderness (mild tenderness to left of incision) Assessment & Plan Diagnosis / Problem List (1) Incisional hernia: Status: Acute Qualifiers: Obstruction and gangrene presence: without obstruction or gangrene Qualified Code(s): K43.2 - Incisional hernia without obstruction or gangrene Assessment & Plan: 60F who presented with symptomatic incisional hernia s/p elective repair with mesh on 02/27, course complicated by recurrence with incarcerated small bowel s/p urgent reduction and repair with additional mesh on 03/06/25 here for planned follow up. On exam there is an area of swelling at the left aspect of the incision, where she previously had a recurrence and where she now has two separate meshes sutured to each other; I explained that this may already represent another recurrence however as there are no signs of incarceration I would not pursue any intervention at the moment. I conferred with my colleague who assisted in the surgery and we agreed to hold off on any imaging (unless of course her symptoms of incarceration return). Will prescribe lactulose and oxycodone PRN and will follow up in 4 weeks Office Procedures GNS Level of Care Nursing/Assessment Patient Status: Established Patient Nursing Assessment/Reassesment: Medication Reconciliation, Update PMH in EMR and Vital Signs Coordination of Care: Complex Care and Chronic Disease 1-5, Education Complex Pt/Fam, Consent,records obtained, informed consent, Results/Orders obtained and Staff clarify orders Established Patient Charge Established Patient Point Assignment: 95 Established Patient Point Charge: EP Level 3 (80-115) Patient Portal Questionaires Social History Living Situation History Housing: House Tobacco History Smoking Status: Light (< 1 pack/day) Second Hand Smoke Exposure: No (smoking occassionally) Alcohol History Alcohol Intake: Current Alcohol Intake Frequency: holidays/special occasions only Domestic Abuse History Do You Feel Safe at Home: Yes Review of Systems Report any current symptoms Only answer those that you have currently: Past Medical History Past Medical History Have you ever been diagnosed with any of the following: Neurological Problems Seizures: No Cardiology Problems Congestive Heart Failure: No Hypotension: No Respiratory Problems Chronic Obstructive Pulmonary Disease (COPD): No Asthma: Yes (allergy induced asthma as a child) Bronchitis: Yes Stomache/Intestinal Problems Hepatitis: No Diverticulitis: Yes Obesity: Yes Genital/Urinary Problems Renal Disease: Yes Kidney Stones: Yes (none now) Reproductive Problems Previous Pregnancies: Yes (2) Musculoskeletal Problems Arthritis: Yes Gout: Yes Endocrine Problems Diabetes Mellitus Type 1: No Diabetes Mellitus Type 2: No Blood Problems Anemia: Yes Sickle Cell Disease: No Psychologic Problems Anxiety: Yes Other Problems Hospitalization: Yes (surgery, ICU admission x2 recently, kidney disease) Autoimmune Disease: No Down Syndrome: No Developmental Delay: No Shingles: No Falls: No Blood Transfusions: Yes Blood Transfusion Reaction: No Anesthesia Reactions: No MRSA: No Chicken Pox: Yes Clostridium Difficile: No Cancer: No Surgical History Hysterectomy: Yes (ovaries still in place.)
== END 2025-03-18 14:40 | disposition home or self-care (01) ==
LOC: HODSRG 13:52
PROVIDERS: PCP Family Medicine; Referring Provider Family Medicine; Supervising Provider Surgery; Visit Provider Surgery
DX: Z48.815 Encounter for surgical aftercare following surgery on the digestive system (principal); E66.9 Obesity, unspecified; Z68.34 Body mass index [BMI] 34.0-34.9, adult; F17.210 Nicotine dependence, cigarettes, uncomplicated; Z71.6 Tobacco abuse counseling
CPT/HCPCS: 99213; G0463

== ENCOUNTER 2025-04-22 10:08 | Outpatient (AMB) | payer OTHER, SELFPAY ==
--- NOTE | 2025-04-22 10:23 | PD.GSCLVISIT ---
Vital Signs - [facility] 04/22/25 10:51 Height 1.63 m Height Method Measured Weight 90.889 kg Weight Measurement Method Standing Scale BMI 34.2 BP 135/86 H Blood Pressure Source Automatic Cuff Blood Pressure Location Left Upper Arm Position Sitting Respiration 18 Pulse 88 Pulse Source Monitor Temp 97.4 F Temp Source Temporal Artery Scan Pulse Oximetry (%) 97 Oxygen Delivery Method Room Air Med/Allergies Allergies & Medications Allergies Sulfa (Sulfonamide Antibiotics) Allergy (Verified 04/22/25 10:52) HIVES Medication Reconciliation allopurinol 300 mg tablet 300 mg PO DAILY Gout 06/26/24 [History Confirmed 04/22/25] oxycodone 5 mg tablet 5 mg PO Q4H PRN pain #60 tabs 03/06/25 [Rx Confirmed 04/22/25] oxycodone 5 mg tablet 5 mg PO Q4H PRN pain #60 tabs 03/18/25 [Rx Confirmed 04/22/25] lactulose 20 gram oral packet 20 g PO BID PRN constipation #30 ea 04/01/25 [Rx Confirmed 04/22/25] MA Intake Visit Data Collection New Patient or Established: Established Patient (seen at [facility] within 3 years) Seen by Clinical Staff ONLY (RN/MA): No Reason for Visit:: 4 WEEK F/U INCISIONAL HERNIA Pain Present Currently: No Pain Scale Used: Barnett-Pastor/Numerical Typewriter Operator Automatic Required: No PCP or OBGYN visit in last 3 months: Yes Hx Now: No Do You Feel Safe at Home: Yes Authorities Contacted: N/A Smoking Status Smoking Status: Light (< 1 pack/day) Cessation Counseling Provided: TACHO was advised that quitting smoking is the single most important factor to protect the health of themselves and their family. Discussed the benefits of quitting smoking with patient. Encouraged patient to quit smoking and provided Cessation assistance materials and resources. Tobacco Use: Cigarette Years smoked: 10 Are you interested in quitting?: No Immunization / Flu Flu Vaccine in the Last 12 Months: No Flu Vaccine Exclusion Criteria: Refused by Patient Past Medical History Past Medical History NEUROLOGIC: Negative Neurological Disorders or Seizures CARDIAC: Negative Cardiac Disorders, Congestive Heart Failure or Hypotension RESPIRATORY: Positive Asthma (allergy induced asthma as a child) and Bronchitis; Negative Chronic Obstructive Pulmonary Disease (COPD) GASTROINTESTINAL: Positive Gastrointestinal Disorders, Diverticulitis and Obesity; Negative Hepatitis GENITOURINARY: Positive Genitourinary Disorders, Renal Disease and Kidney Stones (none now) REPRODUCTIVE: Positive Previous Pregnancies (2) MUSCULOSKELETAL: Positive Arthritis and Gout ENDOCRINE: Negative Endocrine Disorders, Diabetes Mellitus Type 1 or Diabetes Mellitus Type 2 HEMATOLOGIC: Positive Blood Disorders and Anemia; Negative Sickle Cell Disease PSYCHO/SOCIAL: Positive Anxiety OTHER HISTORY: Positive Hospitalization (surgery, ICU admission x2 recently, kidney disease), Blood Transfusions and Chicken Pox; Negative Autoimmune Disease, Down Syndrome, Developmental Delay, Shingles, Falls, Blood Transfusion Reaction, Anesthesia Reactions, MRSA, Clostridium Difficile or Cancer Family History FAMILY HISTORY: Positive Family Cardiac Disorders, Family Cancer and Family Surgery; Negative Family Psychiatric Problems, Family Respiratory Disorders, Family Gastrointestinal Problems or Family Anesthesia Reaction Surgical History SURGICAL: Positive Tonsillectomy, Abdominal Surgery, Gastric Bypass Surgery, Bowel Surgery, Hysterectomy (ovaries still in place.) and Section Social History SMOKING STATUS: Smoking status: Light (< 1 pack/day) SECOND HAND EXPOSURE: second hand exposure: No (smoking occassionally) ALCOHOL: Alcohol Intake: Current ALCOHOL FREQUENCY: Alcohol Intake Frequency: holidays/special occasions only HOUSING: Housing: House LIVES WITH: Lives With: Spouse HPI HPI Narrative 60F who presented with symptomatic incisional hernia s/p elective repair with mesh on 02/27, course complicated by recurrence with incarcerated small bowel s/p urgent reduction and repair with additional mesh on 03/06/25 here for planned follow up. Pt reports feeling much better compared to last visit; she is no longer needing any pain medication and her bowel movements are more regular without any straining. The area that appeared somewhat raised at last visit has since resolved so she no longer has any areas that are bulging ROS Review of Systems Systems Reviewed: All systems reviewed, normal except as documented Objective/Exam General General Appearance: alert, cooperative and well groomed Resp Respiratory exam: Absent respiratory distress Abdominal Abdominal exam: Present soft and incision (midline incision well-healed); Absent distention, tenderness or hernia Assessment & Plan Diagnosis / Problem List (1) Incisional hernia: Status: Acute Qualifiers: Obstruction and gangrene presence: without obstruction or gangrene Qualified Code(s): K43.2 - Incisional hernia without obstruction or gangrene Plan 60F who presented with symptomatic incisional hernia s/p elective repair with mesh on 02/27, course complicated by recurrence with incarcerated small bowel s/p urgent reduction and repair with additional mesh on 03/06/25 here for planned follow up, recovering well overall. Pt feels she will be ready to return to work May 2025 and requested a note to this effect which I provided. I offered scheduled follow up vs as needed and pt prefers to reach out as needed Office Procedures GNS Level of Care Nursing/Assessment Patient Status: Established Patient Nursing Assessment/Reassesment: Medication Reconciliation, Update PMH in EMR and Vital Signs Coordination of Care: Complex Care and Chronic Disease 1-5, Education Complex Pt/Fam, Consent,records obtained, informed consent, Results/Orders obtained and Staff clarify orders Established Patient Charge Established Patient Point Assignment: 95 Established Patient Point Charge: EP Level 3 (80-115) Patient Portal Questionaires Social History Living Situation History Housing: House Tobacco History Smoking Status: Light (< 1 pack/day) Second Hand Smoke Exposure: No (smoking occassionally) Alcohol History Alcohol Intake: Current Alcohol Intake Frequency: holidays/special occasions only Domestic Abuse History Do You Feel Safe at Home: Yes Review of Systems Report any current symptoms Only answer those that you have currently: Past Medical History Past Medical History Have you ever been diagnosed with any of the following: Neurological Problems Seizures: No Cardiology Problems Congestive Heart Failure: No Hypotension: No Respiratory Problems Chronic Obstructive Pulmonary Disease (COPD): No Asthma: Yes (allergy induced asthma as a child) Bronchitis: Yes Stomache/Intestinal Problems Hepatitis: No Diverticulitis: Yes Obesity: Yes Genital/Urinary Problems Renal Disease: Yes Kidney Stones: Yes (none now) Reproductive Problems Previous Pregnancies: Yes (2) Musculoskeletal Problems Arthritis: Yes Gout: Yes Endocrine Problems Diabetes Mellitus Type 1: No Diabetes Mellitus Type 2: No Blood Problems Anemia: Yes Sickle Cell Disease: No Psychologic Problems Anxiety: Yes Other Problems Hospitalization: Yes (surgery, ICU admission x2 recently, kidney disease) Autoimmune Disease: No Down Syndrome: No Developmental Delay: No Shingles: No Falls: No Blood Transfusions: Yes Blood Transfusion Reaction: No Anesthesia Reactions: No MRSA: No Chicken Pox: Yes Clostridium Difficile: No Cancer: No Surgical History Hysterectomy: Yes (ovaries still in place.)
[2025-04-22 10:51] VITALS: BP 135/86; PULSE 88; RESP 18; TEMP 36.3; O2SAT 97; BMI 34.2
== END 2025-04-22 10:56 | disposition home or self-care (01) ==
LOC: HODSRG 10:08
PROVIDERS: PCP Family Medicine; Referring Provider Family Medicine; Supervising Provider Surgery; Visit Provider Surgery
DX: Z48.815 Encounter for surgical aftercare following surgery on the digestive system (principal); E66.9 Obesity, unspecified; Z68.34 Body mass index [BMI] 34.0-34.9, adult; F17.210 Nicotine dependence, cigarettes, uncomplicated; Z71.6 Tobacco abuse counseling
CPT/HCPCS: 99213; G0463